=== PATIENT | male | born 1945 | race Caucasian/White ===

== ENCOUNTER → 2020-05-07 | Outpatient (BNVA) | payer MEDICARE, BC, SELFPAY | PROVIDERS: PCP Nurse Practitioner Family; Referring Provider Internal Medicine; Visit Provider Internal Medicine | DX: J44.9 Chronic obstructive pulmonary disease, unspecified (principal); Z79.899 Other long term (current) drug therapy | CPT/HCPCS: 94010; 99213 ==

== ENCOUNTER 2020-06-09 09:18 | Outpatient (REF) | payer MEDICARE, BC, SELFPAY ==
[2020-06-09 11:54] LABS: Anion Gap 11 (12-20); Blood Urea Nitrogen 9 mg/dL (9-16); Calcium 8.8 mg/dL (8.4-10.2); Carbon Dioxide 29 mmol/L (22-29); Chloride 103 mmol/L (96-108); Cholesterol 142 mg/dL; Estimated Glomerular Filt Rate > 60; Glucose Fasting 88 mg/dL (60-99); HDL Cholesterol 65 mg/dL; LDL Cholesterol Calculated 66 mg/dl; Potassium 4.2 mmol/l (3.3-5.1); Sodium 139 mmol/L (135-145); Triglycerides 58 mg/dL
[2020-06-09 12:28] LABS: TSH reflex Free T4 0.73 mIU/mL (0.32-4.0)
== END 2020-06-09 09:19 | disposition home or self-care (01) ==
LOC: HO.HMGCLDS 09:18
PROVIDERS: PCP Nurse Practitioner Family; Visit Provider Nurse Practitioner Family
DX: I25.10 Atherosclerotic heart disease of native coronary artery without angina pectoris (principal); J44.9 Chronic obstructive pulmonary disease, unspecified
CPT/HCPCS: 80048; 80061; 84443

== ENCOUNTER 2020-11-05 09:14 | Outpatient (REF) | payer MEDICARE, BC, SELFPAY ==
[2020-11-05 10:37] LABS: MANUAL DIFF FLAG NO
[2020-11-05 11:03] LABS: Basophils Absolute Auto 0.1 X10*3/uL (0.0-0.2); Basophils Percent Auto 0.9 % (0-2); Eosinophils Absolute Auto 0.3 X10*3/uL (0.0-0.4); Eosinophils Percent Auto 4.9 % (0-4); Hematocrit 43.5 % (42-52); Hemoglobin 14.1 g/dl (14.0-18.0); Imm Gran Abs Auto 0.02 X10*3/uL (0.00-0.03); Imm Gran Pct Auto 0.4 % (0.0-0.4); Lymphocytes Absolute Auto 1.9 X10*3/uL (1.2-4.9); Lymphocytes Percent Auto 33.7 % (20-40); Mean Corpuscular HGB Conc 32.4 g/dl (31.0-36.0); Mean Corpuscular Hemoglobin 28.6 pg (27.0-33.0); Mean Corpuscular Volume 88.2 fL (80-98); Mean Platelet Volume 9.5 fL (9.4-12.4); Monocytes Absolute Auto 0.7 X10*3/uL (0.1-1.2); Monocytes Percent Auto 12.8 % (2-11); Neutrophils Absolute Auto 2.6 X10*3/uL (2.0-8.3); Neutrophils Percent Auto 47.3 % (45-73); Platelet Count 199 X10*3/uL (160-400); Red Blood Count 4.93 X10*6/uL (4.60-5.80); Red Cell Distribution Width 12.5 % (11.0-16.0); White Blood Count 5.5 X10*3/uL (4.8-10.8)
[2020-11-06 06:46] LABS: Immunoglobulin E 95 kU/L (<OR=114)
== END 2020-11-05 09:15 | disposition home or self-care (01) ==
LOC: HO.LAB 09:14
PROVIDERS: PCP Nurse Practitioner Family; Visit Provider Internal Medicine
DX: J44.9 Chronic obstructive pulmonary disease, unspecified (principal); Z87.891 Personal history of nicotine dependence; Z79.899 Other long term (current) drug therapy
CPT/HCPCS: 36415; 82785; 85025; 99212

== ENCOUNTER 2021-01-07 08:17 | Outpatient (REF) | payer MEDICARE, BC, SELFPAY ==
[2021-01-07 11:53] LABS: Alanine Aminotransferase 30 U/L (0-40); Albumin Level 4.5 g/dL (3.5-5.0); Alkaline Phosphatase 89 U/L (39-117); Anion Gap 13 (12-20); Aspartate Amino Transferase 35 U/L (5-37); Bilirubin Total 0.8 mg/dL (0.0-1.0); Blood Urea Nitrogen 16 mg/dL (9-16); Calcium 9.4 mg/dL (8.4-10.2); Carbon Dioxide 28 mmol/L (22-29); Chloride 105 mmol/L (96-108); Cholesterol 156 mg/dL; Estimated Glomerular Filt Rate > 60; Glucose Fasting 92 mg/dL (60-99); HDL Cholesterol 71 mg/dL; LDL Cholesterol Calculated 75 mg/dl; Potassium 4.5 mmol/L (3.3-5.1); Sodium 141 mmol/L (135-145); Triglycerides 53 mg/dL
[2021-01-07 12:16] LABS: Prostate Specific Antigen Scr 0.97 ng/mL (<0.05-4.0); TSH reflex Free T4 0.56 uIU/mL (0.32-4.0)
== END 2021-01-07 08:18 | disposition home or self-care (01) ==
LOC: HO.HMGCLDS 08:17
PROVIDERS: PCP Nurse Practitioner Family; Visit Provider Nurse Practitioner Family
DX: Z12.5 Encounter for screening for malignant neoplasm of prostate (principal); E78.5 Hyperlipidemia, unspecified; I10 Essential (primary) hypertension
CPT/HCPCS: 36415; 80053; 80061; 84153; 84443

== ENCOUNTER → 2021-04-17 08:23 | Outpatient (BNVA) | payer MEDICARE, BC, SELFPAY | PROVIDERS: PCP Nurse Practitioner Family; Visit Provider Nurse Practitioner | DX: Z12.11 Encounter for screening for malignant neoplasm of colon (principal); C34.90 Malignant neoplasm of unspecified part of unspecified bronchus or lung; I25.10 Atherosclerotic heart disease of native coronary artery without angina pectoris; J44.9 Chronic obstructive pulmonary disease, unspecified | CPT/HCPCS: Q3014 ==

== ENCOUNTER → 2021-05-19 09:00 | Outpatient (BNVA) | payer BC, MEDICARE, SELFPAY | PROVIDERS: PCP Nurse Practitioner Family; Visit Provider Internal Medicine ==

== ENCOUNTER 2021-06-10 10:32 | Day surgery (SDC) | payer MEDICARE, BC, SELFPAY ==
[2021-06-04 15:35] VITALS: BMI 26.9
--- NOTE | 2021-06-09 14:32 | HO.ANESPROP2 ---
Documented by User: Virginie Conn NP 06/09/21 14:34 HPI - Anesthesia Eval Consult details Narrative: 75yo M for Colonoscopy PMFSH Active Problems Active Problems: All Active Problems (Updated 05/19/21 @ 13:18 by Justin Crenshaw MD) Lung cancer (Acute) Screening for colon cancer (Acute) Screening PSA (prostate specific antigen) (Acute) HTN (hypertension) (Acute) Dyslipidemia (Acute) Asthma (Acute) CAD (coronary artery disease) (Acute) COPD (chronic obstructive pulmonary disease) (Acute) Past Medical History Medical History (Updated 06/10/21 @ 12:01 by Jane Macdonald RN) Asthma CAD (coronary artery disease) COPD (chronic obstructive pulmonary disease) Ectopic cardiac beats GERD (gastroesophageal reflux disease) HTN (hypertension) Leukopenia Lung cancer Trigger finger Family History Family History Father Medical history non-contributory Unknown family medical history Mother CVD (cardiovascular disease) Brother No problems noted. Son No problems noted. Surgical History Surgical History (Updated 06/10/21 @ 11:53 by Jane Macdonald RN) History of umbilical hernia repair Hx of colonoscopy Hx of hand surgery Hx of left knee surgery Social History Social History Patient Tobacco Use Status: Former Tobacco user Years Smoked: 8 years quit in early 20 Use of substances other than those prescribed or required for medical reasons: No Are you DNR?: No Advance Directives: No Advance Directives Information Provided: Yes Meds Allergies Allergy/AdvReac Type Severity Reaction Status Date / Time cat dander Allergy Severe Unknown Verified 06/10/21 11:43 Home Medications Medication Instructions Recorded Confirmed Last Taken Type famotidine 20 mg tablet 20 mg PO BID 04/19/20 04/17/21 06/10/21 08:00 History fluticasone 500 mcg-salmeterol 50 INHALATION 04/19/20 04/17/21 Unknown History mcg/dose blistr powdr for inhalation latanoprost 0.005 % eye drops drp OPHTHALMIC (EYE) DAILY ml 04/19/20 04/17/21 Unknown History aspirin 81 mg tablet,delayed 81 mg PO DAILY 04/17/21 04/17/21 Unknown History release (Adult Aspirin Regimen) fluticasone 500 mcg-salmeterol 50 1 inh INHALATION BID 04/17/21 04/17/21 Unknown History mcg/dose blistr powdr for inhalation (Advair Diskus) Exam Exam Date and Time: June 09, 2021 1432 Height,Weight and Vital Signs: Height 5 ft 9 in Weight 82.554 kg Pertinent Lab Results Pertinent Lab Results: Laboratory Tests 11/05/20 01/07/21 09:56 08:23 WBC 5.5 Hgb 14.1 Hct 43.5 Plt Count 199 Sodium 141 Potassium 4.5 Chloride 105 Carbon Dioxide 28 BUN 16 D Creatinine 0.96 Assessment and Plan Assessment Anesthesia Assessment: Chart Reviewed Documented by User: Gabriella Ng MD 06/10/21 12:09 [facility] Past Medical History Medical History (Updated 06/10/21 @ 12:01 by Jane Macdonald, RN) Asthma CAD (coronary artery disease) COPD (chronic obstructive pulmonary disease) Ectopic cardiac beats GERD (gastroesophageal reflux disease) HTN (hypertension) Leukopenia Lung cancer Trigger finger Family History Family History Father Medical history non-contributory Unknown family medical history Mother CVD (cardiovascular disease) Brother No problems noted. Son No problems noted. Family history of problems with anesthesia: No Surgical History Surgical History (Updated 06/10/21 @ 11:53 by Jane Macdonald, RN) History of umbilical hernia repair Hx of colonoscopy Hx of hand surgery Hx of left knee surgery History of Problems with Anesthesia: No Social History Social History Patient Tobacco Use Status: Former Tobacco user Years Smoked: 8 years quit in early 20 Use of substances other than those prescribed or required for medical reasons: No Are you DNR?: No Advance Directives: No Advance Directives Information Provided: Yes Meds Allergies Allergy/AdvReac Type Severity Reaction Status Date / Time cat dander Allergy Severe Unknown Verified 06/10/21 11:43 Home Medications Medication Instructions Recorded Confirmed Last Taken Type famotidine 20 mg tablet 20 mg PO BID 04/19/20 04/17/21 06/10/21 08:00 History fluticasone 500 mcg-salmeterol 50 INHALATION 04/19/20 04/17/21 Unknown History mcg/dose blistr powdr for inhalation latanoprost 0.005 % eye drops drp OPHTHALMIC (EYE) DAILY ml 04/19/20 04/17/21 Unknown History aspirin 81 mg tablet,delayed 81 mg PO DAILY 04/17/21 04/17/21 Unknown History release (Adult Aspirin Regimen) fluticasone 500 mcg-salmeterol 50 1 inh INHALATION BID 04/17/21 04/17/21 Unknown History mcg/dose blistr powdr for inhalation (Advair Diskus) Exam Airway Mallampati Class: II (Cap lower lateral left) TM Dist: >3cm Neck ROM: Full Heart: rrr Lungs: cta Assessment and Plan Assessment Anesthesia Assessment: Anesthesia Plan Discussed and Chart Reviewed Final Anesthetic Review Family History of Problems with Anesthesia: No History of Problems with Anesthesia: No NPO: Yes ASA Class: III Final Preanesthetic Review: No Changes in Pt Med Stat, Meds/Allgs Chart Reviewed and Consent Obtained/Reviewed Patient Risk: Intermediate Procedure Risk: Intermediate Anesthetic Plan Anesthetic Plan: MAC: Disposition: Standard PACU
[2021-06-10 11:44] VITALS: BP 151/84; PULSE 72; RESP 16; TEMP 36.6; O2SAT 98
--- NOTE | 2021-06-10 11:58 | MHC.SHP ---
Pre-Procedural Eval Section A Date of Service: 06/10/21 Section B Chief Complaint: Screening Relevant Family History (Specify if Yes): Yes Relevant Social History: None (ex smoker) Present Medications: see Short Stay Collaborative assessment Medical History: Significant History (Asthma Asthma CAD (coronary artery disease) COPD (chronic obstructive pulmonary disease) Ectopic cardiac beats GERD (gastroesophageal reflux disease) HTN (hypertension) Leukopenia Lung cancer Trigger finger) History of Previous Operations: Relevant previous surgery/procedure and date(s) (umbilical hernia repair) Allergies: Allergies Allergy/AdvReac Type Severity Reaction Status Date / Time cat dander Allergy Severe Unknown Verified 06/10/21 11:43 Review of Systems Sugical H&P ROS: Negative: Constitution, Cardiovascular, Respiratory, Neurological, Psychiatric, Hem-Onc, Allergic/Immunologic, Gastrointestinal, Genitourinary, Musculoskeletal, Integumentary, Endocrine and Eyes/Ears/Nose/Throat Exam Surgical H&P Exam: Normal: HEENT, Normal: Heart, Normal: Lungs, Normal: Extremities, Normal: Abdomen, Normal: Skin and Normal: Neurological Plan Diagnosis/Plan: Unchanged I have reviewed the history and physical and performed a pertinent physical examination on my patient. No changes have occurred unless specified.
[2021-06-10] MEDS: Lactated Ringers 1,000 ML 100 ML IVCONT (12:00)
--- NOTE | 2021-06-10 13:06 | PM.OP ---
Brief Operative Note Date of Service: 06/10/21 Pre-op diagnosis: colon screening Post-op diagnosis: same Procedure: see op note Surgeon: Gavin Hemphill MD Anesthesia: MAC Was an Financial Management Consultant used for this Procedure?: No Estimated blood loss (mL): 0 Condition: stable Disposition: PACU
--- NOTE | 2021-06-10 13:07 | W.PM.OPN ---
Operative Note Operative Note Date of Service: 06/10/21 Narrative: Operative Information Procedure Description: Colonoscopy COLONOSCOPY Instrument: Olympus variable stiffness adult scope 190L Colonoscopy Monitoring: Vital signs and clinical assessment, continuous EKG monitoring, Pulse oximetry, Carbon Dioxide monitoring and blood pressure monitoring were done throughout the procedure. Colon withdrawal time was 8 minutes. Procedure: The patient was placed in the left lateral decubitis position and pre-procedure medications were administered. After a digital rectal examination of the ano-rectum, the video colonoscope was inserted into the rectum and advanced through the colon to the cecum/TI. The colonoscope was slowly withdrawn in a retrograde panoramic fashion and the colon mucosa was carefully examined including a retroflexed view of the rectum. Findings and interventions are described below. Procedure Difficulty: easy Findings: Terminal Ileum-normal Cecum:normal Ascending Colon: normal Transverse Colon -normal Descending Colon:normal Sigmoid Colon: scattered small diverticuli Rectum: Retroflexion with moderate sized internal hemorrhoids, grade I Anorectum - normal Colon preparation: [place] Bowel Preparation Scale Right colon; 2 Transverse colon: 2 Left colon; 1 (0 = Unprepared colon segment with mucosa not seen due to solid stool that cannot be cleared. 1 = Portion of mucosa of the colon segment seen, but other areas of the colon segment not well seen due to staining, residual stool and/or opaque liquid. 2 = Minor amount of residual staining, small fragments of stool and/or opaque liquid, but mucosa of colon segment seen well. 3 = Entire mucosa of colon segment seen well with no residual staining, small fragments of stool or opaque liquid) Impression and Post Procedure Diagnosis: internal hemorrhoids diverticular disease Plan: High fiber diet leaflet Avoid straining at stool, epsom salts and sitz bath, anusol supps or cream Repeat Colonoscopy in 5 years due to left sided prep if health allows or earlier if clinically indicated Above findings were reviewed with the patient and relevant handouts were provided if indicated.
[2021-06-10 13:25] VITALS: BP 102/61; PULSE 63; RESP 16; TEMP 36.4; O2SAT 98
[2021-06-10 13:47] VITALS: BP 110/62; PULSE 68; RESP 16; O2SAT 96
== END 2021-06-10 14:15 | disposition home or self-care (01) ==
PROVIDERS: PCP Nurse Practitioner Family; Visit Provider Internal Medicine Gastroenterology
PROC: 0DJD8ZZ Inspection of Lower Intestinal Tract, Via Natural or Artificial Opening Endoscopic (ICD-10-PCS; CPT 45378; principal; 2021-06-10 13:20)
DX: Z12.11 Encounter for screening for malignant neoplasm of colon (principal); K57.30 Diverticulosis of large intestine without perforation or abscess without bleeding; K64.0 First degree hemorrhoids; K21.9 Gastro-esophageal reflux disease without esophagitis; J45.909 Unspecified asthma, uncomplicated; I25.10 Atherosclerotic heart disease of native coronary artery without angina pectoris; J44.9 Chronic obstructive pulmonary disease, unspecified; I10 Essential (primary) hypertension; R00.0 Tachycardia, unspecified; D72.819 Decreased white blood cell count, unspecified; Z79.82 Long term (current) use of aspirin; Z79.51 Long term (current) use of inhaled steroids; Z79.899 Other long term (current) drug therapy; Z85.118 Personal history of other malignant neoplasm of bronchus and lung; Z87.891 Personal history of nicotine dependence
CPT/HCPCS: G0121

== ENCOUNTER → 2021-06-23 10:45 | Outpatient (BNVA) | payer MEDICARE, BC, SELFPAY | PROVIDERS: PCP Nurse Practitioner Family; Referring Provider Nurse Practitioner Family; Visit Provider Nurse Practitioner | DX: Z12.11 Encounter for screening for malignant neoplasm of colon (principal) | CPT/HCPCS: 99212 ==

== ENCOUNTER → 2021-09-24 08:58 | Outpatient (BNVA) | payer MEDICARE, BC, SELFPAY | PROVIDERS: PCP Nurse Practitioner Family; Visit Provider Internal Medicine | DX: J44.9 Chronic obstructive pulmonary disease, unspecified (principal); J30.9 Allergic rhinitis, unspecified | CPT/HCPCS: 99212 ==

== ENCOUNTER → 2021-11-30 13:47 | Outpatient (REF) | payer MEDICARE, BC, SELFPAY ==
--- NOTE | 2021-11-30 13:56 | CA_ITS ---
Transthoracic Echocardiogram Patient (Last, First, Middle): Baljeet Jamil, Gender: Male Date of : 1945 Age: 75 Procedure Date: 11/30/2021 Procedure Type: Transthoracic Echocardiogram Location: OP Height: 175.26 cm Weight: 81.65 kg BSA: 1.98 m2 Heart Rate: bpm BP: 125 / 80 mmHg Chief Security Officer: VH/TO Referring MD: Daniel Mejia [facility] Certified Maintenance Welder: Michael Mobley MD Symptoms: I34.0 - Nonrheumatic mitral (valve) insufficiency Study Quality: Fair ECG Rhythm: Sinus Conclusions: - 1. Normal LV systolic function with grade 1 diastolic dysfunction 2. Normal cardiac valvular Doppler 3. Normal RV systolic pressure 4. No pericardial effusion Findings Left Ventricle Normal left ventricular size, thickness, and systolic function. The visually estimated ejection fraction is between 60-65%. Spectral Doppler is indicative of an impaired relaxation filling pattern. E/E prime ratio is <8, consistent with normal filling pressures. Evidence suggests grade I (mild) diastolic dysfunction. Right Ventricle Normal right ventricular cavity size and systolic function. Atria Both atria are normal in size. There is lipomatous hypertrophy of the interatrial septum. There is no evidence of interatrial shunt. Aortic Valve The aortic valve structure and function is likely normal. There is no aortic valve stenosis. There is no aortic valve regurgitation. Mitral Valve Likely normal mitral valve structure and function. There is trace mitral valve regurgitation. There is no mitral valve stenosis. Pulmonic Valve The pulmonic valve was not well visualized. Tricuspid Valve Likely normal tricuspid valve structure and function. There is trace tricuspid valve regurgitation. The right ventricular systolic pressure is normal. The right ventricular systolic pressure is 16 mmHg. Normal right atrial pressure. There is no evidence of pulmonary hypertension. Great Vessels All visible segments of the aorta are normal in size. The pulmonary artery was not well visualized. Venous The inferior vena cava is normal in size and collapses greater than 50% with inspiration. Pericardium/Pleural There is no evidence of pericardial effusion. Prior Study Comparison No significant change compared to prior study dated: 09/13/2017. Measurements 2D Linear Measurements IVSd: 0.86 0.6-0.9/0.6-1.0 cm LVIDd: 4.80 3.9-5.3/4.2-5.9 cm LVIDd Index: 2.42 2.4-3.2/2.2-3.1 cm/m2 LVIDs: 3.04 2.0-3.6 cm LVPWd: 0.82 0.7-1.1 cm LA Diam: 3.30 2.7-3.8/3.0-4.0 cm LAIDs Index: 1.67 1.5-2.3 cm/m2 LV Mass: 167.70 67-162/88-224 g LV Mass Index: 84.70 43-95/49-115 g/m2 LVOT Diam: 1.80 3.0+(-)1.3 cm 2D Systolic Function EF 4C: 61.90 >55% EF 2C: 62.30 >55% EF BiP: 63.10 >55% Mitral Valve MV Pk E: 0.70 MV PK A: 0.75 MV Decel Time: 197.00 E/A: 0.90 E'Lateral: 8.92 E'Medial: 7.83 E/E' Med: 8.90 E/E' Lat: 7.80 PHT: 58.00 MVA PHT: 3.79 Decel [place]: 3.54 Aortic Valve AoV Pk Adal: 1.56 AoV Mn Adal: 1.11 AoV VTI: 0.32 AoV Pk Grad: 10.00 Aov Mn Grad: 5.00 BURT Cont.VTI: 1.85 LVOT LVOT Pk Adal: 1.10 LVOT Mn Adal: 0.68 LVOT VTI: 0.23 LVOT Pk Grad: 5.00 LVOT Mn Grad: 2.00 LVOT Diam: 1.80 LVOT Area: 2.54 Diastolic Function MV Pk E: 0.70 MV Pk A: 0.75 E/A: 0.90 E'Medial: 7.83 E/E' Med: 8.90 E' Laterial: 8.92 E/E' Lat: 7.80 Right Ventricle TAPSE (mm): 22.00 TVS' Adal: 14.00 Tricuspid Valve TR Pk Adal: 1.83 TR Pk Grad: 13.00 RA Press: 3.00 RVSP: 16.00 Great Vessels Aorta Ao Asc: 3.20 2.1-3.4 cm Updated in Other Vendor System with Status of Final Michael Mobley MD electronically signed on 12/01/2021 4:05:57 PM with status of Final
== END ==
LOC: HO.CARD 13:47
PROVIDERS: Visit Provider Nurse Practitioner Family
DX: I34.0 Nonrheumatic mitral (valve) insufficiency (principal)
CPT/HCPCS: 93306

== ENCOUNTER → 2022-01-14 09:39 | Outpatient (REF) | payer MEDICARE, BC, SELFPAY ==
--- NOTE | ~2022-01-14 | NM_ITS ---
Exercise Myocardial perfusion study Indication: Chest pain to evaluate for myocardial ischemia Technique: The patient was brought in for an exercise perfusion study on 01/14/2022. Patient performed exercise as per Manish protocol and was injected 25 mCi of sestamibi was given intravenously one target HR was achieved. Images were obtained using the SPECT gamma camera interlaced with the gating device. Images were obtained in supine position. Resting perfusion study was performed on 01/15/2022. Patient was administered 25 mCi of sestamibi intravenously at rest. Images were then obtained in supine position. Images obtained with and without CT attenuation. Total DLP 87 mGy-cm. Images were processed with the software and compared side to side in short axis, horizontal long axis and vertical long axis views. Findings: The stress perfusion study showed non attenuated images show mildly to moderately reduced uptake in the inferior wall of the LV myocardium. Remainder of the LV myocardium is normally perfused. Attenuated corrected images show normal uptake of radiotracer in all segments of LV myocardium. The gated study shows normal LV systolic function with calculated LVEF of 68%. LV cavity is normal in size. The gated study shows normal systolic wall thickening and contraction of all segments. There is no transient ischemic dilation. Resting study shows non attenuated images show mildly reduced uptake in the inferior wall of the LV myocardium. Attenuated corrected images were suboptimal. Gating at rest reveals normal systolic wall motion with ejection fraction at 73%. The findings are consistent with normal myocardial perfusion. NM/NM cardiolite stress test Impression: 1. Normal myocardial perfusion 2. Gated LVEF is 68% 3. Transient ischemic dilatation not present Stress EKG is negative for ischemia
--- NOTE | 2022-01-14 09:42 | CA_ITS ---
Acquisition Time: 2022-01-14 10:03:45 Total Exercise Time: 00:05:00 Test Indications: Chest Pain Medications: ALBUTEROL AMLODIPINE ASA ATORVASTATIN CITALOPRAM FAMOTIDINE LISINOPRIL SYMBACORT SINGULAIR Protocol: COLLETTE Max HR: 134 BPM 91% of Pred: 146 BPM Max BP: 192/092 mmHG Max Work Load: 7.0 METS Exercise stress test with exercise 5 min of Collette protocol, with moderate sob, no chest discomfort, with isolated PVCs, one ventricular cuplet and one 4 beat NSVT, isolated PACs and one 3 beat atrial run during exercise, with normotensvie response to exercise, without EKG changes meeting criteria for ischemia. In recovery his breathing normalized. Nuclear images pending. Test reviewed with Dr Mobley. Referred By: Daniel Mejia Overread By: BELLA RODRIGUEZ
== END ==
LOC: HO.CARD 09:39
PROVIDERS: PCP Nurse Practitioner Family; Visit Provider Nurse Practitioner Family
DX: R07.9 Chest pain, unspecified (principal)
CPT/HCPCS: 78452; 93017; A9500; J0280; J2785

== ENCOUNTER → 2022-03-30 09:17 | Outpatient (BNVA) | payer MEDICARE, BC, SELFPAY | PROVIDERS: PCP Nurse Practitioner Family; Visit Provider Internal Medicine | DX: J44.9 Chronic obstructive pulmonary disease, unspecified (principal); J30.9 Allergic rhinitis, unspecified | CPT/HCPCS: 99212 ==

== ENCOUNTER → 2022-10-04 09:22 | Outpatient (BNVA) | payer MEDICARE, BC, SELFPAY | PROVIDERS: PCP Nurse Practitioner Family; Visit Provider Internal Medicine | DX: J45.909 Unspecified asthma, uncomplicated (principal); J44.9 Chronic obstructive pulmonary disease, unspecified | CPT/HCPCS: 99212 ==

== ENCOUNTER 2023-03-01 09:54 | Outpatient (AMB) | payer MEDICARE, OTHER, SELFPAY ==
[2023-03-01 10:10] VITALS: BP 140/82; PULSE 68; O2SAT 94; BMI 27.0
--- NOTE | 2023-03-01 10:10 | MHC.PC.OV ---
Vital Signs 03/01/23 10:10 Height 5 ft 9 in Weight 183 lb BMI 27.0 BP 140/82 H Blood Pressure Location Rt brachial Position Sitting Pulse 68 Pulse Source Pulse Oximeter Pulse Oximetry (%) 94 Oxygen Delivery Method Room Air Intake Visit Reasons: Med review Allergies cat dander Allergy (Severe, Verified 03/01/23 10:12) Unknown Tobacco use date assessed: 03/01/23 Fall risk assessment: No Falls in past year Last assessed Fall Risk: 03/01/23 Dental Screening Dental Screen Date: 03/01/23 Did you have a dental visit in the last 12 months?: Yes Did you have a dental problem in the last 6 months where you did not have access to dental care?: No Was dental information given to patient?: Patient has dentist HPI Med review HPI Details HTN: Blood pressure is managed with amlodipine 5mg and lisinopril 20mg. Pt reports white-coat syndrome. Denies chest pain, shortness of breath, headache, dizziness, and blurred vision. Pt reports some difficulty urinating. He does not feel like he is completely emptying his bladder and he takes longer to urinate. Will order PSA. Denies any dribbling with urination and weak stream, refuses STERLING today. Dyslipidemia: On atorvastatin 40mg. Will order labs. [facility] Medical History Allergic rhinitis Asthma CAD (coronary artery disease) COPD (chronic obstructive pulmonary disease) Ectopic cardiac beats GERD (gastroesophageal reflux disease) HTN (hypertension) Leukopenia Lung cancer Trigger finger Surgical History History of umbilical hernia repair Hx of colonoscopy Hx of hand surgery Hx of left knee surgery Family History Father Medical history non-contributory Unknown family medical history Mother CVD (cardiovascular disease) Brother No problems noted. Son No problems noted. 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 Garcia Ruth, Jess Charles, Benito Kennedy and colleagues, with an educational uziel from [employer]. Review of Systems Const Reports as per HPI Physical exam (Primary Care) Vital Signs: Last Vital Signs Pulse 68 03/01/23 10:10 BP 140/82 H 03/01/23 10:10 Pulse Ox 94 03/01/23 10:10 Oxygen Delivery Method Room Air 03/01/23 10:10 BMI result Body Mass Index 27.0 Tobacco/Smoking Status: Tobacco use Status Tobacco use date assessed 03/01/23 03/01/23 10:16 Patient Tobacco Use Status Former Tobacco user 03/01/23 10:16 e-Cigarette/Vaping Use Never Used 03/01/23 10:16 Thrive Assessment: Date of Thrive Assessment Date Thrive assessed 11/17/21 03/01/23 10:16 Const General: cooperative Orientation/consciousness: patient oriented x3 Resp Effort & Inspection: normal respiratory effort Auscultation: clear to auscultation bilaterally Cardio Rate: regular rate Rhythm: regular rhythm Heart sounds: S1 normal heart sound present and S2 normal heart sound present Other: refused STERLING Neuro General: patient oriented x3 Extrem Right lower extremity: no edema Left lower extremity: no edema Psych Appearance: grossly normal Mental Status: mental status grossly normal Speech and movement: Normal speech and movement present Affect: normal affect Attitude: cooperative Thought process: Normal thought process present Thought content: Normal thought content present Insight: Good insight present (Psych) Judgement: Good judgement present (Psych) Assessment and Plan Assessment & Plan (1) HTN (hypertension): Code(s): I10 - Essential (primary) hypertension Plan: Labs ordered (2) Dyslipidemia: Code(s): E78.5 - Hyperlipidemia, unspecified Plan: Labs ordered (3) Screening PSA (prostate specific antigen): Code(s): Z12.5 - Encounter for screening for malignant neoplasm of prostate Plan: PSA ordered Plan The patient agreed to the use of a director of medical education for this encounter. Scribed for TEOFILO Ledesma by Bree Hadley, director of medical education, on 03/01/2023 at 10:25 EST. Orders: Orders Comprehensive [place]. Panel Fast Today E78.5 - Hyperlipidemia, unspecified, I10 - Essential (primary) hypertension Lipid Panel Today E78.5 - Hyperlipidemia, unspecified, I10 - Essential (primary) hypertension TSH reflex Free T4 Today E78.5 - Hyperlipidemia, unspecified, I10 - Essential (primary) hypertension Complete Blood Count Auto Diff Today E78.5 - Hyperlipidemia, unspecified, I10 - Essential (primary) hypertension UA CC w/rflx Micro + Cult Today E78.5 - Hyperlipidemia, unspecified, I10 - Essential (primary) hypertension Prostate Specific Antigen Scr Today Z12.5 - Encounter for screening for malignant neoplasm of prostate Coding Level of Care Code Est Pt Level 3 (53808) Diagnoses HTN (hypertension) I10 Dyslipidemia E78.5 Screening PSA (prostate specific antigen) Z12.5
== END 2023-03-01 11:00 | disposition home or self-care (01) ==
PROVIDERS: PCP Nurse Practitioner Family; Visit Provider Nurse Practitioner Family
DX: I10 Essential (primary) hypertension (principal); E78.5 Hyperlipidemia, unspecified; Z12.5 Encounter for screening for malignant neoplasm of prostate
CPT/HCPCS: 99213

== ENCOUNTER 2023-03-29 09:43 | Outpatient (AMB) | payer MEDICARE, OTHER, SELFPAY ==
[2023-03-29 09:49] VITALS: BP 120/70; PULSE 68; O2SAT 96; BMI 27.0
--- NOTE | 2023-03-29 09:49 | A.OFFVIS_ITS ---
Intake Vital Signs 03/29/23 09:49 Height 5 ft 9 in Weight 183 lb BMI 27.0 BP 120/70 Blood Pressure Location Lt brachial Position Sitting Pulse 68 Pulse Source Pulse Oximeter Pulse Oximetry (%) 96 Oxygen Delivery Method Room Air Intake Visit Reasons: copd Intake Note: pt is here for follow up and states his breathing is okay but gets a discomfort in center of chest. [employer] Required: No Allergies cat dander Allergy (Severe, Verified 03/29/23 09:54) Unknown Medication List - Last Reconciled 03/29/23 by Justin Crenshaw MD albuterol sulfate 90 mcg/actuation 2 puffs PO Q6H PRN amlodipine 5 mg PO DAILY 90 days ascorbate calcium (vitamin C) 500 mg PO DAILY aspirin (Adult Aspirin Regimen) 81 mg PO DAILY 90 days atorvastatin 40 mg PO DAILY 90 days cholecalciferol (vitamin D3) 50 mcg PO DAILY citalopram 20 mg PO DAILY 90 days famotidine 20 mg PO BID PRN fluticasone propion-salmeterol 250-50 mcg/dose (Advair Diskus) 1 inh inhalation Q12H 90 days latanoprost 0.005% drps ophthalmic (eye) DAILY lisinopril 20 mg PO DAILY montelukast 10 mg PO BEDTIME vitamin E (dl, acetate) 45 mg PO DAILY Do you need a note to return to daycare/school/sports/work: No HPI copd HPI Details 77 YEARS OLD VERY PLEASANT GENTLEMAN, COMES AFTER 6 MONTHS FOR HIS REGULAR FOLLOW-UP. HIS TWO MAIN PROBLEMS OR ALLERGIC RHINITIS AND BRONCHIAL ASTHMA/COPD . 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 HE STARTED DOING YOGA EXERCISE, AND JUST AFTER THE 1ST SESSION HE STARTED HAVING SOME DISCOMFORT IN THE MID STERNAL AREA, IT IS GOING AWAY. BREATHING HAS BEEN STABLE, HE DOES GET SHORT OF BREATH ON MODERATE AMOUNT OF EXERTION. HE DOES HAVE MILD INTERMITTENT COUGH AND MILD NASAL CONGESTION OFF AND. [facility] Medical History Allergic rhinitis Asthma CAD (coronary artery disease) COPD (chronic obstructive pulmonary disease) Ectopic cardiac beats GERD (gastroesophageal reflux disease) HTN (hypertension) Leukopenia Lung cancer Trigger finger Surgical History History of umbilical hernia repair Hx of colonoscopy Hx of hand surgery Hx of left knee surgery Family History Father Medical history non-contributory Unknown family medical history Mother CVD (cardiovascular disease) Brother No problems noted. Son No problems noted. 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 Current occupational exposures/hazards: No Cognitive needs: No Hearing needs: No Vision needs: No Review of Systems Const All systems reviewed & are unremarkable except as noted in HPI and below ENT Reports nasal congestion (Mild intermittent) and Reports nasal discharge Card Denies chest pain, Denies irregular heart rhythm and Denies leg edema Resp Reports as per HPI GI Reports heartburn (Controlled with med) Reports no additional complaints Musc Reports no additional complaints Skin/Breast Reports system reviewed and no additional complaints, except as documented Neuro Reports no additional complaints Psych Reports depression (Controlled with med) Endo Reports no additional complaints Pernell/Lymph Reports no additional complaints Physical Exam Vital Signs: Last Vital Signs Pulse 68 03/29/23 09:49 BP 120/70 03/29/23 09:49 Pulse Ox 96 03/29/23 09:49 Oxygen Delivery Method Room Air 03/29/23 09:49 BMI result Body Mass Index 27.0 Const General: healthy appearing, comfortable, no acute distress, alert and awake Orientation/consciousness: patient oriented x3 HEENT Head: Yes normal to inspection General nose exam: No nasal polyps present and No nasal discharge present Face and sinus: Yes sinuses nontender Mouth: oropharynx normal Throat: Yes posterior oropharynx normal Eyes General: appearance normal, both eyes and all related structures Neck Neck: Yes normal visual inspection, Yes no lymphadenopathy, Yes trachea midline and Yes no JVD Thyroid: Thyroid normal Chest Chest palpation & inspection: normal inspection of the chest, normal palpation of entire chest wall and no tenderness Resp Other: Percussion note resonant, breath sounds are slightly distant with prolonged expiratory phase. No audible wheezes rhonchi or crepitations. Cardio Palpation: normal PMI Rate: regular rate Rhythm: regular rhythm Heart sounds: no gallops and no murmurs Peripheral pulses: Peripheral pulses 2+ throughout GI Palpation (GI): Soft to palpation, nontender, No hepatosplenomegaly present and no masses Auscultation: normal bowel sounds Back/Spine/Pelvis Thoracic/Lumbar Spine: thoracic and lumbar spine normal to inspection Skin General skin exam: no rashes or lesions noted Neuro General: patient oriented x3 and no focal motor deficits Cranial nerves: Yes CN's II-XII intact bilaterally Extrem General: Yes normal to inspection, Yes no clubbing, cyanosis or edema and Yes no calf tenderness Psych Appearance: grossly normal and well kempt Speech and movement: Normal speech and movement present Office Procedures Spirometry Testing Spirometry Comments: Spirometry done in the office, Dr. Crenshaw has the results results scanned to his chart. [id number]- Spirometry Results Reviewed Results Reviewed: SPIROMETRY FVC FEV1 FEF 25- 75 05/07/20 78 % 51 % 31 % 03/29 75 % 44 % 24 5 Assessment & Plan Assessment & Plan (1) COPD (chronic obstructive pulmonary disease): Comment: HE HAS CHRONIC OBSTRUCTIVE , PULM . DISORDER , MODERATELY SEVERE , BUT REMAINS STABLE . TX: CONTINUE AIRDUO 232-14 1 INHALATION B.I.D.. PROAIR 2 PUFFS ONLY PRN * SPIROMETRY FINDINGS ARE SLIGHTLY WORSE THAN IN 2020. SYMPTOM MEDICALLY HE IS STABLE. SO WILL CONTINUE THE SAME REGIMEN. Code(s): J44.9 - Chronic obstructive pulmonary disease, unspecified (2) Asthma: Comment: He has longstanding symptoms of allergic rhinitis/asthma, in the past . And the CBC has shown elevated Eiosinophil count. Also elevated IgE level. Thus indicating that he has a component of allergic rhinitis/asthma. However now it has gone more into chronic obstructive pulmonary disorder. TX CONT. TO TAKE SINGULAIR 10 MG DAILY AND CETRIZINE 10 MG PO ONCE ADAY PRN . also see under COPD Code(s): J45.909 - Unspecified asthma, uncomplicated (3) Allergic rhinitis: Comment: Mild chronic, well controlled. TX: Continue montelukast 10 mg daily may use loratadine 10 mg or Cetrizine 10 mg on a p.r.n. basis Code(s): J30.9 - Allergic rhinitis, unspecified Orders: Orders AMB Spirometry Testing Today J44.9 - Chronic obstructive pulmonary disease, unspecified Coding Level of Care Code Est Pt Level 3 (29838) Diagnoses COPD (chronic obstructive pulmonary disease) J44.9 Asthma J45.909 Allergic rhinitis J30.9 CPT Codes Spirometry - CPT: 42963- Spirometry ([id number])
== END 2023-03-29 10:26 | disposition home or self-care (01) ==
PROVIDERS: PCP Nurse Practitioner Family; Visit Provider Internal Medicine
DX: J44.9 Chronic obstructive pulmonary disease, unspecified (principal); J45.909 Unspecified asthma, uncomplicated; J30.9 Allergic rhinitis, unspecified
CPT/HCPCS: 94010; 99213

== ENCOUNTER → 2023-03-29 09:43 | Outpatient (BNVA) | payer MEDICARE, OTHER, SELFPAY | PROVIDERS: PCP Nurse Practitioner Family; Visit Provider Internal Medicine | DX: J44.9 Chronic obstructive pulmonary disease, unspecified (principal); J45.909 Unspecified asthma, uncomplicated; Z79.899 Other long term (current) drug therapy | CPT/HCPCS: 94010; 99212 ==

== ENCOUNTER 2023-03-30 08:55 | Outpatient (REF) | payer MEDICARE, OTHER, SELFPAY ==
[2023-03-30 11:27] LABS: Appearance Urine Clear; Color Urine Yellow; Glucose Urine UA Negative (Negative); Leukocyte Esterase Urine Trace (Negative); Nitrite Urine Negative (Negative); Specific Gravity - Urine 1.015 (1.005-1.025); UMIC TRIGGER UACC YES; Urine Blood Negative (Negative); Urine Ketones Negative (Negative); Urine Protein Negative (Neg-Trace)
[2023-03-30 11:31] LABS: Bacteria Urine None Seen (None Seen); Hyaline Casts Urine 0-2 /LPF (0-2); RBC Urine 0-2 /HPF (0-2); Squamous Epithelial Cell Urine 0-2 /HPF (0-2); WBC Urine 0-5 /HPF (0-5)
[2023-03-30 11:47] LABS: MANUAL DIFF FLAG NO
[2023-03-30 11:49] LABS: Basophils Percent Auto 0.8 % (0-2); Eosinophils Absolute Auto 0.3 X10*3/uL (0.0-0.4); Eosinophils Percent Auto 6.5 % (0-4); Hematocrit 43.5 % (42.0-52.0); Hemoglobin 14.4 g/dl (14.0-18.0); Imm Gran Abs Auto 0.02 X10*3/uL (0.00-0.03); Imm Gran Pct Auto 0.4 % (0.0-0.4); Lymphocytes Percent Auto 19.4 % (20-40); Mean Corpuscular HGB Conc 33.1 g/dl (31.0-36.0); Mean Corpuscular Hemoglobin 29.2 pg (27.0-33.0); Mean Corpuscular Volume 88.2 fL (80.0-98.0); Monocytes Percent Auto 18.8 % (2-11); Neutrophils Absolute Auto 2.8 x10*3/uL (2.0-8.3); Neutrophils Percent Auto 54.1 % (45-73); Platelet Count 188 X10*3/uL (160-400); Red Blood Count 4.93 X10*6/uL (4.60-5.80); Red Cell Distribution Width 13.3 % (11.0-16.0); White Blood Count 5.1 X10*3/uL (4.8-10.8)
[2023-03-30 12:32] LABS: Prostate Specific Antigen Scr 1.62 ng/mL (<0.05-4.0)
[2023-03-30 12:46] LABS: Alanine Aminotransferase 46 U/L (0-40); Albumin Level 4.3 g/dL (3.5-5.0); Alkaline Phosphatase 83 U/L (39-117); Anion Gap 12 (12-20); Aspartate Amino Transferase 59 U/L (5-37); Bilirubin Total 0.7 mg/dL (0.0-1.0); Blood Urea Nitrogen 13 mg/dL (9-16); Calcium 9.7 mg/dL (8.4-10.2); Carbon Dioxide 28 mmol/L (22-29); Chloride 106 mmol/L (96-108); Cholesterol 149 mg/dL (<200); Estimated Glomerular Filt Rate > 60; Glucose Fasting 97 mg/dL (60-99); HDL Cholesterol 62 mg/dL (>40); LDL Cholesterol Calculated 74 mg/dL (<100); Potassium 4.6 mmol/L (3.3-5.1); Sodium 141 mmol/L (135-145); TSH reflex Free T4 0.79 uIU/mL (0.32-4.0); Triglycerides 68 mg/dL (<150)
== END 2023-03-30 08:56 | disposition home or self-care (01) ==
LOC: HO.HMGCLDS 08:55
PROVIDERS: PCP Nurse Practitioner Family; Visit Provider Nurse Practitioner Family
DX: Z12.5 Encounter for screening for malignant neoplasm of prostate (principal); I10 Essential (primary) hypertension; E78.5 Hyperlipidemia, unspecified
CPT/HCPCS: 36415; 80053; 80061; 81001; 84153; 84443; 85025

== ENCOUNTER 2023-04-07 08:44 | Outpatient (REF) | payer MEDICARE, OTHER, SELFPAY ==
--- NOTE | ~2023-04-07 | US_ITS ---
EXAMINATION: US ABDOMEN COMPLETE CLINICAL INFORMATION: Abnormal levels of other serum enzymes. COMPARISON: None available. TECHNIQUE: Real-time imaging of the abdominal viscera. FINDINGS: PANCREAS: Normal. ABDOMINAL AORTA: The proximal, mid, and distal segments are normal in caliber. There is trace distal atherosclerotic calcifications. INFERIOR VENA CAVA: Visualized portions are normal. LIVER: Normal. The liver is normal in size. The liver contour is normal. Parenchymal echogenicity is normal. No focal hepatic lesion. There is no intrahepatic biliary duct dilatation seen. GALLBLADDER: Normal. The gallbladder is physiologically distended without evidence of stones, sludge, polyps, wall thickening or pericholecystic fluid. COMMON BILE DUCT: Normal in caliber measuring 0.46 cm in diameter. RIGHT KIDNEY: Normal. No hydronephrosis. No renal calculi or focal parenchymal lesions. The kidney measures 11.4 cm in maximum dimension. LEFT KIDNEY: There is mild atherosclerotic calcifications in the upper pole. No hydronephrosis. No renal calculi or focal parenchymal lesions. The kidney measures 11.6 cm in maximum dimension. SPLEEN: Normal. The spleen measures 11.2 cm in maximum dimension. FREE FLUID: None. US/US abdomen complete IMPRESSION: Unremarkable examination.
== END 2023-04-07 08:45 | disposition home or self-care (01) ==
LOC: HO.HMGCX 08:44
PROVIDERS: PCP Nurse Practitioner Family; Visit Provider Nurse Practitioner Family
DX: R74.8 Abnormal levels of other serum enzymes (principal)
CPT/HCPCS: 76700

== ENCOUNTER 2023-04-29 09:11 | Outpatient (REF) | payer MEDICARE, OTHER, SELFPAY | END 2023-04-29 09:12 | disposition home or self-care (01) | LOC: HO.HMGCLDS 09:11 | PROVIDERS: PCP Nurse Practitioner Family; Visit Provider Nurse Practitioner Family | DX: I10 Essential (primary) hypertension (principal); R74.8 Abnormal levels of other serum enzymes; E78.5 Hyperlipidemia, unspecified | CPT/HCPCS: 36415; 80076; 81003; 86704; 86706; 86709; 86803; 87340 ==

== ENCOUNTER 2023-07-06 12:59 | Outpatient (AMB) | payer MEDICARE, OTHER, SELFPAY ==
--- NOTE | 2023-07-06 13:14 | MHC.OFFWIV ---
Intake Vital Signs 07/06/23 13:28 Height 5 ft 9 in Weight 183 lb BMI 27.0 BP 110/70 Blood Pressure Location Lt brachial Position Sitting Pulse 67 Pulse Source Pulse Oximeter Temp 97.7 F Pulse Oximetry (%) 96 Oxygen Delivery Method Room Air Intake Visit Reasons: EST/congestion([phone]) Intake Note: pt is here today for congestion startred tuesday Patient Tobacco Use Status: Former Tobacco user Allergies cat dander Allergy (Severe, Verified 07/06/23 13:30) Unknown Do you need a note to return to daycare/school/sports/work: Yes HPI HPI Comments History of Present Illness Details patient has hx of lung ca with partial lung removal he said ST over weekend with hoarsness Has congestion and cough now Called director nursery school but unable to prescribe anything for him Some SOB but no CP No fever but + chill No body aches He tried OTC mucinex with some relief Feels like mucus stuck in chest PFSH Medical History Allergic rhinitis Asthma CAD (coronary artery disease) COPD (chronic obstructive pulmonary disease) Ectopic cardiac beats GERD (gastroesophageal reflux disease) HTN (hypertension) Leukopenia Lung cancer Trigger finger Surgical History History of umbilical hernia repair Hx of colonoscopy Hx of hand surgery Hx of left knee surgery Family History Father Medical history non-contributory Unknown family medical history Mother CVD (cardiovascular disease) Brother No problems noted. Son No problems noted. 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 Current occupational exposures/hazards: No Cognitive needs: No Hearing needs: No Vision needs: No Review of Systems Const Reports chills, Denies fever(s), Denies headache(s) and Denies malaise Eyes Denies blurry vision ENT Denies dizziness, Denies ear discharge, Denies headache(s), Reports nasal congestion, Reports nasal discharge, Reports sinus pressure, Denies sore throat and Denies throat swelling Card Denies chest pain Resp Reports cough Neuro Denies dizziness and Denies headache(s) Aller/Immun Denies throat swelling Physical Exam Vital Signs: Last Vital Signs Temp 97.7 F 07/06/23 13:28 Pulse 67 07/06/23 13:28 BP 110/70 07/06/23 13:28 Pulse Ox 96 07/06/23 13:28 Oxygen Delivery Method Room Air 07/06/23 13:28 BMI result Body Mass Index 27.0 General: Non-toxic, NAD. Speaking full sentences. Skin: Warm dry throughout Eye: EOMI HENT: Airway patent. Uvula midline. No pharyngeal erythema or edema. No MANAGER PLANT. Bilateral canals clear. TM non-erythematous, non-bulging. No TM perforation or hemotympanum noted. Respiratory: CTA bilaterally. No wheezes, rales or rhonchi Cardiac: RRR. No murmur MSK: Full ROM extremities. Neurology: A/O. No aphasia or facial droop. Gait without abnormality Psych: Good mood and affect Results AMB Rapid Strep AMB Rapid Strep Negative Last Edit by Minnie Schwartz CMA on 07/06/23 13:32 Results Reviewed Results Reviewed: Laboratory Last Values Strep Scn Rapid Clinic Negative 07/06/23 13:31 Assessment & Plan Assessment & Plan (1) Cough: Code(s): R05.9 - Cough, unspecified Qualifiers: Cough type: acute Qualified Code(s): R05.1 - Acute cough Plan Patient seen and evaluated. Strep negative declined rsv/flu/covid tessalon for cough Will monitor for fever, phelgm color change, onset SOB/CP and call with concerns of bacteria Follow up with pulmonology ED if worse Patient gave verbal understanding and had no additional questions or concerns at time of discharge All questions answered Orders: Orders AMB Rapid Strep Screen 07/06/23 Z13.9 - Encounter for screening, unspecified Medications: New benzonatate 100 mg PO BID-TID PRN 14 caps 0RF cough R05.9 - Cough, unspecified Coding Level of Care Code Est Pt Level 3 (01690) Diagnoses Acute cough R05.1 Cough type: acute
[2023-07-06 13:28] VITALS: BP 110/70; PULSE 67; TEMP 36.5; O2SAT 96; BMI 27.0
== END 2023-07-06 14:05 | disposition home or self-care (01) ==
PROVIDERS: PCP Nurse Practitioner Family; Visit Provider Physician Assistant
DX: R05.1 Acute cough (principal)
CPT/HCPCS: 87880; 99213

== ENCOUNTER 2023-11-17 08:47 | Outpatient (AMB) | payer MEDICARE, OTHER, SELFPAY ==
--- NOTE | 2023-11-17 09:04 | A.OFFVIS_ITS ---
Vital Signs 11/17/23 09:06 Height 5 ft 9 in Weight 184 lb 1.376 oz BMI 27.2 BP 112/68 Blood Pressure Location Lt brachial Position Sitting Pulse 73 Pulse Source Pulse Oximeter Pulse Oximetry (%) 97 Oxygen Delivery Method Room Air Intake Visit Reasons: copd Intake Note: pt is here for follow up and states he states he sometimes has a dry hacky cough [employer] Required: No Allergies cat dander Allergy (Severe, Verified 11/17/23 09:15) Unknown Medication List - Last Reconciled 11/17/23 by Justin Crenshaw MD albuterol sulfate 90 mcg/actuation 2 puffs PO Q6H PRN amlodipine 5 mg PO DAILY 90 days ascorbate calcium (vitamin C) 500 mg PO DAILY aspirin (Adult Aspirin Regimen) 81 mg PO DAILY 90 days atorvastatin 40 mg PO DAILY 90 days benzonatate 100 mg PO BID-TID PRN cholecalciferol (vitamin D3) 50 mcg PO DAILY citalopram 20 mg PO DAILY 90 days doxycycline hyclate 100 mg PO BID 7 days famotidine 20 mg PO BID PRN fluticasone propion-salmeterol 250-50 mcg/dose (Advair Diskus) 1 inh inhalation Q12H 90 days fluticasone propion-salmeterol 250-50 mcg/dose (Wixela Inhub) 1 inh inhalation BID 30 days latanoprost 0.005% drps ophthalmic (eye) DAILY lisinopril 20 mg PO DAILY montelukast 10 mg PO BEDTIME vitamin E (dl, acetate) 45 mg PO DAILY Do you need a note to return to daycare/school/sports/work: No HPI HPI copd: Details: Baljeet is here for 4 months follow-up. Overall he is doing well and has remained stable. He still has nasal allergy and intermittent cough, especially in the morning. The breathing overall is remaining very stable. He will be starting his guarding activities and, will experience somewhat increased nasal congestion. We had a good discussion about controlling the allergy symptoms. [facility] Medical History Allergic rhinitis Asthma Ectopic cardiac beats Lung cancer Leukopenia CAD (coronary artery disease) Trigger finger GERD (gastroesophageal reflux disease) HTN (hypertension) COPD (chronic obstructive pulmonary disease) Surgical History Hx of left knee surgery Hx of colonoscopy Hx of hand surgery History of umbilical hernia repair Family History Father Medical history non-contributory Unknown family medical history Mother CVD (cardiovascular disease) Brother No problems noted. Son No problems noted. 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 Current occupational exposures/hazards: No Cognitive needs: No Hearing needs: No Vision needs: No Review of Systems Const All systems reviewed & are unremarkable except as noted in HPI and below ENT Reports nasal congestion (Mild intermittent) and Reports nasal discharge Card Denies chest pain, Denies irregular heart rhythm and Denies leg edema Resp Reports as per HPI GI Reports heartburn (Controlled with med) Reports no additional complaints Musc Reports no additional complaints Skin/Breast Reports system reviewed and no additional complaints, except as documented Neuro Reports no additional complaints Psych Reports depression (Controlled with med) Endo Reports no additional complaints Pernell/Lymph Reports no additional complaints Physical Exam Vital Signs: Last Vital Signs Pulse 73 11/17/23 09:06 BP 112/68 11/17/23 09:06 Pulse Ox 97 11/17/23 09:06 Oxygen Delivery Method Room Air 11/17/23 09:06 BMI result Body Mass Index 27.2 Const General: healthy appearing, comfortable, no acute distress, alert and awake Orientation/consciousness: patient oriented x3 HEENT Head: Yes normal to inspection General nose exam: No nasal polyps present and No nasal discharge present Face and sinus: Yes sinuses nontender Mouth: oropharynx normal Throat: Yes posterior oropharynx normal Eyes General: appearance normal, both eyes and all related structures Neck Neck: Yes normal visual inspection, Yes no lymphadenopathy, Yes trachea midline and Yes no JVD Thyroid: Thyroid normal Chest Chest palpation & inspection: normal inspection of the chest, normal palpation of entire chest wall and no tenderness Resp Other: Percussion note resonant, breath sounds are slightly distant with prolonged expiratory phase. No audible wheezes rhonchi or crepitations. Cardio Palpation: normal PMI Rate: regular rate Rhythm: regular rhythm Heart sounds: no gallops and no murmurs Peripheral pulses: Peripheral pulses 2+ throughout GI Palpation (GI): Soft to palpation, nontender, No hepatosplenomegaly present and no masses Auscultation: normal bowel sounds Back/Spine/Pelvis Thoracic/Lumbar Spine: thoracic and lumbar spine normal to inspection Skin General skin exam: no rashes or lesions noted Neuro General: patient oriented x3 and no focal motor deficits Cranial nerves: Yes CN's II-XII intact bilaterally Extrem General: Yes normal to inspection, Yes no clubbing, cyanosis or edema and Yes no calf tenderness Psych Appearance: grossly normal and well kempt Speech and movement: Normal speech and movement present Assessment & Plan Assessment & Plan (1) Asthma: Comment: He has longstanding symptoms of allergic rhinitis/asthma, in the past . And the CBC has shown elevated Eiosinophil count. Also elevated IgE level. Thus indicating that he has a component of allergic rhinitis/asthma. However now it has gone more into chronic obstructive pulmonary disorder. also see under COPD Code(s): J45.909 - Unspecified asthma, uncomplicated Category: Medical Plan: TX CONT. TO TAKE SINGULAIR 10 MG DAILY AND CETRIZINE 10 MG PO ONCE ADAY PRN . MAY ALSO USE FLONASE NASAL SPRAY 2 SPRAYS IN EACH NOSTRIL DAILY PRN (2) COPD (chronic obstructive pulmonary disease): Comment: HE HAS CHRONIC OBSTRUCTIVE , PULM . DISORDER , MODERATELY SEVERE , BUT REMAINS STABLE . Code(s): J44.9 - Chronic obstructive pulmonary disease, unspecified Category: Medical Plan: TX: CONTINUE WIXELA 250-50 1 INHALATION B.I.D.. PROAIR 2 PUFFS ONLY PRN (3) Allergic rhinitis: Comment: Mild chronic, well controlled. Code(s): J30.9 - Allergic rhinitis, unspecified Category: Medical Plan: TX: Continue montelukast 10 mg daily may use loratadine 10 mg or Cetrizine 10 m g on a p.r.n. basis When symptoms are persistent he may also add using Flonase nasal spray 2 spray each nostril daily. Coding Level of Care Code Est Pt Level 3 (94709) Diagnoses Asthma J45.909 COPD (chronic obstructive pulmonary disease) J44.9 Allergic rhinitis J30.9
[2023-11-17 09:06] VITALS: BP 112/68; PULSE 73; O2SAT 97; BMI 27.2
== END 2023-11-17 09:38 | disposition home or self-care (01) ==
PROVIDERS: Visit Provider Internal Medicine
DX: J45.909 Unspecified asthma, uncomplicated (principal); J44.9 Chronic obstructive pulmonary disease, unspecified; J30.9 Allergic rhinitis, unspecified
CPT/HCPCS: 99213

== ENCOUNTER → 2023-11-17 08:47 | Outpatient (BNVA) | payer MEDICARE, OTHER, SELFPAY | PROVIDERS: Visit Provider Internal Medicine | DX: J44.9 Chronic obstructive pulmonary disease, unspecified (principal); J30.9 Allergic rhinitis, unspecified; Z79.899 Other long term (current) drug therapy | CPT/HCPCS: 99212 ==

== ENCOUNTER 2024-03-21 09:31 | Outpatient (AMB) | payer MEDICARE, OTHER, SELFPAY ==
--- NOTE | 2024-03-21 09:37 | MHC.OFFVIS ---
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: No Allergies cat dander Allergy (Severe, Verified 03/21/24 09:55) Unknown Medication List - Last Reconciled 03/21/24 by Justin Crenshaw MD albuterol sulfate 90 mcg/actuation 2 puffs PO Q6H PRN amlodipine 5 mg PO DAILY 90 days ascorbate calcium (vitamin C) 500 mg PO DAILY aspirin (Adult Aspirin Regimen) 81 mg PO DAILY 90 days atorvastatin 40 mg PO DAILY 90 days cholecalciferol (vitamin D3) 50 mcg PO DAILY citalopram 20 mg PO DAILY 90 days famotidine 20 mg PO BID PRN fluticasone propion-salmeterol 250-50 mcg/dose (Wixela Inhub) 1 inh inhalation BID 30 days latanoprost 0.005% drps ophthalmic (eye) DAILY lisinopril 20 mg PO DAILY montelukast 10 mg PO BEDTIME vitamin E (dl, acetate) 45 mg PO DAILY Do you need a note to return to daycare/school/sports/work: No HPI HPI COPD: Details: This 78 years old gentleman is here for his routine 4 months follow-up. He suffers from chronic allergic asthma/COPD , and allergic rhinitis with mild eosinophilia. He does have multiple environmental allergies especially when he works in the garden area. Currently with the help of montelukast his allergies are under good control and he uses cetirizine 10 mg p.o. p.r.n. if there is nasal congestion after he works in the garden area. He is switching from Advair Diskus to Wixela 250-50 and his breathing remains stable without any recurrence of wheezing. [facility] Medical History Allergic rhinitis Asthma Ectopic cardiac beats Lung cancer Leukopenia CAD (coronary artery disease) Trigger finger GERD (gastroesophageal reflux disease) HTN (hypertension) COPD (chronic obstructive pulmonary disease) Surgical History Hx of left knee surgery Hx of colonoscopy Hx of hand surgery History of umbilical hernia repair Family History Father Medical history non-contributory Unknown family medical history Mother CVD (cardiovascular disease) Brother No problems noted. Son No problems noted. 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 Current occupational exposures/hazards: No Cognitive needs: No Hearing needs: No Vision needs: No Review of Systems Const All systems reviewed & are unremarkable except as noted in HPI and below ENT Reports nasal congestion (Mild intermittent) and Reports nasal discharge Card Denies chest pain, Denies irregular heart rhythm and Denies leg edema Resp Reports as per HPI GI Reports heartburn (Controlled with med) Reports no additional complaints Musc Reports no additional complaints Skin/Breast Reports system reviewed and no additional complaints, except as documented Neuro Reports no additional complaints Psych Reports depression (Controlled with med) Endo Reports no additional complaints Pernell/Lymph Reports no additional complaints Physical Exam Vital Signs: Last Vital Signs Pulse 73 03/21/24 09:38 BP 122/64 03/21/24 09:38 Pulse Ox 96 03/21/24 09:38 Oxygen Delivery Method Room Air 03/21/24 09:38 BMI result Body Mass Index 26.9 Const General: healthy appearing, comfortable, no acute distress, alert and awake Orientation/consciousness: patient oriented x3 HEENT Head: Yes normal to inspection General nose exam: No nasal polyps present and No nasal discharge present Face and sinus: Yes sinuses nontender Mouth: oropharynx normal Throat: Yes posterior oropharynx normal Eyes General: appearance normal, both eyes and all related structures Neck Neck: Yes normal visual inspection, Yes no lymphadenopathy, Yes trachea midline and Yes no JVD Thyroid: Thyroid normal Chest Chest palpation & inspection: normal inspection of the chest, normal palpation of entire chest wall and no tenderness Resp Other: Percussion note resonant, breath sounds are slightly distant with prolonged expiratory phase. No audible wheezes rhonchi or crepitations. Cardio Palpation: normal PMI Rate: regular rate Rhythm: regular rhythm Heart sounds: no gallops and no murmurs Peripheral pulses: Peripheral pulses 2+ throughout GI Palpation (GI): Soft to palpation, nontender, No hepatosplenomegaly present and no masses Auscultation: normal bowel sounds Back/Spine/Pelvis Thoracic/Lumbar Spine: thoracic and lumbar spine normal to inspection Skin General skin exam: no rashes or lesions noted Neuro General: patient oriented x3 and no focal motor deficits Cranial nerves: Yes CN's II-XII intact bilaterally Extrem General: Yes normal to inspection, Yes no clubbing, cyanosis or edema and Yes no calf tenderness Psych Appearance: grossly normal and well kempt Speech and movement: Normal speech and movement present Assessment & Plan Assessment & Plan (1) COPD (chronic obstructive pulmonary disease): Comment: HE HAS CHRONIC OBSTRUCTIVE , PULM . DISORDER , MODERATELY SEVERE , BUT REMAINS STABLE . Code(s): J44.9 - Chronic obstructive pulmonary disease, unspecified Category: Medical Plan: Wixela 250-51 inhalation b.i.d. Montelukast 10 mg daily. Albuterol HFA 2 puffs Q 4-6 hours p.r.n. (2) Asthma: Comment: He has longstanding symptoms of allergic rhinitis/asthma, in the past . And the CBC has shown elevated Eiosinophil count. Also elevated IgE level. Thus indicating that he has a component of allergic rhinitis/asthma. However now it has gone more into chronic obstructive pulmonary disorder. Code(s): J45.909 - Unspecified asthma, uncomplicated Category: Medical Plan: as under COPD (3) Allergic rhinitis: Comment: Mild chronic, well controlled. Code(s): J30.9 - Allergic rhinitis, unspecified Category: Medical Plan: continue Montelukast 10 mg daily may use cetirizine 10 mg half or 1 tablet once a day p.r.n. for acute nasal congestion. Coding Level of Care Code Est Pt Level 3 (00208) Diagnoses COPD (chronic obstructive pulmonary disease) J44.9 Asthma J45.909 Allergic rhinitis J30.9
[2024-03-21 09:38] VITALS: BP 122/64; PULSE 73; O2SAT 96; BMI 26.9
== END 2024-03-21 09:56 | disposition home or self-care (01) ==
PROVIDERS: PCP Nurse Practitioner Family; Visit Provider Internal Medicine
DX: J44.9 Chronic obstructive pulmonary disease, unspecified (principal); J45.909 Unspecified asthma, uncomplicated; J30.9 Allergic rhinitis, unspecified
CPT/HCPCS: 99213

== ENCOUNTER → 2024-03-21 09:31 | Outpatient (BNVA) | payer MEDICARE, OTHER, SELFPAY | PROVIDERS: PCP Nurse Practitioner Family; Visit Provider Internal Medicine | DX: J44.9 Chronic obstructive pulmonary disease, unspecified (principal); J30.9 Allergic rhinitis, unspecified | CPT/HCPCS: 99212 ==

== ENCOUNTER 2024-07-31 09:41 | Outpatient (AMB) | payer MEDICARE, OTHER, SELFPAY ==
--- NOTE | 2024-07-31 09:47 | A.OFFVIS_ITS ---
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: No Allergies cat dander Allergy (Severe, Verified 07/31/24 10:09) Unknown Medication List - Last Reconciled 07/31/24 by Justin Crenshaw MD albuterol sulfate 90 mcg/actuation 2 puffs PO Q6H PRN amlodipine 5 mg PO DAILY 90 days ascorbate calcium (vitamin C) 500 mg PO DAILY aspirin (Adult Aspirin Regimen) 81 mg PO DAILY 90 days atorvastatin 40 mg PO DAILY 90 days cholecalciferol (vitamin D3) 50 mcg PO DAILY citalopram 20 mg PO DAILY 90 days famotidine 20 mg PO BID PRN fluticasone propion-salmeterol 250-50 mcg/dose (Wixela Inhub) 1 inh inhalation BID 30 days latanoprost 0.005% drps ophthalmic (eye) DAILY lisinopril 20 mg PO DAILY montelukast 10 mg PO BEDTIME tamsulosin 0.4 mg PO BEDTIME vitamin E (dl, acetate) 45 mg PO DAILY Do you need a note to return to daycare/school/sports/work: No HPI HPI COPD: Details: THIS 78 YEARS OLD GENTLEMAN IS HERE FOR FOLLOW-UP AFTER 4 MONTHS. HE HAS CHRONIC ALLERGIC RHINITIS/BRONCHIAL ASTHMA/COPD. RECENTLY HIS CAT , AND SINCE THEN HIS NASAL CONGESTION AND COUGH HAS BEEN MUCH LESS. BREATHING IS OKAY WITHOUT ANY SPELLS OF WHEEZING. [facility] Medical History Allergic rhinitis Asthma Ectopic cardiac beats Lung cancer Leukopenia CAD (coronary artery disease) Trigger finger GERD (gastroesophageal reflux disease) HTN (hypertension) COPD (chronic obstructive pulmonary disease) Surgical History Hx of left knee surgery Hx of colonoscopy Hx of hand surgery History of umbilical hernia repair Family History Father Medical history non-contributory Unknown family medical history Mother CVD (cardiovascular disease) Brother No problems noted. Son No problems noted. 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 Current occupational exposures/hazards: No Cognitive needs: No Hearing needs: No Vision needs: No Review of Systems Const All systems reviewed & are unremarkable except as noted in HPI and below ENT Reports nasal congestion (Mild intermittent) and Reports nasal discharge Card Denies chest pain, Denies irregular heart rhythm and Denies leg edema Resp Reports as per HPI GI Reports heartburn (Controlled with med) Reports no additional complaints Musc Reports no additional complaints Skin/Breast Reports system reviewed and no additional complaints, except as documented Neuro Reports no additional complaints Psych Reports depression (Controlled with med) Endo Reports no additional complaints Pernell/Lymph Reports no additional complaints Physical Exam Vital Signs: Last Vital Signs Pulse 77 07/31/24 09:48 BP 130/68 07/31/24 09:48 Pulse Ox 97 07/31/24 09:48 Oxygen Delivery Method Room Air 07/31/24 09:48 BMI result Body Mass Index 27.7 Const General: healthy appearing, comfortable, no acute distress, alert and awake Orientation/consciousness: patient oriented x3 HEENT Head: Yes normal to inspection General nose exam: No nasal polyps present and No nasal discharge present Face and sinus: Yes sinuses nontender Mouth: oropharynx normal Throat: Yes posterior oropharynx normal Eyes General: appearance normal, both eyes and all related structures Neck Neck: Yes normal visual inspection, Yes no lymphadenopathy, Yes trachea midline and Yes no JVD Thyroid: Thyroid normal Chest Chest palpation & inspection: normal inspection of the chest, normal palpation of entire chest wall and no tenderness Resp Other: Percussion note resonant, breath sounds are slightly distant with prolonged expiratory phase. No audible wheezes rhonchi or crepitations. Cardio Palpation: normal PMI Rate: regular rate Rhythm: regular rhythm Heart sounds: no gallops and no murmurs Peripheral pulses: Peripheral pulses 2+ throughout GI Palpation (GI): Soft to palpation, nontender, No hepatosplenomegaly present and no masses Auscultation: normal bowel sounds Back/Spine/Pelvis Thoracic/Lumbar Spine: thoracic and lumbar spine normal to inspection Skin General skin exam: no rashes or lesions noted Neuro General: patient oriented x3 and no focal motor deficits Cranial nerves: Yes CN's II-XII intact bilaterally Extrem General: Yes normal to inspection, Yes no clubbing, cyanosis or edema and Yes no calf tenderness Psych Appearance: grossly normal and well kempt Speech and movement: Normal speech and movement present Assessment & Plan Assessment & Plan (1) COPD (chronic obstructive pulmonary disease): Comment: HE HAS CHRONIC OBSTRUCTIVE PULM . DISORDER , MODERATELY SEVERE , BUT REMAINS STABLE AND CONTROLLED Code(s): J44.9 - Chronic obstructive pulmonary disease, unspecified Category: Medical Plan: CONTINUE WIXELA 250-51 INHALATION B.I.D. ALBUTEROL HFA 2 PUFFS Q 4-6 HOURS ONLY P.R.N. (2) Allergic rhinitis: Comment: HISTORY OF CHRONIC ALLERGIC RHINITIS WITH FREQUENT FLARE UPS ESPECIALLY IN SUMMER MONTHS. HIS CT WAS A BIG SOURCE OF HIS ALLERGIES. FEELS BETTER SINCE HIS CT . ALSO HE HAS BEEN FEELING BETTER SINCE HE IS ON MONTELUKAST. Code(s): J30.9 - Allergic rhinitis, unspecified Category: Medical Plan: CONTINUE USING MONTELUKAST 10 MG DAILY AND FLONASE 2 SPRAY EACH NOSTRIL DAILY Coding Level of Care Code Est Pt Level 3 (69799) Diagnoses COPD (chronic obstructive pulmonary disease) J44.9 Allergic rhinitis J30.9
[2024-07-31 09:48] VITALS: BP 130/68; PULSE 77; O2SAT 97; BMI 27.7
== END 2024-07-31 10:09 | disposition home or self-care (01) ==
PROVIDERS: PCP Nurse Practitioner Family; Visit Provider Internal Medicine
DX: J44.9 Chronic obstructive pulmonary disease, unspecified (principal); J30.9 Allergic rhinitis, unspecified
CPT/HCPCS: 99213

== ENCOUNTER → 2024-07-31 09:41 | Outpatient (BNVA) | payer MEDICARE, OTHER, SELFPAY | PROVIDERS: PCP Nurse Practitioner Family; Visit Provider Internal Medicine | DX: J44.9 Chronic obstructive pulmonary disease, unspecified (principal); J30.9 Allergic rhinitis, unspecified | CPT/HCPCS: 99212 ==

== ENCOUNTER 2024-10-04 10:19 | Outpatient (AMB) | payer MEDICARE, OTHER, SELFPAY ==
--- NOTE | 2024-10-04 10:48 | A.OFFVIS_ITS ---
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 Pt is on a statin. BP is stable, lipids ordered. #2 pt is on flomax, he reports still having excessive dribbling after urination and incomplete bladder emptying. WIll refer to urology [facility] Medical History Allergic rhinitis Asthma Ectopic cardiac beats Lung cancer Leukopenia CAD (coronary artery disease) Trigger finger GERD (gastroesophageal reflux disease) HTN (hypertension) COPD (chronic obstructive pulmonary disease) Surgical History Hx of left knee surgery Hx of colonoscopy Hx of hand surgery History of umbilical hernia repair Family History Father Medical history non-contributory Unknown family medical history Mother CVD (cardiovascular disease) Brother No problems noted. Son No problems noted. 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 Current occupational exposures/hazards: No Cognitive needs: No Hearing needs: No Vision needs: No Questionnaire Medicare Wellness Checkup [age] What gender do you identify with?: male During the past 4 weeks, how much have you been bothered by emotional problems such as feeling anxious, depressed, irritable, sad or downhearted, and blue?: slightly During the past 4 weeks, has your physical & emotional health limited your social activities with family, friends, neighbors, or groups?: not at all During the past 4 weeks, how much bodily pain have you generally had?: very mild pain During the past 4 weeks, was someone available to help you if you needed & wanted help?: yes, as much as I wanted During the past 4 weeks, what was the hardest physical activity you could do for at least 2 minutes?: very heavy Can you get to places out of walking distance without help? (For eg., can you travel alone on buses, taxis or drive your car?): Yes Can you go shopping for groceries or clothes without someone's help?: Yes Can you prepare your own meals?: Yes Can you do your housework without help?: Yes Because of any health problems, do you need the help of another person with your personal care needs such as eating, bathing, dressing or getting around the house?: No Can you handle your own money without help?: Yes During the past 4 weeks, how would you rate your health in general?: very good During the past 4 weeks how have things been going for you?: pretty well Are you having difficulties driving your car?: no Do you always fasten your seat belt when you are in a car?: yes, usually During past 4 weeks, have you been bothered by the following: never: Falling or dizzy when standing up, Trouble eating well?, Teeth or denture problems?, Problems using the telephone? and Tiredness or fatigue? and sometimes: Sexual problems? Have you fallen 2 or more times in the past year?: No Are you afraid of falling?: No Are you a smoker?: no During the past 4 weeks, how many drinks of wine, beer, or other alcoholic beverages did you have?: no alcohol at all Do you exercise for about 20 minutes 3 or more times a week?: yes, most of the time Have you been given information to help with the following?: no: Hazards in your house that might hurt you? and no: Keeping track of your medications? How often do you have trouble taking medicines the way you have been told to take them?: I always take medicine as prescribed How confident are you that you can control & manage most of your health problems?: very confident What is your race?: or origin or descent Mini Mental State Exam (MMSE) Orientation What is the (year) (season) (date) (day) (month)?: year, season, date, day and month Where are we (state) (county) (town or city) (hospital) (floor)?: state, county, town or city, hospital/clinic and floor Registration Name of 3 unrelated objects clearly and slowly, then ask patient to repeat all 3 of them. (1st repeat determines score. Make sure they can repeat all three): object 1, object 2 and object 3 Attention & Calculation (CHOOSE ONE) Spell WORLD backwards (DLROW): 3 letters Recall Ask patient to repeat the 3 items from question #3.: object 1, object 2 and object 3 Language Show patient a wristwatch & ask what it is. Repeat for pencil.: watch and pencil Ask the patient to repeat the phrase 'No ifs, ands, or buts' after you.: correct Ask the patient to 'take a piece of paper with their right hand' 'fold paper in half' 'place paper on floor': take paper in right hand, fold paper in half and place paper on floor Print the sentence 'CLOSE YOUR EYES' on a piece. If patient actually closes eyes then score.: followed written direction Give patient a blank piece of paper & ask to write a sentence. Score if it contains a noun & verb.: sentence contains subject and verb Ask patient to copy figure of intersecting pentagons exactly. Score if all 10 angles & 2 intersects are included.: all 10 angles present & 2 are intersected Score Score: 28 Activity of Daily Living Bathing - sponge bath, tub bath or shower: receives no assistance (gets in/out by self, if usual bathing means Dressing - getting clothes from closets & drawers, including inner/outer garments & fasteners.: gets clothes & gets completely dressed without help Toileting - going to the 'toilet room' for urine/bowel elimination & cleaning self/arranging clothes: goes to toilet room, cleans self, arranges clothes without help Transfer: moves in & out of bed and chair without help (may use support object) Continence: controls urination/bowel movements completely by self Feeding: feeds self without help Total Score: 0 Information obtained from: patient Using telephone: independent Traveling: independent Shopping: independent Preparing meals: independent Housework: independent Taking medicine: independent Managing money: independent PHQ-9 Over the last 2 weeks, how often have you been bothered by any of the following problems? 1. Little interest or pleasure in doing things: not at all 2. Feeling down, depressed, or hopeless: not at all 3. Trouble falling or staying asleep, or sleeping too much: not at all 4. Feeling tired or having little energy: not at all 5. Poor appetite or overeating: not at all 6. Feeling bad about yourself - or that you are a failure or have let yourself or your family down: not at all 7. Trouble concentrating on things, such as reading the newspaper or watching television: not at all 8. Moving or speaking so slowly that other people could have noticed. Or the opposite - being so fidgety or restless that you have been moving around a lot more than usual: not at all 9. Thoughts that you would be better off or of hurting yourself in some way: not at all Total score: 0 Depression Screening Interpretation: Negative Depression Screening Done: Yes 46429 - PHQ-9 Billing: Yes Source: Developed by Drs. Garcia Ruth, Jess Charles, Benito Kennedy and colleagues, with an educational uziel from [employer]. CLAUDIA-7 AMB Questionnaire CLAUDIA-7 Date CLAUDIA - 7 assessed: 10/04/24 Feeling nervous, anxious, or on edge: 0 = Not at all Not being able to stop or control worryin = Not at all Worrying too much about different things: 0 = Not at all Trouble relaxin = Not at all Being so restless that it is hard to sit still: 0 = Not at all Becoming easily annoyed or irritable: 0 = Not at all Feeling afraid as if something awful might happen: 0 = Not at all Total CLAUDIA-7 score (0-4 normal; 5-9 mild; 10-14 moderate; 15-21 severe): 0 Source: Developed by Drs. Garcia Ruth, Benito Keller and colleagues, with an educational uziel from [employer]. CLAUDIA-7 Assessment Billing CLAUDIA-7 Assessment Tool: CLAUDIA-7 Assessment 42742 Physical Exam Vital Signs: Last Vital Signs Temp 97.9 F 10/04/24 11:07 Pulse 76 10/04/24 11:07 BP 110/70 10/04/24 11:07 Pulse Ox 97 10/04/24 11:07 BMI result Body Mass Index 27.0 Const General: healthy appearing and anxious Resp Other: moving air bilat, dim bilat Cardio Rate: regular rate Rhythm: regular rhythm Heart sounds: S1 normal heart sound present and S2 normal heart sound present Other: prostate did feel slightly enlarged, i did not palpate any nodules, smooth central groove noted Psych Appearance: well kempt Mental Status: mental status grossly normal Speech and movement: Normal speech and movement present and Clear speech present Thought content: Normal thought content present Insight: Good insight present (Psych) Judgement: Good judgement present (Psych) Assessment & Plan Assessment & Plan (1) Dyslipidemia: Code(s): E78.5 - Hyperlipidemia, unspecified (2) HTN (hypertension): Code(s): I10 - Essential (primary) hypertension (3) Screening PSA (prostate specific antigen): Code(s): Z12.5 - Encounter for screening for malignant neoplasm of prostate (4) Dribbling following urination: Code(s): N39.43 - Post-void dribbling (5) Incomplete bladder emptying: Code(s): R33.9 - Retention of urine, unspecified Plan . Orders: Orders Complete Blood Count Auto Diff Today E78.5 - Hyperlipidemia, unspecified, I10 - Essential (primary) hypertension Comprehensive [place]. Panel Fast Today E78.5 - Hyperlipidemia, unspecified, I10 - Essential (primary) hypertension TSH reflex Free T4 Today E78.5 - Hyperlipidemia, unspecified, I10 - Essential (primary) hypertension UA CC w/rflx Micro + Cult Today E78.5 - Hyperlipidemia, unspecified, I10 - Essential (primary) hypertension Lipid Panel Today E78.5 - Hyperlipidemia, unspecified, I10 - Essential (primary) hypertension Prostate Specific Antigen Scr Today Z12.5 - Encounter for screening for malignant neoplasm of prostate Referrals Urology Referral N39.43 - Post-void dribbling, R33.9 - Retention of urine, unspecified Quality Reporting (2019) Depression/Bipolar (159/160/161/177) PHQ-9: Total score: 0 Coding Level of Care Code Medicare First (G0438) Est Pt Level 3 (75111) Diagnoses Dyslipidemia E78.5 HTN (hypertension) I10 Screening PSA (prostate specific antigen) Z12.5 Dribbling following urination N39.43 Incomplete bladder emptying R33.9 Additional Codes CLAUDIA-7 Assessment Billing - CLAUDIA-7 Assessment Tool: CLAUDIA-7 Assessment 95769 ([id number]) PHQ-9 - 30993 - PHQ-9 Billing: Yes ([id number]) Advance Care Planning Forms completed: Health Care Proxy (pt getting signed by HCP), MOLST (done) and Living will (recommended have done)
[2024-10-04 11:07] VITALS: BP 110/70; PULSE 76; TEMP 36.6; O2SAT 97; BMI 27.0
--- OUTSIDE RECORDS SUMMARY | 2024-10-04 12:50 | XMS_ITS | Clinical Summary ---
Author Organization [facility] [address] [facility] Address [address] [place] [address] Phone Care Team Providers Care Government Instructor Name Role Phone Hernan Nesbitt MD Primary Care Provider Allergies Active Allergy Reactions Criticality Noted Date Comments Cat Dander 06/05/2024 Other 06/05/2024 Seasonal allergies Medications citalopram (CeleXA) 20 mg tablet Take 1 tablet (20 mg total) by mouth 1 (one) time each day. 4 Active lisinopriL (PRINIVIL,ZEST RIL) 20 mg tablet Take 1 tablet (20 mg total) by mouth 1 (one) time each day. 4 Active aspirin 81 mg EC tablet Take 1 tablet (81 mg total) by mouth 1 (one) time each day. Active cetirizine (ZyrTEC) 5 mg tablet Take 1 tablet (5 mg total) by mouth 1 (one) time each day. Active ascorbic acid (VITAMIN C) 500 mg CR capsule Take 1 capsule (500 mg total) by mouth 1 (one) time each day. Active cholecalcifero l (VITAMIN D-3) 25 mcg (1,000 unit) tablet Take 1 tablet (1,000 Units total) by mouth 1 (one) time each day. Active vitamin E, dl,tocopheryl acet, (vitamin E, dl, acetate,) 450 mg (1,000 unit) capsule Take 1 capsule (1,000 Units total) by mouth 1 (one) time each day. Active montelukast (SINGULAIR) 10 mg tablet Take 1 tablet (10 mg total) by mouth at bedtime. at bedtime. 90 tablet 1 4 Active vitamin E acetate (VITAMIN E ORAL) Take 180 mg by mouth 1 (one) time each day. Active albuterol 2.5 mg /3 mL (0.083 %) nebulizer solution Take 3 mL (2.5 mg total) by nebulization every 6 (six) hours if needed for wheezing. Active tamsulosin (FLOMAX) 0.4 mg 24 hr capsule Take 1 capsule (0.4 mg total) by mouth 1 (one) time each day. Capsules should be taken 30 minutes following the same meal each day. 90 each 1 5 026 Active amLODIPine (NORVASC) 5 mg tablet Take 1 tablet (5 mg total) by mouth 1 (one) time each day. 90 tablet 1 5 Active famotidine (PEPCID) 20 mg tablet Take 1 tablet (20 mg total) by mouth 2 (two) times a day. 180 tablet 1 5 Active atorvastatin (LIPITOR) 40 mg tablet Take 1 tablet (40 mg total) by mouth 1 (one) time each day. for 90 days 90 each 1 5 Active Wixela Inhub 250-50 mcg/dose diskus inhaler Inhale 1 puff by mouth 2 (two) times a day. 1 each 1 5 Active atorvastatin (LIPITOR) 40 mg tablet Take 1 tablet (40 mg total) by mouth 1 (one) time each day. for 90 days 4 025 Discontin ued(Reord er) Wixela Inhub 250-50 mcg/dose diskus inhaler Inhale 1 puff by mouth 2 (two) times a day. 4 025 Discontin ued(Reord er) Surgical History Surgery Date Site/Laterality Comments OTHER SURGICAL HISTORY Left Inguainal hernia repair OTHER SURGICAL HISTORY Right wedge resection of right lung for carcinoid 2006 OTHER SURGICAL HISTORY Left Hand surgery Medical History Medical History Date Comments Hypertension CAD (coronary artery disease) COPD (chronic obstructive pulmonary disease) (CM S/HCC) Hyperlipidemia Anxiety and depression Family History Medical History Relation Name Comments Coronary artery disease Mother Breast cancer Other Aunt Diabetes Neg Hx Relation Name Status Comments Mother Other Aunt Social History Tobacco Use Types Packs/Day Years Used Date Smoking Tobacco: Former Cigarettes Smokeless Tobacco: Never Comments:Quit 1974 Alcohol Use Standard Drinks/Week Comments Never 0 (1 standard drink = 0.6 oz pur e alcohol) Sex and Gender Information Value Date Recorded Sex Assigned at Not on file Legal Sex Male 11:06 AM EDT Gender Identity Not on file Sexual Orientation Not on file Obstetrics History Last Filed Vital Signs Vital Sign Reading Time Taken Comments Blood Pressure 130/60 06/05/2024 2:54 PM EST Pulse 74 06/05/2024 2:54 PM EST Temperature 36.2 ??C (97.2 ??F) 06/05/2024 2:54 PM ES T Respiratory Rate - - Oxygen Saturation - - Inhaled Oxygen Concentration - - Weight 84.2 kg (185 lb 9.6 oz) 06/05/2024 2:54 P M EST Height 175.3 cm (5' 9 ) 06/05/2024 2:54 PM EST Body Mass Index 27.41 06/05/2024 2:54 PM EST Plan of Treatment Upcoming Encounters Date Type Department Care Team (Late st Contact Info) Description 11/07/2024 8:00 AM EDT Office Visit Adult Medicine [address] [phone] Hernan Nesbitt MD [address] [place] [id number] Health Maintenance Due Date Last Done Comments Zoster Vaccines (2 of 3) 10/03/2012 08/08/2012 Pneumococcal Vaccine: 50+ Years (3 of 3 - PCV20 or PCV21) 05/05/2022 05/05/2017, 07/25/2007 RSV Immunization Patients 60+ Years Old (1 - 1-dose 75+ series) 12/09/2022 Depression Screening 02/24/2024 Falls Risk Assessment 02/24/2024 Hepatitis C Screening 02/24/2024 Medicare Annual Wellness Visit 02/24/2024 Social Influencers of Health Screening 02/24/2024 COVID-19 Vaccine ( season) 2024 07/30/2021, 11/25/2020, 10/28/2020 Influenza Vaccine (#1) 2024 2, 05/17/2019, 04/12/2018, Additional history exists Hypertension/CHF/CAD Annual BMP Blood Test 07/10/2025 07/10/2024 DTaP,Tdap,and Td Vaccines (2 - Td or Tdap) 05/02/2027 05/02/2017 Cholesterol Screening (Lipid Panel) 07/10/2029 07/10/2024 HIB Vaccines Aged Out No longer eligi ble based on patient's age to complete this topic HPV Vaccines Aged Out No longer eligi ble based on patient's age to complete this topic Hepatitis A Vaccines Aged Out No long er eligible based on patient's age to complete this topic Hepatitis B Vaccines Aged Out No long er eligible based on patient's age to complete this topic IPV Vaccines Aged Out No longer eligi ble based on patient's age to complete this topic MMR Vaccines Aged Out No longer eligi ble based on patient's age to complete this topic Meningococcal ACWY Vaccine Aged Out N o longer eligible based on patient's age to complete this topic Meningococcal B Vacine Aged Out No lo nger eligible based on patient's age to complete this topic RSV Immunization Patients Under 20 months Aged Out No longer eligible based on patient's age to complete this topic Varicella Vaccines Aged Out No longer eligible based on patient's age to complete this topic Procedures Procedure Name Priority Date/Time Associated Diagnosis Comments CBC WITH AUTO DIFFERENTIAL Routine 07/10/2024 9:45 AM EST Primary hypertension Coronary artery disease involving [place] coronary artery of [place] heart without angina pectoris Mixed hyperlipidemia Chronic obstructive pulmonary disease, unspecified COPD type (CMS/HCC) Benign prostatic hyperplasia with urinary hesitancy Gastroesophageal reflux disease without esophagitis Anxiety and depression Screening for prostate cancer Screening for diabetes mellitus Screening for deficiency anemia HEMOGLOBIN A1C Routine 07/10/2024 9:45 AM EST Primary hypertension Coronary artery disease involving [place] coronary artery of [place] heart without angina pectoris Mixed hyperlipidemia Chronic obstructive pulmonary disease, unspecified COPD type (CMS/HCC) Benign prostatic hyperplasia with urinary hesitancy Gastroesophageal reflux disease without esophagitis Anxiety and depression Screening for prostate cancer Screening for diabetes mellitus Screening for deficiency anemia CBC AND DIFFERENTIAL Routine 07/10/2024 9:45 AM EST Primary hypertension Coronary artery disease involving [place] coronary artery of [place] heart without angina pectoris Mixed hyperlipidemia Chronic obstructive pulmonary disease, unspecified COPD type (CMS/HCC) Benign prostatic hyperplasia with urinary hesitancy Gastroesophageal reflux disease without esophagitis Anxiety and depression Screening for prostate cancer Screening for diabetes mellitus Screening for deficiency anemia COMPREHENSIVE METABOLIC PANEL Routine 07/10/2024 9:45 AM EST Primary hypertension Coronary artery disease involving [place] coronary artery of [place] heart without angina pectoris Mixed hyperlipidemia Chronic obstructive pulmonary disease, unspecified COPD type (CMS/HCC) Benign prostatic hyperplasia with urinary hesitancy Gastroesophageal reflux disease without esophagitis Anxiety and depression Screening for prostate cancer Screening for diabetes mellitus Screening for deficiency anemia PROSTATE SPECIFIC ANTIGEN SCREEN Routine 07/10/2024 9:45 AM EST Primary hypertension Coronary artery disease involving [place] coronary artery of [place] heart without angina pectoris Mixed hyperlipidemia Chronic obstructive pulmonary disease, unspecified COPD type (CMS/HCC) Benign prostatic hyperplasia with urinary hesitancy Gastroesophageal reflux disease without esophagitis Anxiety and depression Screening for prostate cancer Screening for diabetes mellitus Screening for deficiency anemia LIPID PANEL WITH REFLEX TO DIRECT LDL Routine 07/10/2024 9:45 AM EST Primary hypertension Coronary artery disease involving [place] coronary artery of [place] heart without angina pectoris Mixed hyperlipidemia Chronic obstructive pulmonary disease, unspecified COPD type (CMS/HCC) Benign prostatic hyperplasia with urinary hesitancy Gastroesophageal reflux disease without esophagitis Anxiety and depression Screening for prostate cancer Screening for diabetes mellitus Screening for deficiency anemia from Last 3 Months Results * Prostate specific antigen screen (07/10/2024 9:45 AM EST) [facility] Signature PSA 1.16 0.00 - 4.00 ng/mL LAB CHEMISTRY METHOD 07/10/2024 12:15 PM EST [facility] Blood Venous blood specimen / Unknown Venipuncture / Unknown 07/10/2024 9:45 AM EST 07/10/2024 9:45 AM EST Narrative [facility] - 07/10/2024 12:15 PM EST The Siemens Advia Centaur Chemiluminescent Immunoassay is used. Results obtained with different assay methods or kits cannot be used interchangeably. Results cannot be interpreted as absolute evidence of the presence or absence of malignant disease. Hernan Nesbitt MD LAB BLOOD ORDERABLES Final Result Performing Organization Address City/[facility]/ZIP Co de Phone Number [facility] [address] [place] [address], [place] [phone] * Lipid panel with reflex to direct LDL (07/10/2024 9:45 AM EST) [facility] Cholesterol 141 0 - 200 mg/dL LAB CHEMISTRY METHOD 07/10/2024 12:10 PM EST [facility] Triglycerides 50 0 - 150 mg/dL LAB CHEMISTRY METHOD 07/10/2024 12:10 PM EST [facility] HDL 76 >=40 mg/dL LAB CHEMISTRY METHOD 07/10/2024 12:10 PM EST [facility] LDL Calculated 55 0 - 100 mg/dL LAB CHEMISTRY METHOD 07/10/2024 12:10 PM EST [facility] VLDL Cholesterol Sanjay 10 mg/dL LAB CHEMISTRY METHOD 07/10/2024 12:10 PM EST [facility] Non HDL Chol. (LDL+VLDL) 65 <145 mg/dL LAB CHEMISTRY METHOD 07/10/2024 12:10 PM EST [facility] Chol/HDL Ratio 1.9 0.0 - 4.4 LAB CHEMISTRY METHOD 07/10/2024 12:10 PM [facility] Blood Venous blood specimen / Unknown Venipuncture / Unknown 07/10/2024 9:45 AM EST 07/10/2024 9:45 AM EST Hernan Nesbitt MD LAB BLOOD ORDERABLES Final Result Performing Organization Address [facility]/ZIP Co de Phone Number [facility] [address] [place] [address], [place] [phone] * (ABNORMAL) CBC auto differential (07/10/2024 9:45 AM EST) [facility] WBC 6.3 4.8 - 10.8 K/mcL LAB HEMETOLOGY METHOD 07/10/2024 11:57 AM [facility] RBC 4.80 4.50 - 5.50 M/mcL LAB HEMETOLOGY METHOD 07/10/2024 11:57 AM [facility] Hemoglobin 13.6 13.5 - 17.5 g/dL LAB HEMETOLOGY METHOD 07/10/2024 11:57 AM [facility] Hematocrit 42.8 42.0 - 54.0 % LAB HEMETOLOGY METHOD 07/10/2024 11:57 AM [facility] MCV 89.9 79.0 - 98.0 FL LAB HEMETOLOGY METHOD 07/10/2024 11:57 AM [facility] MCH 28.6 27.0 - 32.0 pcg LAB HEMETOLOGY METHOD 07/10/2024 11:57 AM [facility] MCHC 31.8(L) 32.0 - 37.0 g/dL LAB HEMETOLOGY METHOD 07/10/2024 11:57 AM [facility] RDW 13.0 11.0 - 15.0 % LAB HEMETOLOGY METHOD 07/10/2024 11:57 AM [facility] Platelets 215 130 - 400 K/mcL LAB HEMETOLOGY METHOD 07/10/2024 11:57 AM [facility] MPV 9.5 7.0 - 11.0 FL LAB HEMETOLOGY METHOD 07/10/2024 11:57 AM [facility] NRBC 0.0 <1.0 % LAB HEMETOLOGY METHOD 07/10/2024 11:57 AM [facility] NRBC Absolute 0.00 <0.10 K/mcL LAB HEMETOLOGY METHOD 07/10/2024 11:57 AM [facility] Neutrophils Relative 58.7 % LAB HEMETOLOGY METHOD 07/10/2024 11:57 AM [facility] Lymphocytes Relative 25.6 % LAB HEMETOLOGY METHOD 07/10/2024 11:57 AM [facility] Monocytes Relative 11.5 % LAB HEMETOLOGY METHOD 07/10/2024 11:57 AM [facility] Eosinophils Relative 3.4 % LAB HEMETOLOGY METHOD 07/10/2024 11:57 AM [facility] Basophils Relative 0.6 % LAB HEMETOLOGY METHOD 07/10/2024 11:57 AM [facility] Immature Granulocytes Relative 0.2 % LAB HEMETOLOGY METHOD 07/10/2024 11:57 AM [facility] Neutrophils Absolute 3.67 1.50 - 7.00 K/mcL LAB HEMETOLOGY METHOD 07/10/2024 11:57 AM [facility] Lymphocytes Absolute 1.60 1.00 - 5.00 K/mcL LAB HEMETOLOGY METHOD 07/10/2024 11:57 AM [facility] Monocytes Absolute 0.72 0.20 - 1.00 K/mcL LAB HEMETOLOGY METHOD 07/10/2024 11:57 AM [facility] Eosinophils Absolute 0.21 0.00 - 0.50 K/mcL LAB HEMETOLOGY METHOD 07/10/2024 11:57 AM [facility] Basophils Absolute 0.04 0.00 - 0.20 K/mcL LAB HEMETOLOGY METHOD 07/10/2024 11:57 AM [facility] Immature Granulocytes Absolute 0.01 0.00 - 0.03 K/mcL LAB HEMETOLOGY METHOD 07/10/2024 11:57 AM [facility] Blood Venous blood specimen / Unknown Venipuncture / Unknown 07/10/2024 9:45 AM EST 07/10/2024 9:45 AM EST Hernan Nesbitt MD LAB BLOOD ORDERABLES Final Result [facility] [address] [place] [address], [place] [phone] * Hemoglobin A1c (07/10/2024 9:45 AM EST) Pathologist [facility] Hemoglobin A1C 5.7 <6.5 % LAB CHEMISTRY METHOD 07/10/2024 7:01 PM EST [facility] Mean Bld Glu Estim. 117 mg/dL LAB CHEMISTRY METHOD 07/10/2024 7:01 PM [facility] Blood Venous blood specimen / Unknown Venipuncture / Unknown 07/10/2024 9:45 AM EST 07/10/2024 9:45 AM EST Hernan Nesbitt MD LAB BLOOD ORDERABLES Final Result [facility] [address] [place] [address], [place] [phone] * (ABNORMAL) Comprehensive metabolic panel (07/10/2024 9:45 AM EST) [facility] Sodium 140 133 - 145 mmol/L LAB CHEMISTRY METHOD 07/10/2024 12:09 PM [facility] Potassium 4.3 3.5 - 5.5 mmol/L LAB CHEMISTRY METHOD 07/10/2024 12:09 PM [facility] Chloride 106 96 - 110 mmol/L LAB CHEMISTRY METHOD 07/10/2024 12:09 PM [facility] CO2 27 21 - 32 mmol/L LAB CHEMISTRY METHOD 07/10/2024 12:09 PM [facility] Anion Gap 7 3 - 11 LAB CHEMISTRY METHOD 07/10/2024 12:09 PM [facility] Glucose 111(H) 70 - 100 mg/dL LAB CHEMISTRY METHOD 07/10/2024 12:09 PM [facility] BUN 11 5 - 25 mg/dL LAB CHEMISTRY METHOD 07/10/2024 12:09 PM [facility] Creatinine 1.07 0.70 - 1.30 mg/dL LAB CHEMISTRY METHOD 07/10/2024 12:09 PM [facility] eGFR 72 >=60 mL/min/1. 73m2 LAB CHEMISTRY METHOD 07/10/2024 12:09 PM [facility] Comment:Calculation based on the??Chronic Kidney Disease Epidemiology Collaboration (CKD-EPI) equation refit??without adjustment for race. BUN/Creatinine Ratio 10.3 LAB CHEMISTRY METHOD 07/10/2024 12:09 PM [facility] Calcium 9.4 8.5 - 10.5 mg/dL LAB CHEMISTRY METHOD 07/10/2024 12:09 PM [facility] AST (SGOT) 38 10 - 42 unit/L LAB CHEMISTRY METHOD 07/10/2024 12:09 PM [facility] ALT (SGPT) 56 10 - 60 unit/L LAB CHEMISTRY METHOD 07/10/2024 12:09 PM [facility] Alkaline Phosphatase 94 42 - 121 unit/L LAB CHEMISTRY METHOD 07/10/2024 12:09 PM [facility] Total Protein 7.0 6.0 - 8.0 g/dL LAB CHEMISTRY METHOD 07/10/2024 12:09 PM [facility] Albumin 4.0 3.2 - 5.0 g/dL LAB CHEMISTRY METHOD 07/10/2024 12:09 PM [facility] Total Bilirubin 0.7 0.0 - 1.4 mg/dL LAB CHEMISTRY METHOD 07/10/2024 12:09 PM [facility] Blood Venous blood specimen / Unknown Venipuncture / Unknown 07/10/2024 9:45 AM EST 07/10/2024 9:45 AM EST Hernan Nesbitt MD LAB BLOOD ORDERABLES Final Result [facility] ([facility]) [facility] [address] [place] [address], from Last 3 Months Insurance MEDICARE Care Teams Government Instructor Relationship Specialty Start Date End Date Hernan Nesbitt MD [address] [place] [id number] PCP - General Internal Medicine 04/26/24
== END 2024-10-04 11:50 | disposition home or self-care (01) ==
LOC: HO.HMCC 10:20
PROVIDERS: PCP Nurse Practitioner Family; Visit Provider Nurse Practitioner Family
DX: Z00.00 Encounter for general adult medical examination without abnormal findings (principal); R33.9 Retention of urine, unspecified; E78.5 Hyperlipidemia, unspecified; I10 Essential (primary) hypertension; Z12.5 Encounter for screening for malignant neoplasm of prostate; N39.43 Post-void dribbling

== ENCOUNTER → 2024-10-04 10:19 | Outpatient (BNVA) | payer MEDICARE, OTHER, SELFPAY | PROVIDERS: PCP Nurse Practitioner Family; Visit Provider Nurse Practitioner Family | DX: Z00.00 Encounter for general adult medical examination without abnormal findings (principal); E78.5 Hyperlipidemia, unspecified; I10 Essential (primary) hypertension; N39.43 Post-void dribbling; R33.9 Retention of urine, unspecified | CPT/HCPCS: 96127; 99212 ==

== ENCOUNTER 2024-10-30 08:30 | Outpatient (REF) | payer MEDICARE, OTHER, SELFPAY ==
--- OUTSIDE RECORDS SUMMARY | 2024-10-30 08:51 | XMS_ITS | Clinical Summary ---
Author Organization [facility] [address] [facility] Address [address] [place] [address] Phone Care Team Providers Care Cra Officer Name Role Phone Hernan Nesbitt MD Primary Care Provider Allergies Active Allergy Reactions Criticality Noted Date Comments Cat Dander 06/05/2024 Other 06/05/2024 Seasonal allergies Medications citalopram (CeleXA) 20 mg tablet Take 1 tablet (20 mg total) by mouth 1 (one) time each day. 4 Active lisinopriL (PRINIVIL,ZESTR [place]) 20 mg tablet Take 1 tablet (20 [...] mouth 1 (one) time each day. Active cholecalciferol (VITAMIN D-3) 25 mcg (1,000 unit) tablet [...] the same meal each day. 90 each 5 08/21/19 26 Active amLODIPine (NORVASC) 5 mg tablet Take [...] a day. 1 each 1 5 Active Surgical History Surgery Date Site/Laterality Comments OTHER [...] 8:00 AM EDT Office Visit Adult Medicine [address] [phone] Hernan Nesbitt MD [address] [place] [address] Health Maintenance Due Date Last Done Comments Zoster Vaccines (2 of 3) 10/03/2012 08/08/2012 Pneumococcal Vaccine: 50+ Years (3 of 3 - PCV20 or PCV21) 05/05/2022 05/05/2017, 07/25/2007 RSV Immunization Adult Patients (1 - 1-dose 75+ series) 12/09/2022 Depression Screening 02/24/2024 Falls Risk Assessment 02/24/2024 Hepatitis C Screening 02/24/2024 Medicare Annual Wellness Visit 02/24/2024 Social Influencers of Health Screening 02/24/2024 COVID-19 Vaccine ( season) 2024 07/30/2021, 11/25/2020, 10/28/2020 Influenza Vaccine (Season Ended) 2025 07/30/2021, 05/17/2019, 04/12/2018, Additional history exists Hypertension/CHF/CAD Annual [...] age to complete this topic Meningococcal B Vaccine Aged Out No l onger eligible based on patient's age to complete this topic RSV Immunization Patients Under 20 months Aged Out No longer eligible based on patient's age to complete this topic Varicella Vaccines Aged Out No longer eligible based on patient's age to complete this topic Procedures Procedure Name Priority Date/Time Associated Diagnosis Comments COMPREHENSIVE METABOLIC PANEL Routine 07/10/2024 9:45 AM EST Primary hypertension Coronary artery disease involving [place] coronary artery of [place] heart without angina pectoris Mixed hyperlipidemia Chronic obstructive pulmonary disease, unspecified COPD type (CMS/HCC) Benign prostatic hyperplasia with urinary hesitancy Gastroesophageal reflux disease without esophagitis Anxiety and depression Screening for prostate cancer Screening for diabetes mellitus Screening for deficiency anemia LIPID PANEL WITH REFLEX TO DIRECT LDL Routine 07/10/2024 9:45 AM EST Primary hypertension Coronary artery disease involving [place] coronary artery of [place] heart without angina pectoris Mixed hyperlipidemia Chronic obstructive pulmonary disease, unspecified COPD type (CMS/HCC) Benign prostatic hyperplasia with urinary hesitancy Gastroesophageal reflux disease without esophagitis Anxiety and depression Screening for prostate cancer Screening for diabetes mellitus Screening for deficiency anemia from Last 3 Months or Most Recently Relevant to Health Maintenance Results * Lipid panel with reflex to direct LDL (07/10/2024 9:45 AM EST) Cholesterol 141 0 - 200 mg/dL LAB CHEMISTRY METHOD 07/10/2024 12:10 PM EST [facility] Triglycerides 50 0 - 150 mg/dL LAB CHEMISTRY METHOD 07/10/2024 12:10 PM EST [facility] HDL 76 >=40 mg/dL LAB CHEMISTRY METHOD 07/10/2024 12:10 PM [facility] LDL Calculated 55 0 - 100 mg/dL LAB CHEMISTRY METHOD 07/10/2024 12:10 PM [facility] VLDL Cholesterol Sanjay 10 mg/dL LAB CHEMISTRY METHOD 07/10/2024 12:10 PM [facility] Non HDL Chol. (LDL+VLDL) 65 <145 mg/dL LAB CHEMISTRY METHOD 07/10/2024 12:10 PM [facility] Chol/HDL Ratio 1.9 0.0 - 4.4 LAB CHEMISTRY METHOD 07/10/2024 12:10 PM [facility] Blood Venous blood specimen / Unknown Venipuncture / Unknown 07/10/2024 9:45 AM EST 07/10/2024 9:45 AM EST us Hernan Nesbitt MD LAB BLOOD ORDERABLES Final Result [facility] [address] [place] [address], * (ABNORMAL) Comprehensive metabolic panel (07/10/2024 9:45 AM EST) Sodium 140 133 - 145 mmol/L LAB CHEMISTRY METHOD 07/10/2024 12:09 PM [facility] Potassium 4.3 3.5 - 5.5 mmol/L LAB CHEMISTRY METHOD 07/10/2024 12:09 PM [facility] Chloride 106 96 - 110 mmol/L LAB CHEMISTRY METHOD 07/10/2024 12:09 PM [facility] CO2 27 21 - 32 mmol/L LAB CHEMISTRY METHOD 07/10/2024 12:09 PM [facility] Anion Gap 7 3 - 11 LAB CHEMISTRY METHOD 07/10/2024 12:09 PM [facility] Glucose 111(H) 70 - 100 mg/dL LAB CHEMISTRY METHOD 07/10/2024 12:09 PM [facility] BUN 11 5 - 25 mg/dL LAB CHEMISTRY METHOD 07/10/2024 12:09 PM [facility] Creatinine 1.07 0.70 - 1.30 mg/dL LAB CHEMISTRY METHOD 07/10/2024 12:09 PM [facility] eGFR 72 >=60 mL/min/1. 73m2 LAB CHEMISTRY METHOD 07/10/2024 12:09 PM [facility] Comment:Calculation based on the??Chronic Kidney Disease Epidemiology Collaboration (CKD-EPI) equation refit??without adjustment for race. BUN/Creatinine Ratio 10.3 LAB CHEMISTRY METHOD 07/10/2024 12:09 PM [facility] Calcium 9.4 8.5 - 10.5 mg/dL LAB CHEMISTRY METHOD 07/10/2024 12:09 PM [facility] AST (SGOT) 38 10 - 42 unit/L LAB CHEMISTRY METHOD 07/10/2024 12:09 PM [facility] ALT (SGPT) 56 10 - 60 unit/L LAB CHEMISTRY METHOD 07/10/2024 12:09 PM [facility] Alkaline Phosphatase 94 42 - 121 unit/L LAB CHEMISTRY METHOD 07/10/2024 12:09 PM [facility] Total Protein 7.0 6.0 - 8.0 g/dL LAB CHEMISTRY METHOD 07/10/2024 12:09 PM [facility] Albumin 4.0 3.2 - 5.0 g/dL LAB CHEMISTRY METHOD 07/10/2024 12:09 PM [facility] Total Bilirubin 0.7 0.0 - 1.4 mg/dL LAB CHEMISTRY METHOD 07/10/2024 12:09 PM [facility] Blood Venous blood specimen / Unknown Venipuncture / Unknown 07/10/2024 9:45 AM EST 07/10/2024 9:45 AM EST us Hernan Nesbitt MD LAB BLOOD ORDERABLES Final Result [facility] [place] ([facility]) [facility] [address] [place] [address], [place] [phone] from Last 3 Months or Most Recently Relevant to Health Maintenance Insurance MEDICARE Care Teams Cra Officer Relationship Specialty Start Date End Date Hernan Nesbitt MD [address] [place] [phone] PCP - General Internal Medicine 04/26/24
[2024-10-30 09:59] LABS: MANUAL DIFF FLAG NO
[2024-10-30 10:07] LABS: Basophils Percent Auto 0.8 % (0-2); Eosinophils Absolute Auto 0.2 X10*3/uL (0.0-0.4); Eosinophils Percent Auto 4.4 % (0-4); Hematocrit 45.3 % (42.0-52.0); Hemoglobin 14.5 g/dl (14.0-18.0); Imm Gran Abs Auto 0.01 X10*3/uL (0.00-0.03); Imm Gran Pct Auto 0.2 % (0.0-0.4); Lymphocytes Absolute Auto 1.6 X10*3/uL (1.2-4.9); Lymphocytes Percent Auto 31.7 % (20-40); Mean Corpuscular Hemoglobin 28.2 pg (27.0-33.0); Mean Platelet Volume 9.2 fL (9.4-12.4); Monocytes Absolute Auto 0.8 X10*3/uL (0.1-1.2); Monocytes Percent Auto 14.5 % (2-11); Neutrophils Absolute Auto 2.5 x10*3/uL (2.0-8.3); Neutrophils Percent Auto 48.4 % (45-73); Platelet Count 219 X10*3/uL (160-400); Red Blood Count 5.15 X10*6/uL (4.60-5.80); Red Cell Distribution Width 13.3 % (11.0-16.0); White Blood Count 5.2 X10*3/uL (4.8-10.8)
[2024-10-30 10:09] LABS: Appearance Urine Clear; Color Urine Yellow; Glucose Urine UA Negative (Negative); Leukocyte Esterase Urine Trace (Negative); Nitrite Urine Negative (Negative); Specific Gravity - Urine 1.025 (1.005-1.025); UMIC TRIGGER UACC YES; Urine Blood Negative (Negative); Urine Ketones Negative (Negative); Urine Protein Negative (Neg-Trace)
[2024-10-30 10:27] LABS: Alanine Aminotransferase 34 U/L (0-40); Albumin Level 4.4 g/dL (3.5-5.0); Alkaline Phosphatase 85 U/L (39-117); Anion Gap 10 (12-20); Aspartate Amino Transferase 41 U/L (5-37); Bilirubin Total 0.7 mg/dL (0.0-1.0); Blood Urea Nitrogen 16 mg/dL (9-16); Calcium 9.5 mg/dL (8.4-10.2); Carbon Dioxide 27 mmol/L (22-29); Chloride 109 mmol/L (96-108); Cholesterol 136 mg/dL (<200); Estimated Glomerular Filt Rate > 60; Glucose Fasting 101 mg/dL (60-99); HDL Cholesterol 57 mg/dL (>40); LDL Cholesterol Calculated 64 mg/dL (<100); Potassium 4.1 mmol/L (3.3-5.1); Sodium 142 mmol/L (135-145); Total Protein 7.1 g/dL (6.5-8.0); Triglycerides 75 mg/dL (<150)
[2024-10-30 10:31] LABS: Bacteria Urine None Seen (None Seen); RBC Urine 0-2 /HPF (0-2); Squamous Epithelial Cell Urine 0-2 /HPF (0-2); UACC Culture Trigger YES
[2024-10-30 10:48] LABS: TSH reflex Free T4 0.97 uIU/mL (0.32-4.0)
[2024-10-30 11:20] LABS: Prostate Specific Antigen Scr 1.33 ng/mL (<0.05-4.0)
== END 2024-10-30 08:31 | disposition home or self-care (01) ==
LOC: HO.HMGCLDS 08:30
PROVIDERS: PCP Nurse Practitioner Family; Visit Provider Nurse Practitioner Family
DX: E78.5 Hyperlipidemia, unspecified (principal); I10 Essential (primary) hypertension; Z12.5 Encounter for screening for malignant neoplasm of prostate
CPT/HCPCS: 36415; 80053; 80061; 81001; 84153; 84443; 85025; 87086

== ENCOUNTER 2024-11-15 10:09 | Outpatient (REF) | payer MEDICARE, OTHER, SELFPAY ==
--- NOTE | ~2024-11-15 | XR_ITS ---
EXAMINATION: XR RIBS, RIGHT CLINICAL INFORMATION: R06.02 - Shortness of breath COMPARISON: August 03, 2018. TECHNIQUE: 3 views of the right ribs were obtained. FINDINGS: There is a cortical deformity in the posterior lateral aspect of the right fifth rib. No gross pneumothorax. No gross pleural effusion. Pulmonary reticular pattern. 5 mm opacity with questionable calcifications in the left lung. Cardiomediastinal silhouette size is normal. Calcified plaque thoracic aorta. Multilevel thoracolumbar spondylosis. Vascular clips in the inferior right pulmonary hilum. XR/XR ribs RT min 3V w CXR1V IMPRESSION: Acute to subacute fracture, posterior lateral right fifth rib. No gross pneumothorax. Stable appearance of the lungs. Electronically signed by: Severiano Platt MD 11/15/2024 11:25 AM EDT
--- OUTSIDE RECORDS SUMMARY | 2024-11-15 13:03 | XMS_ITS | Clinical Summary ---
Author Organization [facility] [address] [facility] Address [address] [place] [address] Phone Care Team Providers Care Laborer [employer] Name Role Phone Hernan Nesbitt MD Primary Care Provider [phone] Allergies Active Allergy Reactions Criticality Noted Date [...] EST Primary hypertension Coronary artery disease involving koi coronary artery of koi heart without angina pectoris Mixed hyperlipidemia Chronic obstructive pulmonary disease, unspecified COPD type (CMS/HCC V24, CMS/HCC V28) Benign prostatic hyperplasia with urinary hesitancy Gastroesophageal reflux disease without esophagitis Anxiety and depression Screening for prostate cancer Screening for diabetes mellitus Screening for deficiency anemia LIPID PANEL WITH REFLEX TO DIRECT LDL Routine 07/10/2024 9:45 AM EST Primary hypertension Coronary artery disease involving koi coronary artery of koi heart without angina pectoris Mixed hyperlipidemia Chronic [...] LAB CHEMISTRY METHOD 07/10/2024 12:10 PM EST [facility] Triglycerides 50 0 - 150 mg/dL LAB CHEMISTRY METHOD 07/10/2024 12:10 PM EST [facility] HDL 76 >=40 mg/dL LAB CHEMISTRY METHOD 07/10/2024 12:10 PM [facility] LDL Calculated 55 0 - 100 mg/dL LAB CHEMISTRY METHOD 07/10/2024 12:10 PM EST [facility] VLDL Cholesterol Sanjay 10 mg/dL LAB CHEMISTRY METHOD 07/10/2024 12:10 PM [facility] Non HDL Chol. (LDL+VLDL) 65 <145 mg/dL LAB CHEMISTRY METHOD 07/10/2024 12:10 PM [facility] Chol/HDL Ratio 1.9 0.0 - 4.4 LAB CHEMISTRY METHOD 07/10/2024 12:10 PM [facility] Blood Venous blood specimen / Unknown Venipuncture / Unknown 07/10/2024 9:45 AM EST 07/10/2024 9:45 AM EST us Hernan Nesbitt MD LAB BLOOD ORDERABLES Final Result [facility] [address] [place] [address], [place] [phone] * (ABNORMAL) Comprehensive metabolic panel (07/10/2024 9:45 AM EST) Sodium 140 133 - 145 mmol/L LAB CHEMISTRY METHOD 07/10/2024 12:09 PM [facility] Potassium 4.3 3.5 - 5.5 mmol/L LAB CHEMISTRY METHOD 07/10/2024 12:09 PM [facility] Chloride 106 96 - 110 mmol/L LAB CHEMISTRY METHOD 07/10/2024 12:09 PM [facility] CO2 27 21 - 32 mmol/L LAB CHEMISTRY METHOD 07/10/2024 12:09 PM [facility] Anion Gap 7 3 - 11 LAB CHEMISTRY METHOD 07/10/2024 12:09 PM [facility] Glucose 111(H) 70 - 100 mg/dL LAB CHEMISTRY METHOD 07/10/2024 12:09 PM [facility] BUN 11 5 - 25 mg/dL LAB CHEMISTRY METHOD 07/10/2024 12:09 PM [facility] Creatinine 1.07 0.70 - 1.30 mg/dL LAB CHEMISTRY METHOD 07/10/2024 12:09 PM [facility] eGFR 72 >=60 mL/min/1. 73m2 LAB CHEMISTRY METHOD 07/10/2024 12:09 PM [facility] Comment:Calculation based on the??Chronic Kidney Disease Epidemiology Collaboration (CKD-EPI) equation refit??without adjustment for race. BUN/Creatinine Ratio 10.3 LAB CHEMISTRY METHOD 07/10/2024 12:09 PM [facility] Calcium 9.4 8.5 - 10.5 mg/dL LAB CHEMISTRY METHOD 07/10/2024 12:09 PM [facility] AST (SGOT) 38 10 - 42 unit/L LAB CHEMISTRY METHOD 07/10/2024 12:09 PM [facility] ALT (SGPT) 56 10 - 60 unit/L LAB CHEMISTRY METHOD 07/10/2024 12:09 PM [facility] Alkaline Phosphatase 94 42 - 121 unit/L LAB CHEMISTRY METHOD 07/10/2024 12:09 PM [facility] Total Protein 7.0 6.0 - 8.0 g/dL LAB CHEMISTRY METHOD 07/10/2024 12:09 PM [facility] Albumin 4.0 3.2 - 5.0 g/dL LAB CHEMISTRY METHOD 07/10/2024 12:09 PM [facility] Total Bilirubin 0.7 0.0 - 1.4 mg/dL LAB CHEMISTRY METHOD 07/10/2024 12:09 PM [facility] Blood Venous blood specimen / Unknown Venipuncture / Unknown 07/10/2024 9:45 AM EST 07/10/2024 9:45 AM EST us Hernan Nesbitt MD LAB BLOOD ORDERABLES Final Result [facility] [address] [place], [place] [address] [phone] from Last 3 Months or Most Recently Relevant to Health Maintenance Insurance [address] [facility] [address] MEDICARE Care Teams Laborer [employer] Relationship Specialty Start Date End Date Hernan Nesbitt MD [address] [place] [phone] PCP - General Internal Medicine 04/26/24
== END 2024-11-15 10:10 | disposition home or self-care (01) ==
LOC: HO.HMGCX 10:09
PROVIDERS: PCP Nurse Practitioner Family; Visit Provider Nurse Practitioner Family
DX: R06.02 Shortness of breath (principal)
CPT/HCPCS: 71101; 99212

== ENCOUNTER 2024-11-15 10:09 | Outpatient (AMB) | payer MEDICARE, OTHER, SELFPAY ==
--- NOTE | 2024-11-15 10:31 | MHC.OFFWIV ---
Intake Vital Signs 11/15/24 10:32 Weight 183 lb BP 108/62 Blood Pressure Location Rt brachial Position Sitting Pulse 69 Pulse Source Pulse Oximeter Pulse Oximetry (%) 95 Oxygen Delivery Method Room Air Intake Visit Reasons: EP ?Rib fracture, diff breathing Intake Note: Patient here for possible rib fracture, difficulty breathing and very painful. he states he is unsure of how it truly happened. Patient Tobacco Use Status: Former Tobacco user Allergies cat dander Allergy (Severe, Verified 11/15/24 10:33) Unknown Do you need a note to return to daycare/school/sports/work: No HPI HPI Comments History of Present Illness Details 78 y/o Male patient who presents to the walk in clinic with c/o Right sided chest wall pain associated with SOB. Reports that he thinks a Large Pot of flower might Hit his chest when he went to move it from the table, but he is not sure if it did Hit the chest. H/o Lung Cancer, had Lung Surgery 1999. H/O COPD and currently managed by Dr. Crenshaw (Pulmonology). [facility] Medical History (Updated 11/15/24 @ 12:22 by Daniel Mejia, [facility]) SOB (shortness of breath) Allergic rhinitis Asthma Ectopic cardiac beats Lung cancer Leukopenia CAD (coronary artery disease) Trigger finger GERD (gastroesophageal reflux disease) HTN (hypertension) COPD (chronic obstructive pulmonary disease) Surgical History Hx of left knee surgery Hx of colonoscopy Hx of hand surgery History of umbilical hernia repair Family History Father Medical history non-contributory Unknown family medical history Mother CVD (cardiovascular disease) Brother No problems noted. Son No problems noted. 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 Current occupational exposures/hazards: No Cognitive needs: No Hearing needs: No Vision needs: No Review of Systems Const All systems reviewed & are unremarkable except as noted in HPI and below Physical Exam Vital Signs: Last Vital Signs Pulse 69 04/24/25 10:32 BP 108/62 11/15/24 10:32 Pulse Ox 95 11/15/24 10:32 Oxygen Delivery Method Room Air 11/15/24 10:32 Const General: no acute distress; No comfortable Orientation/consciousness: patient oriented x3 Chest Chest palpation & inspection: tenderness rib (Right Sided Anterior chest wall tenderness) Resp Effort & Inspection: normal respiratory effort Auscultation: clear to auscultation bilaterally, no crackles, no rales, no rhonchi and no wheezes Cardio Heart sounds: S1 normal heart sound present and S2 normal heart sound present Neuro General: patient oriented x3 Assessment & Plan Assessment & Plan (1) SOB (shortness of breath): Code(s): R06.02 - Shortness of breath Plan: Ordered chest Xray to r/o Fracture. Advised to Use Albuterol rescue inhaler as directed for SOB. Lungs CTA, Probably costochondritis vs Fracture F/U with Pulmonology. F/U with PCP. Orders: Orders XR ribs RT min 3V w CXR1V Today R06.02 - Shortness of breath Medications: New ibuprofen 800 mg PO Q8H 30 tabs 0RF S22.39XA - Fracture of one rib, unspecified side, initial encounter for closed fracture Coding Level of Care Code Est Pt Level 4 (01764) Diagnoses SOB (shortness of breath) R06.02 Time Spent (min) 20
[2024-11-15 10:32] VITALS: BP 108/62; PULSE 69; O2SAT 95
--- OUTSIDE RECORDS SUMMARY | 2024-11-15 11:42 | XMS_ITS | Clinical Summary ---
Author Organization [facility] [address] [facility] Address [address] [place] [address] Phone Care Team Providers Care Ordnance Handler Name Role Phone Hernan Nesbitt MD Primary [...] meal each day. 90 each 1 5 08/21/19 26 Active amLODIPine (NORVASC) 5 [...] disease) COPD (chronic obstructive pulmonary disease) (CM S/HCC V24, CMS/HCC V28) Hyperlipidemia Anxiety and depression Family History Medical [...] 06/05/2024 2:54 PM EST Plan of Treatment Health Maintenance Due Date Last Done Comments [...] EST Primary hypertension Coronary artery disease involving elem coronary artery of elem heart without angina pectoris Mixed hyperlipidemia Chronic obstructive pulmonary disease, unspecified COPD type (CMS/HCC V24, CMS/HCC V28) Benign prostatic hyperplasia with urinary hesitancy Gastroesophageal reflux disease without esophagitis Anxiety and depression Screening for prostate cancer Screening for diabetes mellitus Screening for deficiency anemia LIPID PANEL WITH REFLEX TO DIRECT LDL Routine 07/10/2024 9:45 AM EST Primary hypertension Coronary artery disease involving elem coronary artery of elem heart without angina pectoris Mixed hyperlipidemia Chronic obstructive pulmonary disease, unspecified COPD type (CMS/HCC V24, CMS/HCC V28) Benign prostatic hyperplasia with urinary hesitancy Gastroesophageal reflux disease without esophagitis Anxiety and depression Screening for prostate cancer Screening for diabetes mellitus Screening for deficiency anemia from Last 3 Months or Most Recently Relevant to Health Maintenance Results * Lipid panel with reflex to direct LDL (07/10/2024 9:45 AM EST) Cholesterol 141 0 - 200 mg/dL LAB CHEMISTRY METHOD 07/10/2024 12:10 PM EST [facility] Triglycerides 50 0 - 150 mg/dL LAB CHEMISTRY METHOD 07/10/2024 12:10 PM EST [facility] HDL 76 >=40 mg/dL LAB CHEMISTRY METHOD 07/10/2024 12:10 PM [facility] LDL Calculated 55 0 - 100 mg/dL LAB CHEMISTRY METHOD 07/10/2024 12:10 PM EST [facility] VLDL Cholesterol Sanjay 10 mg/dL LAB CHEMISTRY METHOD 07/10/2024 12:10 PM [facility] Non HDL Chol. (LDL+VLDL) 65 <145 mg/dL LAB CHEMISTRY METHOD 07/10/2024 12:10 PM [facility] Chol/HDL Ratio 1.9 0.0 - 4.4 LAB CHEMISTRY METHOD 07/10/2024 12:10 PM [facility] Blood Venous blood specimen / Unknown Venipuncture / Unknown 07/10/2024 9:45 AM EST 07/10/2024 9:45 AM EST us Hernan Nesbitt MD LAB BLOOD ORDERABLES Final Result [facility] [address] [place] [address], [place] [phone] * (ABNORMAL) Comprehensive metabolic panel (07/10/2024 9:45 AM EST) Sodium 140 133 - 145 mmol/L LAB CHEMISTRY METHOD 07/10/2024 12:09 PM [facility] Potassium 4.3 3.5 - 5.5 mmol/L LAB CHEMISTRY METHOD 07/10/2024 12:09 PM [facility] Chloride 106 96 - 110 mmol/L LAB CHEMISTRY METHOD 07/10/2024 12:09 PM [facility] CO2 27 21 - 32 mmol/L LAB CHEMISTRY METHOD 07/10/2024 12:09 PM [facility] Anion Gap 7 3 - 11 LAB CHEMISTRY METHOD 07/10/2024 12:09 PM [facility] Glucose 111(H) 70 - 100 mg/dL LAB CHEMISTRY METHOD 07/10/2024 12:09 PM [facility] BUN 11 5 - 25 mg/dL LAB CHEMISTRY METHOD 07/10/2024 12:09 PM [facility] Creatinine 1.07 0.70 - 1.30 mg/dL LAB CHEMISTRY METHOD 07/10/2024 12:09 PM [facility] eGFR 72 >=60 mL/min/1. 73m2 LAB CHEMISTRY METHOD 07/10/2024 12:09 PM [facility] Comment:Calculation based on the??Chronic Kidney Disease Epidemiology Collaboration (CKD-EPI) equation refit??without adjustment for race. BUN/Creatinine Ratio 10.3 LAB CHEMISTRY METHOD 07/10/2024 12:09 PM [facility] Calcium 9.4 8.5 - 10.5 mg/dL LAB CHEMISTRY METHOD 07/10/2024 12:09 PM [facility] AST (SGOT) 38 10 - 42 unit/L LAB CHEMISTRY METHOD 07/10/2024 12:09 PM [facility] ALT (SGPT) 56 10 - 60 unit/L LAB CHEMISTRY METHOD 07/10/2024 12:09 PM [facility] Alkaline Phosphatase 94 42 - 121 unit/L LAB CHEMISTRY METHOD 07/10/2024 12:09 PM [facility] Total Protein 7.0 6.0 - 8.0 g/dL LAB CHEMISTRY METHOD 07/10/2024 12:09 PM [facility] Albumin 4.0 3.2 - 5.0 g/dL LAB CHEMISTRY METHOD 07/10/2024 12:09 PM [facility] Total Bilirubin 0.7 0.0 - 1.4 mg/dL LAB CHEMISTRY METHOD 07/10/2024 12:09 PM [facility] Blood Venous blood specimen / Unknown Venipuncture / Unknown 07/10/2024 9:45 AM EST 07/10/2024 9:45 AM EST us Hernan Nesbitt MD LAB BLOOD ORDERABLES Final Result [facility] [address] [place], [place] [address] [phone] from Last 3 Months or Most Recently Relevant to Health Maintenance Insurance [id number] [facility] [place] [address] MEDICARE Care Teams Ordnance Handler Relationship Specialty Start Date End Date Hernan Nesbitt MD [address] [place] [id number] PCP - General Internal Medicine 04/26/24
== END 2024-11-15 11:34 | disposition home or self-care (01) ==
PROVIDERS: PCP Nurse Practitioner Family; Visit Provider Nurse Practitioner Family
DX: R06.02 Shortness of breath (principal)

== ENCOUNTER → 2024-11-15 11:07 | Outpatient (BNV) | payer MEDICARE, OTHER, SELFPAY | PROVIDERS: PCP Nurse Practitioner Family; Visit Provider Radiology Diagnostic Radiology | DX: S22.31XA Fracture of one rib, right side, initial encounter for closed fracture (principal) | CPT/HCPCS: 71101 ==

== ENCOUNTER 2024-12-14 16:40 | Outpatient (REF) | payer MEDICARE, OTHER, SELFPAY ==
--- NOTE | ~2024-12-14 | CT_ITS ---
CLINICAL HISTORY: R91.1 - Solitary pulmonary nodule CT chest without contrast Comparison: None Findings: The heart size is normal. The visualized thyroid and mediastinum are unremarkable. A 1.2 cm calcified nodule is seen in the left lower lobe. The upper abdomen is unremarkable. The bones are intact. There are multiple bilateral 2-4 mm nodules mostly in a tree-in-bud configuration suggestive of bronchiolitis of indeterminate age. No dominant or suspicious nodules are noted. IMPRESSION: 1. Multiple bilateral pulmonary nodules mostly in a tree-in-bud configuration compatible with bronchiolitis of indeterminate age. If the patient is at high-risk consider obtaining a follow-up examination in 12 months. Otherwise no further follow-up is necessary. This document has been electronically signed by: Saul Wall MD on 12/18/2024 12:31:35
--- OUTSIDE RECORDS SUMMARY | 2024-12-14 16:42 | XMS_ITS | Clinical Summary ---
Author Organization [facility] [address] [facility] Address [address] [place] [address] Phone Care Team Providers Care Sales Account Manager Name Role Phone Hernan Nesbitt MD Primary [...] EST Primary hypertension Coronary artery disease involving [place] coronary artery of [place] heart without angina pectoris Mixed hyperlipidemia Chronic obstructive pulmonary disease, unspecified COPD type (CMS/HCC V24, CMS/HCC V28) Benign prostatic hyperplasia with urinary hesitancy Gastroesophageal reflux disease without esophagitis Anxiety and depression Screening for prostate cancer Screening for diabetes mellitus Screening for deficiency anemia LIPID PANEL WITH REFLEX TO DIRECT LDL Routine 07/10/2024 9:45 AM EST Primary hypertension Coronary artery disease involving [place] coronary artery of [place] heart without angina pectoris Mixed hyperlipidemia Chronic [...] LAB CHEMISTRY METHOD 07/10/2024 12:10 PM EST [facility] Triglycerides 50 0 - 150 mg/dL LAB CHEMISTRY METHOD 07/10/2024 12:10 PM EST [facility] HDL 76 >=40 mg/dL LAB CHEMISTRY METHOD 07/10/2024 12:10 PM [facility] LDL Calculated 55 0 - 100 mg/dL LAB CHEMISTRY METHOD 07/10/2024 12:10 PM EST [facility] VLDL Cholesterol Sanjay 10 mg/dL LAB CHEMISTRY METHOD 07/10/2024 12:10 PM [facility] Non HDL Chol. (LDL+VLDL) 65 <145 mg/dL LAB CHEMISTRY METHOD 07/10/2024 12:10 PM [facility] Chol/HDL Ratio 1.9 0.0 - 4.4 LAB CHEMISTRY METHOD 07/10/2024 12:10 PM [facility] Blood Venous blood specimen / Unknown Venipuncture / Unknown 07/10/2024 9:45 AM EST 07/10/2024 9:45 AM EST us Hernan Nesbitt MD LAB BLOOD ORDERABLES Final Result [facility] [address] [place] [address], [place] [phone] * (ABNORMAL) Comprehensive metabolic panel (07/10/2024 9:45 AM EST) Sodium 140 133 - 145 mmol/L LAB CHEMISTRY METHOD 07/10/2024 12:09 PM [facility] Potassium 4.3 3.5 - 5.5 mmol/L LAB CHEMISTRY METHOD 07/10/2024 12:09 PM [facility] Chloride 106 96 - 110 mmol/L LAB CHEMISTRY METHOD 07/10/2024 12:09 PM [facility] CO2 27 21 - 32 mmol/L LAB CHEMISTRY METHOD 07/10/2024 12:09 PM [facility] Anion Gap 7 3 - 11 LAB CHEMISTRY METHOD 07/10/2024 12:09 PM [facility] Glucose 111(H) 70 - 100 mg/dL LAB CHEMISTRY METHOD 07/10/2024 12:09 PM [facility] BUN 11 5 - 25 mg/dL LAB CHEMISTRY METHOD 07/10/2024 12:09 PM [facility] Creatinine 1.07 0.70 - 1.30 mg/dL LAB CHEMISTRY METHOD 07/10/2024 12:09 PM [facility] eGFR 72 >=60 mL/min/1. 73m2 LAB CHEMISTRY METHOD 07/10/2024 12:09 PM [facility] Comment:Calculation based on the??Chronic Kidney Disease Epidemiology Collaboration (CKD-EPI) equation refit??without adjustment for race. BUN/Creatinine Ratio 10.3 LAB CHEMISTRY METHOD 07/10/2024 12:09 PM [facility] Calcium 9.4 8.5 - 10.5 mg/dL LAB CHEMISTRY METHOD 07/10/2024 12:09 PM [facility] AST (SGOT) 38 10 - 42 unit/L LAB CHEMISTRY METHOD 07/10/2024 12:09 PM [facility] ALT (SGPT) 56 10 - 60 unit/L LAB CHEMISTRY METHOD 07/10/2024 12:09 PM [facility] Alkaline Phosphatase 94 42 - 121 unit/L LAB CHEMISTRY METHOD 07/10/2024 12:09 PM [facility] Total Protein 7.0 6.0 - 8.0 g/dL LAB CHEMISTRY METHOD 07/10/2024 12:09 PM [facility] Albumin 4.0 3.2 - 5.0 g/dL LAB CHEMISTRY METHOD 07/10/2024 12:09 PM [facility] Total Bilirubin 0.7 0.0 - 1.4 mg/dL LAB CHEMISTRY METHOD 07/10/2024 12:09 PM [facility] Blood Venous blood specimen / Unknown Venipuncture / Unknown 07/10/2024 9:45 AM EST 07/10/2024 9:45 AM EST us Hernan Nesbitt MD LAB BLOOD ORDERABLES Final Result [facility] [address] [place], [place] [address] [phone] from Last 3 Months or Most Recently Relevant to Health Maintenance Insurance [address] [facility] [address] MEDICARE Care Teams Sales Account Manager Relationship Specialty Start Date End Date Hernan Nesbitt MD [address] [place] [phone] PCP - General Internal Medicine 04/26/24
== END 2024-12-14 16:41 | disposition home or self-care (01) ==
LOC: HO.CT 16:40
PROVIDERS: PCP Nurse Practitioner Family; Visit Provider Nurse Practitioner Family
DX: R91.1 Solitary pulmonary nodule (principal)
CPT/HCPCS: 71250

== ENCOUNTER 2025-01-08 09:41 | Outpatient (REF) | payer MEDICARE, OTHER, SELFPAY ==
--- NOTE | ~2025-01-08 | XR_ITS ---
EXAMINATION: XR CHEST CLINICAL INFORMATION: R05.9 - Cough, unspecified COMPARISON: August 03, 2018. Correlated to CT chest dated December 14, 2024. TECHNIQUE: 2 views of the chest were obtained. FINDINGS: Pulmonary reticular pattern. 4 mm calcified pulmonary nodule left lung. No pleural effusion. No pneumothorax. Cardiomediastinal silhouette size is normal. Multilevel thoracolumbar spondylosis. S-shaped curvature of the thoracic. XR/XR chest 2V IMPRESSION: Chronic interstitial lung disease. Superimposed acute/subacute airspace disease cannot be excluded. Granuloma, left lung. Multilevel spondylosis and likely mild scoliosis. Electronically signed by: Severiano Platt MD 01/08/2025 10:54 AM EDT
== END 2025-01-08 09:42 | disposition home or self-care (01) ==
LOC: HO.HMGCX 09:41
PROVIDERS: PCP Nurse Practitioner Family; Visit Provider Physician Assistant
DX: I10 Essential (primary) hypertension (principal); R05.9 Cough, unspecified; J22 Unspecified acute lower respiratory infection
CPT/HCPCS: 71046; 87880; 99212

== ENCOUNTER 2025-01-08 09:41 | Outpatient (AMB) | payer MEDICARE, OTHER, SELFPAY ==
--- NOTE | 2025-01-08 09:39 | AM.OFFWIN_ITS ---
Intake Vital Signs 01/08/25 09:43 Height 5 ft 9 in Weight 180 lb 2 oz BMI 26.6 BP 124/68 Blood Pressure Location Rt brachial Position Sitting Pulse 76 Pulse Source Pulse Oximeter Temp 98.0 F Temp Source Oral Pulse Oximetry (%) 95 Oxygen Delivery Method Room Air Intake Visit Reasons: EP-chest congestion, cough, sore throat, body ache Patient Tobacco Use Status: Former Tobacco user Allergies cat dander Allergy (Severe, Verified 01/08/25 09:47) Unknown Do you need a note to return to daycare/school/sports/work: No HPI HPI Comments History of Present Illness0 Details History - The patient is a 79-year-old male with a past med hx of lung ca, COPD, recent 5th rib fx, allergies, CAD, HTN and GERD presenting with cough and shortness of breath. - The cough has been present for a few d ays, initially thought to be due to allergies, with clear mucus production. - The patient reports a history of rib f racture approximately four to five weeks ago, which may be contributing to discomfort and altered breathing patterns. - The patient has a history of lung canc er, with no current evidence of active disease. - The patient has Chronic Obstructive Pu lmonary Disease (COPD) and uses inhalers regularly, including a rescue inhaler. - The patient denies fever but reports w aking up sweaty, and there is no sinus or ear pain. - Takes daily cetirizine but has not rao en any other cough suppressants or decongestants Physical Exam General: Cooperative, healthy appearing, comfortable and no acute distress Orientation/consciousness: Patient oriented x3 Limitations: No limitations Head: Normal to inspection Ears: Hearing grossly normal bilaterally, external ears normal and TM's normal bilaterally Nose: Normal external nose present, Normal nares present and No nasal discharge present Face and sinus: Normal facial exam and Yes sinuses nontender Mouth: Normal oral and palatal mucosa present and moist mucous membranes Throat: Yes tonsils normal, Yes uvula midline. Posterior oropharynx erythema, no exudates Eyes: Appearance normal, both eyes and all related structures Neck: Normal visual inspection, full ROM Respiratory: dim lung sounds, no wheezing. Normal respiratory effort, able to speak in complete sentences, not actively coughing, no respiratory distress, not tachypneic, no tripod positioning and no use of accessory muscles. Cardiovascular: Regular rate and rhythm. Normal S1 and S2 Skin: No rashes or lesions noted Neuro: Patient oriented x3 Extremities: Normal to inspection and Yes no clubbing, cyanosis or edema PFSH Medical History (Updated 01/08/25 @ 10:14 by Janet Maradiaga PA-C) SOB (shortness of breath) Allergic rhinitis Asthma Ectopic cardiac beats Lung cancer Leukopenia CAD (coronary artery disease) Trigger finger GERD (gastroesophageal reflux disease) HTN (hypertension) COPD (chronic obstructive pulmonary disease) Surgical History Hx of left knee surgery Hx of colonoscopy Hx of hand surgery History of umbilical hernia repair Family History Father Medical history non-contributory Unknown family medical history Mother CVD (cardiovascular disease) Brother No problems noted. Son No problems noted. 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 Current occupational exposures/hazards: No Cognitive needs: No Hearing needs: No Vision needs: No Review of Systems Const All systems reviewed & are unremarkable except as noted in HPI and below Physical Exam Vital Signs: Last Vital Signs Temp 98.0 F 01/08/25 09:43 Pulse 76 01/08/25 09:43 BP 124/68 01/08/25 09:43 Pulse Ox 91 L 01/08/25 09:43 Oxygen Delivery Method Room Air 01/08/25 09:43 BMI result Body Mass Index 26.6 Results AMB Rapid Strep AMB Rapid Strep Negative Last Edit by Nancy Freed CMA on 01/08/25 10:07 Assessment & Plan Assessment & Plan (1) Lower respiratory infection (e.g., bronchitis, pneumonia, pneumonitis, pulmonitis): Code(s): J22 - Unspecified acute lower respiratory infection Plan: - VSS, pt well appearing and PE remarkable for dim lung sounds. - Obtain a chest x-ray to rule out pneumonia due to recent rib fracture, likely has been splinting his breathing and current respiratory symptoms. - Prescribe Tessalon Perles as a cough suppressant to be taken at night. - Recommend Mucinex during the day for decongestion. - Follow up with the patient after chest x-ray results to determine further management, including potential antibiotic therapy if pneumonia is confirmed. Patient was informed and verbally consented to the use of an ambient scribe for clinic note documentation during this visit Orders: Orders XR chest 2V Today R05.9 - Cough, unspecified AMB Rapid Strep Screen Today Z13.9 - Encounter for screening, unspecified Medications: New benzonatate 200 mg PO BEDTIME PRN 10 caps 0RF cough Coding Level of Care Code Est Pt Level 4 (41195) Diagnoses Lower respiratory infection (e.g., bronchitis, pneumonia, pneumonitis, pulmonitis) J22
[2025-01-08 09:43] VITALS: BP 124/68; PULSE 76; TEMP 36.7; O2SAT 95; BMI 26.6
--- OUTSIDE RECORDS SUMMARY | 2025-01-08 10:41 | XMS_ITS | Clinical Summary ---
Author Organization [facility] [address] [facility] Address [address] [place] [address] Phone Care Team Providers Care Conference Assistant Name Role Phone Hernan Nesbitt MD Primary Care Provider [phone] Allergies Active Allergy Reactions Criticality Noted Date Comments Cat Dander 06/05/2024 Other 06/05/2024 Seasonal allergies Medications citalopram (CeleXA) 20 mg tablet Take 1 tablet (20 mg total) by mouth 1 (one) time each day. 05/17/20 24 Active lisinopriL (PRINIVIL,ZEST RIL) 20 mg tablet Take 1 tablet (20 mg total) by mouth 1 (one) time each day. 05/24/20 24 Active aspirin 81 mg EC tablet Take [...] 1 (one) time each day. Active vitamin E acetate (VITAMIN E ORAL) [...] same meal each day. 90 each 1 08/21/19 25 026 Active amLODIPine (NORVASC) 5 mg tablet Take 1 tablet (5 mg total) by mouth 1 (one) time each day. 90 tablet 1 08/21/19 25 Active famotidine (PEPCID) 20 mg tablet Take 1 tablet (20 mg total) by mouth 2 (two) times a day. 180 tablet 1 09/04/19 25 Active atorvastatin (LIPITOR) 40 mg tablet Take 1 tablet (40 mg total) by mouth 1 (one) time each day. for 90 days 90 each 1 09/25/19 25 Active Wixela Inhub 250-50 mcg/dose diskus inhaler Inhale 1 puff by mouth 2 (two) times a day. 1 each 1 09/25/19 25 Active montelukast (SINGULAIR) 10 mg tablet TAKE 1 TABLET (10 MG TOTAL) BY MOUTH AT BEDTIME. AT BEDTIME. 30 tablet 12/28/19 25 Active montelukast (SINGULAIR) 10 mg tablet Take 1 tablet (10 mg total) by mouth at bedtime. at bedtime. 90 tablet 1 06/05/20 24 025 Discontinued Surgical History Surgery Date Site/Laterality Comments OTHER [...] EST Primary hypertension Coronary artery disease involving [place] coronary artery of [place] heart without angina pectoris Mixed hyperlipidemia Chronic obstructive pulmonary disease, unspecified COPD type (CMS/HCC V24, CMS/HCC V28) Benign prostatic hyperplasia with urinary hesitancy Gastroesophageal reflux disease without esophagitis Anxiety and depression Screening for prostate cancer Screening for diabetes mellitus Screening for deficiency anemia LIPID PANEL WITH REFLEX TO DIRECT LDL Routine 07/10/2024 9:45 AM EST Primary hypertension Coronary artery disease involving [place] coronary artery of [place] heart without angina pectoris Mixed hyperlipidemia Chronic [...] PM EST [facility] LDL Calculated 55 0 - 100 mg/dL LAB CHEMISTRY METHOD 07/10/2024 12:10 PM [facility] VLDL Cholesterol Sanjay 10 mg/dL LAB CHEMISTRY METHOD 07/10/2024 12:10 PM [facility] Non HDL Chol. (LDL+VLDL) 65 <145 mg/dL LAB CHEMISTRY METHOD 07/10/2024 12:10 PM [facility] Chol/HDL Ratio 1.9 0.0 - 4.4 LAB CHEMISTRY METHOD 07/10/2024 12:10 PM [facility] Blood Venous blood specimen / Unknown Venipuncture / Unknown 07/10/2024 9:45 AM EST 07/10/2024 9:45 AM EST us Hernan Nesbitt MD LAB BLOOD ORDERABLES Final Result [facility] [address] [place] [address], [place] [phone] * (ABNORMAL) Comprehensive metabolic panel (07/10/2024 9:45 AM EST) Sodium 140 133 - 145 mmol/L LAB CHEMISTRY METHOD 07/10/2024 12:09 PM [facility] Potassium 4.3 3.5 - 5.5 mmol/L LAB CHEMISTRY METHOD 07/10/2024 12:09 PM [facility] Chloride 106 96 - 110 mmol/L LAB CHEMISTRY METHOD 07/10/2024 12:09 PM [facility] CO2 27 21 - 32 mmol/L LAB CHEMISTRY METHOD 07/10/2024 12:09 PM [facility] Anion Gap 7 3 - 11 LAB CHEMISTRY METHOD 07/10/2024 12:09 PM [facility] Glucose 111(H) 70 - 100 mg/dL LAB CHEMISTRY METHOD 07/10/2024 12:09 PM [facility] BUN 11 5 - 25 mg/dL LAB CHEMISTRY METHOD 07/10/2024 12:09 PM [facility] Creatinine 1.07 0.70 - 1.30 mg/dL LAB CHEMISTRY METHOD 07/10/2024 12:09 PM [facility] eGFR 72 >=60 mL/min/1. 73m2 LAB CHEMISTRY METHOD 07/10/2024 12:09 PM [facility] Comment:Calculation based on the??Chronic Kidney Disease Epidemiology Collaboration (CKD-EPI) equation refit??without adjustment for race. BUN/Creatinine Ratio 10.3 LAB CHEMISTRY METHOD 07/10/2024 12:09 PM [facility] Calcium 9.4 8.5 - 10.5 mg/dL LAB CHEMISTRY METHOD 07/10/2024 12:09 PM [facility] AST (SGOT) 38 10 - 42 unit/L LAB CHEMISTRY METHOD 07/10/2024 12:09 PM [facility] ALT (SGPT) 56 10 - 60 unit/L LAB CHEMISTRY METHOD 07/10/2024 12:09 PM [facility] Alkaline Phosphatase 94 42 - 121 unit/L LAB CHEMISTRY METHOD 07/10/2024 12:09 PM [facility] Total Protein 7.0 6.0 - 8.0 g/dL LAB CHEMISTRY METHOD 07/10/2024 12:09 PM [facility] Albumin 4.0 3.2 - 5.0 g/dL LAB CHEMISTRY METHOD 07/10/2024 12:09 PM [facility] Total Bilirubin 0.7 0.0 - 1.4 mg/dL LAB CHEMISTRY METHOD 07/10/2024 12:09 PM [facility] Blood Venous blood specimen / Unknown Venipuncture / Unknown 07/10/2024 9:45 AM EST 07/10/2024 9:45 AM EST us Hernan Nesbitt MD LAB BLOOD ORDERABLES Final Result [facility] [address] [place] [address], from Last 3 Months or Most Recently Relevant to Health Maintenance Insurance MEDICARE Care Teams Conference Assistant Relationship Specialty Start Date End Date Hernan Nesbitt MD [address] [place] [phone] PCP - General Internal Medicine 04/26/24
== END 2025-01-08 10:18 | disposition home or self-care (01) ==
PROVIDERS: PCP Nurse Practitioner Family; Visit Provider Physician Assistant
DX: Z13.9 Encounter for screening, unspecified (principal); J22 Unspecified acute lower respiratory infection

== ENCOUNTER → 2025-01-08 10:13 | Outpatient (BNV) | payer MEDICARE, OTHER, SELFPAY | PROVIDERS: PCP Nurse Practitioner Family; Visit Provider Radiology Diagnostic Radiology | DX: J84.9 Interstitial pulmonary disease, unspecified (principal) | CPT/HCPCS: 71046 ==

== ENCOUNTER 2025-01-30 10:12 | Outpatient (AMB) | payer MEDICARE, OTHER, SELFPAY ==
[2025-01-30 10:18] VITALS: BP 120/74; PULSE 60; O2SAT 96; BMI 26.4
--- NOTE | 2025-01-30 10:18 | MHC.OFFVIS ---
Vital Signs 01/30/25 10:18 Height 5 ft 9 in Weight 178 lb 9.191 oz BMI 26.4 BP 120/74 Blood Pressure Location Lt brachial Position Sitting Pulse 60 Pulse Source Pulse Oximeter Pulse Oximetry (%) 96 Oxygen Delivery Method Room Air Intake Visit Reasons: copd Intake Note: pt is here for follow up and is feeling okay, needs refill on Wixela and montelukast., he does states that it seems he is getting out of breath more. Ship Worker Required: No Allergies cat dander Allergy (Severe, Verified 01/30/25 10:35) Unknown Medication List - Last Reconciled 01/30/25 by Justin Crenshaw MD albuterol sulfate 90 mcg/actuation 2 puffs PO Q6H PRN amlodipine 5 mg PO DAILY 90 days ascorbate calcium (vitamin C) 500 mg PO DAILY aspirin (Adult Aspirin Regimen) 81 mg PO DAILY 90 days atorvastatin 40 mg PO DAILY 90 days benzonatate 200 mg PO BEDTIME PRN cholecalciferol (vitamin D3) 50 mcg PO DAILY citalopram 20 mg PO DAILY 90 days famotidine 20 mg PO BID PRN fluticasone propion-salmeterol 250-50 mcg/dose (Wixela Inhub) 1 inh inhalation BID 30 days latanoprost 0.005% drps ophthalmic (eye) DAILY lisinopril 20 mg PO DAILY montelukast 10 mg PO BEDTIME tamsulosin 0.4 mg PO BEDTIME vitamin E (dl, acetate) 45 mg PO DAILY Do you need a note to return to daycare/school/sports/work: No HPI HPI copd: Details: This 79 years old gentleman is being seen after 6 months for his follow-up. Complains of increased shortness of breath on exertion and also more frequent bouts of cough. He has been treated with a course of antibiotic in October and then in December 2024. Nasal congestion is mild and controlled with montelukast. [facility] Medical History SOB (shortness of breath) Allergic rhinitis Asthma Ectopic cardiac beats Lung cancer Leukopenia CAD (coronary artery disease) Trigger finger GERD (gastroesophageal reflux disease) HTN (hypertension) COPD (chronic obstructive pulmonary disease) Surgical History Hx of left knee surgery Hx of colonoscopy Hx of hand surgery History of umbilical hernia repair Family History Father Medical history non-contributory Unknown family medical history Mother CVD (cardiovascular disease) Brother No problems noted. Son No problems noted. 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 Current occupational exposures/hazards: No Cognitive needs: No Hearing needs: No Vision needs: No Review of Systems Const All systems reviewed & are unremarkable except as noted in HPI and below ENT Reports nasal congestion (Mild intermittent) and Reports nasal discharge Card Denies chest pain, Denies irregular heart rhythm and Denies leg edema Resp Reports as per HPI GI Reports heartburn (Controlled with med) Reports no additional complaints Musc Reports no additional complaints Skin/Breast Reports system reviewed and no additional complaints, except as documented Neuro Reports no additional complaints Psych Reports depression (Controlled with med) Endo Reports no additional complaints Pernell/Lymph Reports no additional complaints Physical Exam Vital Signs: Last Vital Signs Pulse 60 01/30/25 10:18 BP 120/74 01/30/25 10:18 Pulse Ox 96 01/30/25 10:18 Oxygen Delivery Method Room Air 01/30/25 10:18 BMI result Body Mass Index 26.4 Const General: healthy appearing, comfortable, no acute distress, alert and awake Orientation/consciousness: patient oriented x3 HEENT Head: Yes normal to inspection General nose exam: No nasal polyps present and No nasal discharge present Face and sinus: Yes sinuses nontender Mouth: oropharynx normal Throat: Yes posterior oropharynx normal Eyes General: appearance normal, both eyes and all related structures Neck Neck: Yes normal visual inspection, Yes no lymphadenopathy, Yes trachea midline and Yes no JVD Thyroid: Thyroid normal Chest Chest palpation & inspection: normal inspection of the chest, normal palpation of entire chest wall and no tenderness Resp Other: Percussion note resonant, breath sounds are distant with prolonged expiratory phase. No audible wheezes but there are a few inspiratory crackles over the lower lobes. Cardio Palpation: normal PMI Rate: regular rate Rhythm: regular rhythm Heart sounds: no gallops and no murmurs Peripheral pulses: Peripheral pulses 2+ throughout GI Palpation (GI): Soft to palpation, nontender, No hepatosplenomegaly present and no masses Auscultation: normal bowel sounds Back/Spine/Pelvis Thoracic/Lumbar Spine: thoracic and lumbar spine normal to inspection Skin General skin exam: no rashes or lesions noted Neuro General: patient oriented x3 and no focal motor deficits Cranial nerves: Yes CN's II-XII intact bilaterally Extrem General: Yes normal to inspection, Yes no clubbing, cyanosis or edema and Yes no calf tenderness Psych Appearance: grossly normal and well kempt Speech and movement: Normal speech and movement present Office Procedures Spirometry Testing Spirometry Comments: Spirometry done in the office, Dr. Crenshaw has the results results scanned to his chart. [id number]- Spirometry Results Reviewed Results Reviewed: SPIROMETRY 03/29/2023 01/30/2025 FVC 75 % 70 % FEV1 44 % 44 % FEF 25-75 24 % 33 % Assessment & Plan Assessment & Plan (1) COPD (chronic obstructive pulmonary disease): Comment: HE HAS CHRONIC OBSTRUCTIVE PULM . DISORDER , MODERATELY SEVERE , BUT REMAINS STABLE AND CONTROLLED HOWEVER HE COMPLAINS OF SOMEWHAT INCREASED SHORTNESS OF BREATH ON EXERTION AND ALSO MORE FREQUENT EPISODES OF COUGH. SPIROMETRY SHOWS SEVERE OBSTRUCTIVE DISORDER BUT UNCHANGED FROM BEFORE Code(s): J44.9 - Chronic obstructive pulmonary disease, unspecified Category: Medical Plan: ADVISED TO CONTINUE USING WIXELA 250-51 INHALATION B.I.D. ADD LAMA AGENT, ORDERED INCRUSE ELLIPTA 1 INHALATION DAILY. ALSO GIVEN A SHORT SUPPLY OF PREDNISONE 20 MG B.I.D. FOR 5 DAYS JUST TO KEEP ON HAND IN CASE HE HAS AN ACUTE EXACERBATION. (2) Asthma: Comment: He has longstanding symptoms of allergic rhinitis/asthma, in the past . And the CBC has shown elevated Eiosinophil count. Also elevated IgE level. Thus indicating that he has a component of allergic rhinitis/asthma. However now it has gone more into chronic obstructive pulmonary disorder. Code(s): J45.909 - Unspecified asthma, uncomplicated Category: Medical Plan: SEE THE TREATMENT UNDER COPD (3) Allergic rhinitis: Comment: HISTORY OF CHRONIC ALLERGIC RHINITIS WITH FREQUENT FLARE UPS ESPECIALLY IN SUMMER MONTHS. HIS CAT WAS A BIG SOURCE OF HIS ALLERGIES. FEELS BETTER SINCE HIS CAT . ALSO HE HAS BEEN FEELING BETTER SINCE HE IS ON MONTELUKAST. Code(s): J30.9 - Allergic rhinitis, unspecified Category: Medical Plan: CONTINUE MONTELUKAST 10 MG DAILY MAY USE LORATADINE 10 MG ONCE A DAY P.R.N. Orders: Orders AMB Spirometry Testing Today J44.9 - Chronic obstructive pulmonary disease, unspecified Medications: New prednisone 20 mg PO BID 10 tabs 2RF COPD EXCERBATION 5 days fluticasone propion-salmeterol 250-50 mcg/dose (Wixela Inhub) 1 inh inhalation BID 60 ea 5RF 30 days umeclidinium 62.5 mcg/actuation (Incruse Ellipta) 1 inh inhalation DAILY 30 ea 5RF COPD 30 days J44.9 - Chronic obstructive pulmonary disease, unspecified Coding Level of Care Code Est Pt Level 3 (27479) Diagnoses COPD (chronic obstructive pulmonary disease) J44.9 Asthma J45.909 Allergic rhinitis J30.9 CPT Codes Spirometry - CPT: 13909- Spirometry ([id number])
--- OUTSIDE RECORDS SUMMARY | 2025-01-30 10:59 | XMS_ITS | Clinical Summary ---
Author Organization [facility] [address] [facility] Address [address] [place] [address] Phone Care Team Providers Care Pharmacist In Charge Owner Name Role Phone Hernan Nesbitt MD Primary [...] a day. 1 each 1 5 Active montelukast (SINGULAIR) 10 mg tablet TAKE 1 TABLET (10 MG TOTAL) BY MOUTH AT BEDTIME. AT BEDTIME. 30 tablet 5 Active Surgical History Surgery Date Site/Laterality [...] 74 06/05/2024 2:54 PM EST Temperature 36.2 C (97.2 F) 06/05/2024 2:54 PM EST Respiratory Rate - - Oxygen Saturation - [...] 2024 07/30/2021, 11/25/2020, 10/28/2020 Influenza Vaccine (#1) 2025 , 05/17/2019, 04/12/2018, Additional history exists Hypertension/CHF/CAD Annual [...] EST Primary hypertension Coronary artery disease involving mi'kmaq coronary artery of mi'kmaq heart without angina pectoris Mixed hyperlipidemia Chronic obstructive pulmonary disease, unspecified COPD type ([facility] V24, CMS/[facility] V28) Benign prostatic hyperplasia with urinary hesitancy Gastroesophageal reflux disease without esophagitis Anxiety and depression Screening for prostate cancer Screening for diabetes mellitus Screening for deficiency anemia LIPID PANEL WITH REFLEX TO DIRECT LDL Routine 07/10/2024 9:45 AM EST Primary hypertension Coronary artery disease involving mi'kmaq coronary artery of mi'kmaq heart without angina pectoris Mixed hyperlipidemia Chronic [...] [facility] Triglycerides 50 0 - 150 mg/dL LAB CHEMISTRY METHOD 07/10/2024 12:10 PM EST [facility] HDL 76 >=40 mg/dL LAB CHEMISTRY METHOD 07/10/2024 12:10 PM EST [facility] LDL Calculated 55 0 - 100 mg/dL LAB CHEMISTRY METHOD 07/10/2024 12:10 PM [facility] VLDL Cholesterol Sanjay 10 [...] Nesbitt MD LAB BLOOD ORDERABLES Final Result [facility] [address] [place] [address], [place] [phone] * (ABNORMAL) Comprehensive metabolic panel (07/10/2024 9:45 [...] [facility] Comment:Calculation based on the Chronic Kidney Disease Epidemiology Collaboration (CKD-EPI) equation refit without adjustment for race. BUN/Creatinine Ratio 10.3 LAB [...] Nesbitt MD LAB BLOOD ORDERABLES Final Result [facility] [address] [place] [address], from Last 3 Months or Most Recently Relevant to Health Maintenance Insurance MEDICARE Care Teams Pharmacist In Charge Owner Relationship Specialty Start Date End Date Hernan Nesbitt MD [address] [place] [phone] PCP - General Internal Medicine 04/26/24
== END 2025-01-30 10:57 | disposition home or self-care (01) ==
LOC: HO.HPS 10:13
PROVIDERS: PCP Nurse Practitioner Family; Visit Provider Internal Medicine
DX: J44.9 Chronic obstructive pulmonary disease, unspecified (principal); J45.909 Unspecified asthma, uncomplicated; J30.9 Allergic rhinitis, unspecified
CPT/HCPCS: 94010; 99213

== ENCOUNTER → 2025-01-30 10:12 | Outpatient (BNVA) | payer MEDICARE, OTHER, SELFPAY | PROVIDERS: PCP Nurse Practitioner Family; Visit Provider Internal Medicine | DX: J44.9 Chronic obstructive pulmonary disease, unspecified (principal); J45.909 Unspecified asthma, uncomplicated; R06.02 Shortness of breath; R05.9 Cough, unspecified; Z79.899 Other long term (current) drug therapy | CPT/HCPCS: 94010; 99212 ==

== ENCOUNTER 2025-01-31 08:19 | Outpatient (AMB) | payer MEDICARE, OTHER, SELFPAY ==
--- OUTSIDE RECORDS SUMMARY | 2025-01-31 08:27 | XMS_ITS | Clinical Summary ---
Author Organization [facility] [address] [facility] Address [address] [place] [address] Phone Care Team Providers Care Tire Repair Mechanic Name Role Phone Hernan Nesbitt MD Primary Care Provider [phone] Allergies Active Allergy Reactions Criticality Noted Date [...] EST Primary hypertension Coronary artery disease involving [place] coronary artery of [place] heart without angina pectoris Mixed hyperlipidemia Chronic obstructive pulmonary disease, unspecified COPD type ([facility] V24, [facility] V28) Benign prostatic hyperplasia with urinary hesitancy Gastroesophageal reflux disease without esophagitis Anxiety and depression Screening for prostate cancer Screening for diabetes mellitus Screening for deficiency anemia LIPID PANEL WITH REFLEX TO DIRECT LDL Routine 07/10/2024 9:45 AM EST Primary hypertension Coronary artery disease involving [place] coronary artery of [place] heart without angina pectoris Mixed hyperlipidemia Chronic [...] mg/dL LAB CHEMISTRY METHOD 07/10/2024 12:10 PM [facility] Triglycerides 50 0 - 150 mg/dL LAB CHEMISTRY METHOD 07/10/2024 12:[address] [facility] HDL 76 >=40 mg/dL LAB CHEMISTRY METHOD 07/10/2024 12:[address] [facility] LDL Calculated 55 0 - 100 mg/dL LAB CHEMISTRY METHOD 07/10/2024 12:10 PM [facility] VLDL Cholesterol Sanjay 10 mg/dL LAB CHEMISTRY METHOD 07/10/2024 12:10 PM [facility] Non HDL Chol. (LDL+VLDL) 65 <145 mg/dL LAB CHEMISTRY METHOD 07/10/2024 12:10 PM [facility] Chol/HDL Ratio 1.9 0.0 - 4.4 LAB CHEMISTRY METHOD 07/10/2024 12:10 PM [facility] Blood Venous blood specimen / Unknown Venipuncture / Unknown 07/10/2024 9:45 AM EST 07/10/2024 9:45 AM EST us Hernan Nesbitt MD LAB BLOOD ORDERABLES Final Result [facility] [address] [place] [address], [place] [phone] * (ABNORMAL) Comprehensive metabolic panel (07/10/2024 9:45 AM EST) Sodium 140 133 - 145 mmol/L LAB CHEMISTRY METHOD 07/10/2024 12:09 PM [facility] Potassium 4.3 3.5 - 5.5 mmol/L LAB CHEMISTRY METHOD 07/10/2024 12:09 PM [facility] Chloride 106 96 - 110 mmol/L LAB CHEMISTRY METHOD 07/10/2024 12:09 PM [facility] CO2 27 21 - 32 mmol/L LAB CHEMISTRY METHOD 07/10/2024 12:09 PM [facility] Anion Gap 7 3 - 11 LAB CHEMISTRY METHOD 07/10/2024 12:09 PM [facility] Glucose 111(H) 70 - 100 mg/dL LAB CHEMISTRY METHOD 07/10/2024 12:09 PM [facility] BUN 11 5 - 25 mg/dL LAB CHEMISTRY METHOD 07/10/2024 12:09 PM [facility] Creatinine 1.07 0.70 - 1.30 mg/dL LAB CHEMISTRY METHOD 07/10/2024 12:09 PM [facility] eGFR 72 >=60 mL/min/1. 73m2 LAB CHEMISTRY METHOD 07/10/2024 12:09 PM [facility] Comment:Calculation based on the Chronic Kidney Disease Epidemiology Collaboration (CKD-EPI) equation refit without adjustment for race. BUN/Creatinine Ratio 10.3 LAB CHEMISTRY METHOD 07/10/2024 12:09 PM [facility] Calcium 9.4 8.5 - 10.5 mg/dL LAB CHEMISTRY METHOD 07/10/2024 12:09 PM [facility] AST (SGOT) 38 10 - 42 unit/L LAB CHEMISTRY METHOD 07/10/2024 12:09 PM [facility] ALT (SGPT) 56 10 - 60 unit/L LAB CHEMISTRY METHOD 07/10/2024 12:09 PM [facility] Alkaline Phosphatase 94 42 - 121 unit/L LAB CHEMISTRY METHOD 07/10/2024 12:09 PM [facility] Total Protein 7.0 6.0 - 8.0 g/dL LAB CHEMISTRY METHOD 07/10/2024 12:09 PM [facility] Albumin 4.0 3.2 - 5.0 g/dL LAB CHEMISTRY METHOD 07/10/2024 12:09 PM [facility] Total Bilirubin 0.7 0.0 - 1.4 mg/dL LAB CHEMISTRY METHOD 07/10/2024 12:09 PM [facility] Blood Venous blood specimen / Unknown Venipuncture / Unknown 07/10/2024 9:45 AM EST 07/10/2024 9:45 AM EST us Hernan Nesbitt MD LAB BLOOD ORDERABLES Final Result [facility] [address] [place] [address], from Last 3 Months or Most Recently Relevant to Health Maintenance Insurance MEDICARE Care Teams Tire Repair Mechanic Relationship Specialty Start Date End Date Hernan Nesbitt MD [address] [place] [id number] PCP - General Internal Medicine 04/26/24
--- NOTE | 2025-01-31 08:35 | MHC.OFFVIS ---
Intake Visit Reasons: postvoid dribbling Intake Note: New Patient is present for post void dribbling Urology Rx:Tamsulosin Blood Thinners:asprin [employer] Certified Network Associate Required: No Accompanied by: Self / Same As Patient Allergies cat dander Allergy (Severe, Verified 01/31/25 08:41) Unknown HPI Comments Details: Baljeet is a pleasant male. He is a patient of Dr. Bettencourt. He is seen for the following urologic conditions - lower urinary tract symptoms Lower urinary tract symptoms Initial presentation with urinary hesitancy and slow stream. Symptoms began within the past year, including hesitation and slow stream. Incomplete bladder emptying is noted, requiring additional voiding attempts. AUA symptom score completed twenty-two bother 3 Current medication is tamsulosin with limited improvement. Improved flow post-coitus due to prostate relaxation. No family history of prostate issues. Urinary Symptoms Review - Hesitancy to urinate - Slow urinary stream - Incomplete bladder emptying requiring additional voiding PFSH Medical History SOB (shortness of breath) Allergic rhinitis Asthma Ectopic cardiac beats Lung cancer Leukopenia CAD (coronary artery disease) Trigger finger GERD (gastroesophageal reflux disease) HTN (hypertension) COPD (chronic obstructive pulmonary disease) Surgical History Hx of left knee surgery Hx of colonoscopy Hx of hand surgery History of umbilical hernia repair Family History Father Medical history non-contributory Unknown family medical history Mother CVD (cardiovascular disease) Brother No problems noted. Son No problems noted. 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 Current occupational exposures/hazards: No Cognitive needs: No Hearing needs: No Vision needs: No Review of Systems Const Denies chills and Denies fever(s) Card Reports no additional complaints and Denies syncope Resp Denies cough GI Denies abdominal pain and Denies heartburn Reports as per HPI and Denies change in libido Neuro Denies syncope Psych Denies change in libido Endo Denies change in libido Physical Exam Const General: cooperative, healthy appearing, comfortable and no acute distress Orientation/consciousness: patient oriented x3 HEENT Face and sinus: Yes normal facial exam Mouth: moist mucous membranes Neck Neck: Yes normal visual inspection, Yes full ROM and Yes trachea midline Chest Chest palpation & inspection: normal inspection of the chest Resp Effort & Inspection: normal respiratory effort, able to speak in complete sentences and no respiratory distress GI Inspection: Yes normal to inspection Back/Spine/Pelvis Cervical Spine: normal cervical lordosis Thoracic/Lumbar Spine: thoracic and lumbar spine normal to inspection Skin General skin exam: no rashes or lesions noted Neuro General: patient oriented x3, gait normal, tone normal and moves all extremities Extrem General: Yes normal to inspection and Yes capillary refill normal Assessment & Plan Assessment & Plan (1) Incomplete bladder emptying: Code(s): R33.9 - Retention of urine, unspecified Category: Medical (2) Weak urinary stream: Code(s): R39.12 - Poor urinary stream Category: Medical (3) Urinary hesitancy: Code(s): R39.11 - Hesitancy of micturition Category: Medical Plan Plan Patient informed verbally consented to the use of an ambient scribe 1. Benign Prostatic Hyperplasia - Switch to terazosin - Bladder ultrasound - Follow-up in two months for uroflowmetry - Consider cystoscopy - Possible procedural intervention Discussion Notes I discussed with the patient the switch from tamsulosin to terazosin for better management of urinary symptoms. We plan to perform a bladder ultrasound and follow-up in two months for uroflowmetry. A cystoscopy may be necessary to evaluate the bladder and prostate, and a procedural intervention might be required if medication is insufficient. Patient Instructions - Start taking terazosin as prescribed - Schedule and complete a bladder ultrasound - Return for follow-up in two months with a full bladder - Be prepared for possible cystoscopy and further procedures if needed Orders: Orders US bladder Today R33.9 - Retention of urine, unspecified Medications: New terazosin 5 mg PO BEDTIME 30 caps 2RF 30 days R33.9 - Retention of urine, unspecified Patient Instructions: This note is constructed using voice recognition software. While every effort has been made to ensure accuracy cafeteria cashier errors may have been included. Imaging studies, laboratory and physical exam results were discussed and reviewed in detail. No major barriers to patient understanding were identified. An opportunity to ask questions regarding the treatment plan was provided. All questions were answered. The patient expressed understanding and agreement with the above treatment plan. The patient is aware they should contact our office by phone for worsening of their current condition or the appearance of new urologic symptoms. Compliance is encouraged with any medications and followup testing that is ordered. It is a privilege to participate in the urologic care of your patient. If you have any questions or concerns regarding treatment for the above conditions, or other urologic issues, please do not hesitate to contact me. The office telephone contact is [phone]. Sincerely, Dr Maxwell Downing MD, [facility] - Urology Compassionate Specialist Care for the Genitourinary System Coding Level of Care Code New Pt Level 4 (79347) Diagnoses Incomplete bladder emptying R33.9 Weak urinary stream R39.12 Urinary hesitancy R39.11
== END 2025-01-31 08:56 | disposition home or self-care (01) ==
LOC: HO.HUSH 08:20
PROVIDERS: PCP Nurse Practitioner Family; Visit Provider Urology
DX: R33.9 Retention of urine, unspecified (principal); R39.12 Poor urinary stream; R39.11 Hesitancy of micturition; Z13.9 Encounter for screening, unspecified
CPT/HCPCS: 99204

== ENCOUNTER → 2025-01-31 08:19 | Outpatient (BNVA) | payer MEDICARE, OTHER, SELFPAY | PROVIDERS: PCP Nurse Practitioner Family; Visit Provider Urology | DX: R39.12 Poor urinary stream (principal); R33.9 Retention of urine, unspecified; R39.11 Hesitancy of micturition | CPT/HCPCS: 81003; 99202 ==

== ENCOUNTER 2025-03-26 08:02 | Outpatient (REF) | payer MEDICARE, OTHER, SELFPAY ==
--- NOTE | ~2025-03-26 | US_ITS ---
EXAMINATION: US PELVIS LIMITED (BLADDER) CLINICAL INFORMATION: Retention of urine.. COMPARISON: None available. TECHNIQUE: Real-time imaging of the bladder. FINDINGS: BLADDER: Well distended and normal. Bilateral ureteral jets are demonstrated. Prevoid bladder volume is 286 mL. Postvoid bladder volume is 54.2 mL. US/US bladder IMPRESSION: Moderate post void bladder retention. Electronically signed by: Rian Valdes MD 03/26/2025 10:22 AM EDT
--- OUTSIDE RECORDS SUMMARY | 2025-03-26 08:16 | XMS_ITS | Clinical Summary ---
Author Organization [facility] [address] [facility] Address [address] [place] [address] Phone Care Team Providers Care Wind Turbine Electrical Engineer Name Role Phone Hernan Nesbitt MD Primary Care Provider [phone] Allergies Active Allergy Reactions Criticality Noted Date [...] (six) hours if needed for wheezing. Active amLODIPine (NORVASC) 5 mg tablet Take 1 tablet (5 mg total) by mouth 1 (one) time each day. 90 tablet 1 08/21/19 25 Active atorvastatin (LIPITOR) 40 mg tablet Take 1 tablet (40 mg total) by mouth 1 (one) time each day. for 90 days 90 each 1 09/25/19 25 Active montelukast (SINGULAIR) 10 mg tablet TAKE 1 TABLET (10 MG TOTAL) BY MOUTH AT BEDTIME. AT BEDTIME. 30 tablet 12/28/19 25 Active Wixela Inhub 250-50 mcg/dose diskus inhaler INHALE 1 PUFF INTO THE LUNGS 2 TIMES A DAY. 1 each 03/06/20 25 Active tamsulosin (FLOMAX) 0.4 mg 24 hr capsule TAKE 1 CAPSULE (0.4 MG TOTAL) BY MOUTH 30 MINUTES AFTER SAME MEAL DAILY 90 capsule 03/06/20 25 Active famotidine (PEPCID) 20 mg tablet TAKE 1 TABLET BY MOUTH TWICE A DAY 60 tablet 02/29/20 25 Active tamsulosin (FLOMAX) 0.4 mg 24 hr capsule Take 1 capsule (0.4 mg total) by mouth 1 (one) time each day. Capsules should be taken 30 minutes following the same meal each day. 90 each 1 08/21/19 25 025 Discontinued famotidine (PEPCID) 20 mg tablet Take 1 tablet (20 mg total) by mouth 2 (two) times a day. 180 tablet 1 09/04/19 25 025 Discontinued Wixela Inhub 250-50 mcg/dose diskus inhaler Inhale 1 puff by mouth 2 (two) times a day. 1 each 1 09/25/19 25 025 Discontinued Surgical History Surgery Date Site/Laterality [...] Patients (1 - 1-dose 75+ series) 12/09/2022 Falls Risk Assessment 02/24/2024 Hepatitis C Screening 02/24/2024 Medicare Annual Wellness Visit 02/24/2024 Social Influencers of Health Screening 02/24/2024 COVID-19 Vaccine ( season) 2024 07/30/2021, 11/25/2020, 10/28/2020 Depression Screening 07/25/2024 Influenza Vaccine (#1) 2025 , 05/17/2019, 04/12/2018, [...] EST Primary hypertension Coronary artery disease involving [place] coronary artery of [place] heart without angina pectoris Mixed hyperlipidemia Chronic obstructive pulmonary disease, unspecified COPD type (CMS/HCC V24, CMS/HCC V28) Benign prostatic hyperplasia with urinary hesitancy Gastroesophageal reflux disease without esophagitis Anxiety and depression Screening for prostate cancer Screening for diabetes mellitus Screening for deficiency anemia LIPID PANEL WITH REFLEX TO DIRECT LDL Routine 07/10/2024 9:45 AM EST Primary hypertension Coronary artery disease involving [place] coronary artery of [place] heart without angina pectoris Mixed hyperlipidemia Chronic [...] to direct LDL (07/10/2024 9:45 AM EST) [facility] Signature Cholesterol 141 0 - 200 mg/dL LAB CHEMISTRY METHOD 07/10/2024 12:10 PM EST [facility] Triglycerides 50 0 - 150 mg/dL LAB CHEMISTRY METHOD 07/10/2024 12:[address] [facility] HDL 76 >=40 mg/dL LAB CHEMISTRY METHOD 07/10/2024 12:[address] [facility] LDL Calculated 55 0 - 100 mg/dL LAB CHEMISTRY METHOD 07/10/2024 12:[address] [facility] VLDL Cholesterol Sanjay 10 mg/dL LAB CHEMISTRY METHOD 07/10/2024 12:[address] [facility] Non HDL Chol. (LDL+VLDL) 65 <145 mg/dL LAB CHEMISTRY METHOD 07/10/2024 12:[address] [facility] Chol/HDL Ratio 1.9 0.0 - 4.4 LAB CHEMISTRY METHOD 07/10/2024 12:[address] [facility] Blood Venous blood specimen / Unknown Venipuncture / Unknown 07/10/2024 9:45 AM EST 07/10/2024 9:45 AM EST us Hernan Nesbitt MD LAB BLOOD ORDERABLES Final Result [facility] [address] [place] [address], [place] [phone] * (ABNORMAL) Comprehensive metabolic panel (07/10/2024 9:45 AM EST) Sodium 140 133 - 145 mmol/L LAB CHEMISTRY METHOD 07/10/2024 12:[address] [facility] Potassium 4.3 3.5 - 5.5 mmol/L LAB CHEMISTRY METHOD 07/10/2024 12:[address] [facility] Chloride 106 96 - 110 mmol/L LAB CHEMISTRY METHOD 07/10/2024 12:[address] [facility] CO2 27 21 - 32 mmol/L LAB CHEMISTRY METHOD 07/10/2024 12:[address] [facility] Anion Gap 7 3 - 11 LAB CHEMISTRY METHOD 07/10/2024 12:[address] [facility] Glucose 111(H) 70 - 100 mg/dL LAB CHEMISTRY METHOD 07/10/2024 12:[address] [facility] BUN 11 5 - 25 mg/dL LAB CHEMISTRY METHOD 07/10/2024 12:[address] [facility] Creatinine 1.07 0.70 - 1.30 mg/dL LAB CHEMISTRY METHOD 07/10/2024 12:[address] [facility] eGFR 72 >=60 mL/min/1. 73m2 LAB CHEMISTRY METHOD 07/10/2024 12:[address] [facility] Comment:Calculation based on the Chronic Kidney Disease Epidemiology Collaboration (CKD-EPI) equation refit without adjustment for race. BUN/Creatinine Ratio 10.3 LAB CHEMISTRY METHOD 07/10/2024 12:[address] [facility] Calcium 9.4 8.5 - 10.5 mg/dL LAB CHEMISTRY METHOD 07/10/2024 12:[address] [facility] AST (SGOT) 38 10 - 42 unit/L LAB CHEMISTRY METHOD 07/10/2024 12:[address] [facility] ALT (SGPT) 56 10 - 60 unit/L LAB CHEMISTRY METHOD 07/10/2024 12:[address] [facility] Alkaline Phosphatase 94 42 - 121 unit/L LAB CHEMISTRY METHOD 07/10/2024 12:[address] [facility] Total Protein 7.0 6.0 - 8.0 g/dL LAB CHEMISTRY METHOD 07/10/2024 12:[address] [facility] Albumin 4.0 3.2 - 5.0 g/dL LAB CHEMISTRY METHOD 07/10/2024 12:[address] [facility] Total Bilirubin 0.7 0.0 - 1.4 mg/dL LAB CHEMISTRY METHOD 07/10/2024 12:[address] [facility] Blood Venous blood specimen / Unknown Venipuncture / Unknown 07/10/2024 9:45 AM EST 07/10/2024 9:45 AM EST Hernan Nesbitt MD LAB BLOOD ORDERABLES Final Result [facility] [address] [place] [address], from Last 3 Months or Most Recently Relevant to Health Maintenance Insurance MEDICARE Care Teams Wind Turbine Electrical Engineer Relationship Specialty Start Date End Date Hernan Nesbitt MD [address] [place] [phone] PCP - General Internal Medicine 04/26/24
== END 2025-03-26 08:03 | disposition home or self-care (01) ==
LOC: HO.HMGCX 08:02
PROVIDERS: PCP Nurse Practitioner Family; Visit Provider Urology
DX: R33.9 Retention of urine, unspecified (principal)
CPT/HCPCS: 76857

== ENCOUNTER → 2025-03-26 08:42 | Outpatient (BNV) | payer MEDICARE, OTHER, SELFPAY | PROVIDERS: PCP Nurse Practitioner Family; Visit Provider Radiology Diagnostic Radiology | DX: R33.9 Retention of urine, unspecified (principal) | CPT/HCPCS: 76857 ==

== ENCOUNTER 2025-04-04 10:05 | Outpatient (AMB) | payer MEDICARE, OTHER, SELFPAY ==
--- NOTE | 2025-04-04 10:20 | MHC.OFFVIS ---
Intake Visit Reasons: Cysto/Uroflow/US Intake Note: patient presents today for: cysto/uruflow/US urology medications: tamsulosin blood thinners: aspirin US done: 03/26/25 today's PVR: 0mls Rip/Mould Operator Required: No Accompanied by: Self / Same As Patient Allergies cat dander Allergy (Severe, Verified 04/04/25 10:27) Unknown HPI Comments Details: Baljeet is a pleasant male. He is a patient of Dr. Bettencourt. He is seen for the following urologic conditions - lower urinary tract symptoms Here for uroflow, discussion bladder ultrasound and cystoscopy Does state improved voiding with terazosin Cystoscopy shows median lip Discussed trial finasteride Prescriptions provided Six-month follow-up office PVR Lower urinary tract symptoms Follow-up presentation with urinary hesitancy and slow stream. Symptoms began within the past year, including hesitation and slow stream. Incomplete bladder emptying is noted, requiring additional voiding attempts. AUA symptom score completed twenty-two bother 3 Had trial of terazosin 5 mg Uroflow - 04/18 25 cc voided volume, Q max 3.1, void time prolonged - technically insufficient test Bladder ultrasound - 50 cc prostate Improved flow post-coitus due to prostate relaxation. No family history of prostate issues. Urinary Symptoms Review - Hesitancy to urinate - Slow urinary stream - Incomplete bladder emptying requiring additional voiding PFSH Medical History SOB (shortness of breath) Allergic rhinitis Asthma Ectopic cardiac beats Lung cancer Leukopenia CAD (coronary artery disease) Trigger finger GERD (gastroesophageal reflux disease) HTN (hypertension) COPD (chronic obstructive pulmonary disease) Surgical History Hx of left knee surgery Hx of colonoscopy Hx of hand surgery History of umbilical hernia repair Family History Father Medical history non-contributory Unknown family medical history Mother CVD (cardiovascular disease) Brother No problems noted. Son No problems noted. 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 Current occupational exposures/hazards: No Cognitive needs: No Hearing needs: No Vision needs: No Review of Systems Const Denies chills and Denies fever(s) Card Reports no additional complaints and Denies syncope Resp Denies cough GI Denies abdominal pain and Denies heartburn Reports as per HPI and Denies change in libido Neuro Denies syncope Psych Denies change in libido Endo Denies change in libido Physical Exam Const General: cooperative, healthy appearing, comfortable and no acute distress Orientation/consciousness: patient oriented x3 HEENT Face and sinus: Yes normal facial exam Mouth: moist mucous membranes Neck Neck: Yes normal visual inspection, Yes full ROM and Yes trachea midline Chest Chest palpation & inspection: normal inspection of the chest Resp Effort & Inspection: normal respiratory effort, able to speak in complete sentences and no respiratory distress GI Inspection: Yes normal to inspection Back/Spine/Pelvis Cervical Spine: normal cervical lordosis Thoracic/Lumbar Spine: thoracic and lumbar spine normal to inspection Skin General skin exam: no rashes or lesions noted Neuro General: patient oriented x3, gait normal, tone normal and moves all extremities Extrem General: Yes normal to inspection and Yes capillary refill normal Office Procedures Cystoscopy Consent Discussed risk and benefit or proposed procedure with the patient. Information consent for procedure given to the patient. Discussed technical aspects, risks, benefits and alternatives in full. Addressed all of the patient's questions and concerns regarding the procedure. The patient demonstrated knowledge and understanding. They wish to proceed with this procedure. Preparation The patient was prepped in the usual manner. A clay roaster was present and in the room. Genitalia was prepped with betadine solution in a sterile manner. Lidocaine Jelly 2% was placed into the urethra and 16Fr flexible Olympus cystoscope was inserted into the meatus after adequate lubrication. Procedure Cystoscopy performed using a disposable Urovue digital 16 Gabonese cystoscope. Meatus circumcised Urethra anterior and posterior urethra normal Prostatic Urethra high-riding bladder lip Bladder examination with retroflexion of cystoscope Bladder Orifices normal shape and position Bladder Capacity Normal Trabeculations grade 1 Cellule Formation None Diverticulum Formation None Mucosal Erythema None Bladder Tumor None [id number] DISPOSABLE SCOPE URO-G FLEXIBLE SCOPE Procedure code (CPT) selection complete AMB Uroflow Complex uroflow performed by: Maxwell Downing Maximum urinary flow rate (mL/second): 5 Voided volume (mL): 25 Comments: Inadequate volume of urination for formal analysis [id number] Procedure code (CPT) selection complete Office Meds lidocaine HCl 2 % mucosal jelly in applicator Performing Provider: Maxwell Downing MD Performing Location: [facility] Administered by: Yoly Escalante RN on 04/04/25 10:42 Dose Route Admin Location Dispensed Lot Number Expiration Date [facility] Regulatory Scientist 10 mL intra-urethral 10 mL nitrofurantoin monohydrate/macrocrystals 100 mg capsule Performing Provider: Maxwell Downing MD Performing Location: [facility] Administered by: Yoly Escalante RN on 04/04/25 10:42 Dose Route Admin Location Dispensed Lot Number Expiration Date [place] Regulatory Scientist 100 mg PO 1 cap Results AMB Urinalysis, Automated UA Leukoctes 0 Karli/uL Last Edit by KANDI Humphreys on 04/04/25 16:04 UA Nitrite Negative Last Edit by KANDI Humphreys on 04/04/25 16:04 UA Urobilinogen 0.2 mg/dL Last Edit by KANDI Humphreys on 04/04/25 16:04 UA Protein 15 mg/dL Last Edit by KANDI Humphreys on 04/04/25 16:04 UA pH 6.0 Last Edit by KANDI Humphreys on 04/04/25 16:04 UA Blood 0 Andrea/uL Last Edit by KANDI Humphreys on 04/04/25 16:04 UA Specific [place] 1.015 Last Edit by KANDI Humphreys on 04/04/25 16:04 UA Ketone Negative Last Edit by KANDI Humphreys on 04/04/25 16:04 UA Bilirubin 0 mg/dL Last Edit by KANDI Humphreys on 04/04/25 16:04 UA Glucose 0 mg/dL Last Edit by KANDI Humphreys on 04/04/25 16:04 Results Reviewed Results Reviewed: Laboratory Last Values Urine pH (Auto) 6.0 04/04/25 16:02 Specific [place] (Auto) 1.015 04/04/25 16:02 Urine Protein (Auto) 15 mg/dL 04/04/25 16:02 Glucose (UA)(Auto) 0 mg/dL 04/04/25 16:02 Urine Ketones (Auto) Negative 04/04/25 16:02 Urine Blood (Auto) 0 Andrea/uL 04/04/25 16:02 Urine Nitrite (Auto) Negative 04/04/25 16:02 Urine Bilirubin (Auto) 0 mg/dL 04/04/25 16:02 Urine Urobilinogen (Auto) 0.2 mg/dL 04/04/25 16:02 Leukocyte Esterase (Auto) 0 Karli/uL 04/04/25 16:02 Assessment & Plan Assessment & Plan (1) Dribbling following urination: Code(s): N39.43 - Post-void dribbling Category: Medical (2) Incomplete bladder emptying: Code(s): R33.9 - Retention of urine, unspecified Category: Medical Plan Trial finasteride Six-month follow-up Orders: Orders AMB Cystoscopy 04/04/25 N39.43 - Post-void dribbling, R33.9 - Retention of urine, unspecified, R39.12 - Poor urinary stream AMB Urinalysis Automated 04/04/25 Z13.9 - Encounter for screening, unspecified AMB Uroflow 04/04/25 R39.11 - Hesitancy of micturition Medications: New finasteride 5 mg PO DAILY 90 tabs 1RF 90 days R39.12 - Poor urinary stream Changed From terazosin 5 mg PO BEDTIME 30 days 30 caps 2RF R33.9 - Retention of urine, unspecified To terazosin 5 mg PO BEDTIME 90 caps 1RF 90 days R33.9 - Retention of urine, unspecified Patient Instructions: This note is constructed using voice recognition software. While every effort has been made to ensure accuracy epic ambulatory specialists errors may have been included. Imaging studies, laboratory and physical exam results were discussed and reviewed in detail. No major barriers to patient understanding were identified. An opportunity to ask questions regarding the treatment plan was provided. All questions were answered. The patient expressed understanding and agreement with the above treatment plan. The patient is aware they should contact our office by phone for worsening of their current condition or the appearance of new urologic symptoms. Compliance is encouraged with any medications and followup testing that is ordered. It is a privilege to participate in the urologic care of your patient. If you have any questions or concerns regarding treatment for the above conditions, or other urologic issues, please do not hesitate to contact me. The office telephone contact is [phone]. Sincerely, Dr Maxwell Downing MD, [facility] - Urology Compassionate Specialist Care for the Genitourinary System Coding Level of Care Code Est Pt Level 4 (04227) Diagnoses Dribbling following urination N39.43 Incomplete bladder emptying R33.9 CPT Codes Cystoscopy - CPT: 15067-[id number] ([id number])
--- OUTSIDE RECORDS SUMMARY | 2025-04-04 12:14 | XMS_ITS | Clinical Summary ---
Author Organization [facility] [address] [facility] Address [address] [place] [address] Phone Care Team Providers Care Willow Machine Operator Name Role Phone Hernan Nesbitt MD Primary Care Provider [phone] Allergies Active Allergy Reactions Criticality Noted Date [...] the same meal each day. 90 each 08/21/19 25 025 Discontinued Wixela Inhub 250-50 mcg/dose diskus inhaler Inhale 1 puff by mouth 2 (two) times a day. 1 each 09/25/19 25 025 Discontinued Surgical History Surgery [...] 02/24/2024 Social Influencers of Health Screening 02/24/2024 Depression Screening 07/25/2024 COVID-19 Vaccine ( season) 2025 07/30/2021, 11/25/2020, 10/28/2020 Influenza Vaccine (#1) 2025 [...] EST Primary hypertension Coronary artery disease involving caddo coronary artery of caddo heart without angina pectoris Mixed hyperlipidemia Chronic obstructive pulmonary disease, unspecified COPD type (CMS/HCC V24, CMS/HCC V28) Benign prostatic hyperplasia with urinary hesitancy Gastroesophageal reflux disease without esophagitis Anxiety and depression Screening for prostate cancer Screening for diabetes mellitus Screening for deficiency anemia LIPID PANEL WITH REFLEX TO DIRECT LDL Routine 07/10/2024 9:45 AM EST Primary hypertension Coronary artery disease involving caddo coronary artery of caddo heart without angina pectoris Mixed hyperlipidemia Chronic [...] LAB CHEMISTRY METHOD 07/10/2024 12:10 PM EST [facility] Triglycerides 50 0 - 150 mg/dL LAB CHEMISTRY METHOD 07/10/2024 12:10 PM EST [facility] HDL 76 >=40 mg/dL LAB CHEMISTRY METHOD 07/10/2024 12:[address] [facility] LDL Calculated 55 0 - 100 mg/dL LAB CHEMISTRY METHOD 07/10/2024 12:[address] [facility] VLDL Cholesterol Sanjay 10 mg/dL LAB CHEMISTRY METHOD 07/10/2024 12:[address] [facility] Non HDL Chol. (LDL+VLDL) 65 <145 mg/dL LAB CHEMISTRY METHOD 07/10/2024 12:[address] [facility] Chol/HDL Ratio 1.9 0.0 - 4.4 LAB CHEMISTRY METHOD 07/10/2024 12:[address] [facility] Blood Venous blood specimen / Unknown Venipuncture / Unknown 07/10/2024 9:45 AM EST 07/10/2024 9:45 AM EST us Hrenan Nesbitt MD LAB BLOOD ORDERABLES Final Result [facility] [address] [place] [address], [place] [phone] * (ABNORMAL) Comprehensive metabolic panel (07/10/2024 9:45 AM EST) Sodium 140 133 - 145 mmol/L LAB CHEMISTRY METHOD 07/10/2024 12:[address] [facility] Potassium 4.3 3.5 - 5.5 mmol/L LAB CHEMISTRY METHOD 07/10/2024 12:[address] [facility] Chloride 106 96 - 110 mmol/L LAB CHEMISTRY METHOD 07/10/2024 12:[address] [facility] CO2 27 21 - 32 mmol/L LAB CHEMISTRY METHOD 07/10/2024 12:[address] [facility] Anion Gap 7 3 - 11 LAB CHEMISTRY METHOD 07/10/2024 12:[address] [facility] Glucose 111(H) 70 - 100 mg/dL LAB CHEMISTRY METHOD 07/10/2024 12:[address] [facility] BUN 11 5 - 25 mg/dL LAB CHEMISTRY METHOD 07/10/2024 12:[address] [facility] Creatinine 1.07 0.70 - 1.30 mg/dL LAB CHEMISTRY METHOD 07/10/2024 12:[address] [facility] eGFR 72 >=60 mL/min/1. 73m2 LAB CHEMISTRY METHOD 07/10/2024 12:[address] [facility] Comment:Calculation based on the Chronic Kidney Disease Epidemiology Collaboration (CKD-EPI) equation refit without adjustment for race. BUN/Creatinine Ratio 10.3 LAB CHEMISTRY METHOD 07/10/2024 12:[address] [facility] Calcium 9.4 8.5 - 10.5 mg/dL LAB CHEMISTRY METHOD 07/10/2024 12:[address] [facility] AST (SGOT) 38 10 - 42 unit/L LAB CHEMISTRY METHOD 07/10/2024 12:[address] [facility] ALT (SGPT) 56 10 - 60 unit/L LAB CHEMISTRY METHOD 07/10/2024 12:[address] [facility] Alkaline Phosphatase 94 42 - 121 unit/L LAB CHEMISTRY METHOD 07/10/2024 12:[address] [facility] Total Protein 7.0 6.0 - 8.0 g/dL LAB CHEMISTRY METHOD 07/10/2024 12:[address] [facility] Albumin 4.0 3.2 - 5.0 g/dL LAB CHEMISTRY METHOD 07/10/2024 12:[address] [facility] Total Bilirubin 0.7 0.0 - 1.4 mg/dL LAB CHEMISTRY METHOD 07/10/2024 12:[address] [facility] Blood Venous blood specimen / Unknown Venipuncture / Unknown 07/10/2024 9:45 AM EST 07/10/2024 9:45 AM EST us Hernan Nesbitt MD LAB BLOOD ORDERABLES Final Result [facility] ([facility]) [facility] [address] [place] [address], from Last 3 Months or Most Recently Relevant to Health Maintenance Insurance MEDICARE Care Teams Willow Machine Operator Relationship Specialty Start Date End Date Hernan Nesbitt MD [address] [place] [address] [id number] PCP - General Internal Medicine 04/26/24
== END 2025-04-04 11:13 | disposition home or self-care (01) ==
LOC: HO.HUSH 10:06
PROVIDERS: PCP Nurse Practitioner Family; Visit Provider Urology
DX: N39.43 Post-void dribbling (principal); R33.9 Retention of urine, unspecified
CPT/HCPCS: 52000; 99214

== ENCOUNTER → 2025-04-04 10:05 | Outpatient (BNVA) | payer MEDICARE, OTHER, SELFPAY | PROVIDERS: PCP Nurse Practitioner Family; Visit Provider Urology | DX: N39.43 Post-void dribbling (principal); R33.9 Retention of urine, unspecified; Z13.9 Encounter for screening, unspecified | CPT/HCPCS: 52000; 81003; 99212 ==

== ENCOUNTER 2025-05-29 10:25 | Outpatient (AMB) | payer MEDICARE, OTHER, SELFPAY ==
--- NOTE | 2025-05-29 10:32 | A.OFFPC_ITS ---
Vital Signs 05/29/25 10:42 Height 5 ft 9 in Weight 183 lb BMI 27.0 BP 120/68 Blood Pressure Location Lt brachial Position Sitting Respiration 16 Pulse 70 Pulse Source Pulse Oximeter Temp 97.7 F Temp Source Oral Pulse Oximetry (%) 95 Oxygen Delivery Method Room Air Intake Visit Reasons: 6m follow up reschedule Plastic Panel Installer Required: No Accompanied by: Self / Same As Patient Allergies cat dander Allergy (Severe, Verified 05/29/25 10:54) Unknown Medication List - Last Reconciled 05/29/25 by Daniel Mejia, IMAGING ACCOUNT MANAGER- albuterol sulfate 90 mcg/actuation 2 puffs PO Q6H PRN amlodipine 5 mg PO DAILY 90 days ascorbate calcium (vitamin C) 500 mg PO DAILY aspirin (Adult Aspirin Regimen) 81 mg PO DAILY 90 days atorvastatin 40 mg PO DAILY 90 days cholecalciferol (vitamin D3) 50 mcg PO DAILY citalopram 20 mg PO DAILY 90 days famotidine 20 mg PO BID PRN finasteride 5 mg PO DAILY 90 days fluticasone propion-salmeterol 250-50 mcg/dose (Wixela Inhub) 1 inh inhalation BID 30 days fluticasone propion-salmeterol 250-50 mcg/dose (Wixela Inhub) 1 inh inhalation BID 30 days latanoprost 0.005% drps ophthalmic (eye) DAILY lisinopril 20 mg PO DAILY montelukast 10 mg PO BEDTIME terazosin 5 mg PO BEDTIME 90 days umeclidinium 62.5 mcg/actuation (Incruse Ellipta) 1 inh inhalation DAILY 30 days vitamin E (dl, acetate) 45 mg PO DAILY Tobacco use date assessed: 05/29/25 Fall risk assessment: No Falls in past year Last assessed Fall Risk: 05/29/25 Dental Screening Dental Screen Date: 05/29/25 Did you have a dental visit in the last 12 months?: Yes Did you have a dental problem in the last 6 months where you did not have access to dental care?: No Was dental information given to patient?: Patient has dentist HPI 6m follow up reschedule 2 HPI Details Chief Complaint Patient presents for follow-up and evaluation of recent chest discomfort. History of Present Illness The patient is a 79-year-old male presenting for follow-up for dyslipidemia and hypertension. He reports a recent episode of left upper chest discomfort that occurred while working out heavily and was reproducible CP. His blood pressure is currently well-controlled. The patient's cardiac history includes a cardiac catheterization approximately 8 years ago which was clear, a stress test in 2021, and an echocardiogram in 2021 which was described as benign. Social History - Exercise: Patient reports he was worki ng out heavily. Health Maintenance - Cardiac screening: Patient had a stres s test and echocardiogram in 2021. Review of Systems - Cardiovascular: Reports recent reprodu cible left upper chest discomfort with heavy exertion. -no sob, CARLISLE, dizziness, blurred vision, Physical Exam General: Cooperative, healthy appearing, comfortable, no acute distress and well developed Orientation: Patient oriented x3 Limitations: No limitations Head: Normal to inspection Ears: Hearing grossly normal bilaterally Nose: Normal external nose present Face and sinus: Normal facial exam Eyes: Appearance normal, both eyes and all related structures Neck: Normal visual inspection and Yes full ROM Respiratory: Normal respiratory effort and able to speak in complete sentences. Clear to auscultation bilaterally Cardiovascular: Regular rate and rhythm. Normal S1 and S2 GI: Normal to inspection. Soft to palpation and nontender Neuro: Patient oriented x3 Extremities: No edema noted, normal to inspection Results - Cardiac Catheterization (approximately 8 years ago): Results were clear. - Echocardiogram (2021): Benign. Plan 1. Chest Discomfort The patient reports recent reproducible left upper chest discomfort associated with heavy exertion (chest work out). An EKG will be obtained today for further evaluation. The patient was advised to go to the emergency room for any worsening of symptoms. 2. Hypertension The patient has a history of hypertension, which is currently well-controlled with a perfect blood pressure reading. Continue current management. 3. Dyslipidemia The patient has a history of dyslipidemia. Continue current management. Discussion Notes I discussed the patient's recent chest discomfort. I explained that an EKG would be performed today to evaluate his symptoms. I advised him to go to the emergency room if his symptoms worsen. Labs ordered Patient Instructions - We will perform an EKG today to check your heart. - If your chest discomfort gets worse, g o to the emergency room. [facility] Medical History SOB (shortness of breath) Allergic rhinitis Asthma Ectopic cardiac beats Lung cancer Leukopenia CAD (coronary artery disease) Trigger finger GERD (gastroesophageal reflux disease) HTN (hypertension) COPD (chronic obstructive pulmonary disease) Surgical History Hx of left knee surgery Hx of colonoscopy Hx of hand surgery History of umbilical hernia repair Family History Father Medical history non-contributory Unknown family medical history Mother CVD (cardiovascular disease) Brother No problems noted. Son No problems noted. 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 1. Little interest or pleasure in doing things: not at all 2. Feeling down, depressed, or hopeless: not at all 3. Trouble falling or staying asleep, or sleeping too much: not at all 4. Feeling tired or having little energy: not at all 5. Poor appetite or overeating: not at all 6. Feeling bad about yourself - or that you are a failure or have let yourself or your family down: not at all 7. Trouble concentrating on things, such as reading the newspaper or watching television: not at all 8. Moving or speaking so slowly that other people could have noticed. Or the opposite - being so fidgety or restless that you have been moving around a lot more than usual: not at all 9. Thoughts that you would be better off or of hurting yourself in some way: not at all Total score: 0 Depression Screening Interpretation: Negative Depression Screening Done: Yes 19982 - PHQ-9 Billing: Patient declined-do not bill Source: Developed by Drs. Garcia Ruth, Jess Charles, Benito Kennedy and colleagues, with an educational uziel from [employer] Thrive Questionnaire Date Thrive assessed: 05/29/25 I am a: Patient What is your living situation today?: I have a steady place to live Within the past 12 months, did the food you bought not last and you didn't have the money to get more?: Never true Within the past 12 months, did you worry whether your food would run out before you got money to buy more?: Never true Do you have trouble paying for medicines?: I choose not to answer this question Do you have trouble getting transportation to medical appointments?: I choose not to answer this question Do you have trouble paying your heating and electricity bill?: I choose not to answer this question Do you have trouble taking care of your child, family member or friend?: I choose not to answer this question Do you have trouble with day-to-day activities such as bathing, preparing meals, shopping, managing finances, etc.?: I choose not to answer this question Are you currently unemployed and looking for a job?: I choose not to answer this question Are you interested in more education?: I choose not to answer this question Please select the resources that you would like help with: None Currently or been in a relationship where the following occur: I choose not to answer THRIVE Score: 0 AUDIT C Alcohol Use Questionnaire (AUDIT-C) 1. How often do you have a drink containing alcohol?: Never Total Score: 0 CLAUDIA-7 AMB Questionnaire CLAUDIA-7 Date CLAUDIA - 7 assessed: 05/29/25 Feeling nervous, anxious, or on edge: 0 = Not at all Not being able to stop or control worryin = Not at all Worrying too much about different things: 0 = Not at all Trouble relaxin = Not at all Being so restless that it is hard to sit still: 0 = Not at all Becoming easily annoyed or irritable: 0 = Not at all Feeling afraid as if something awful might happen: 0 = Not at all Total CLAUDIA-7 score (0-4 normal; 5-9 mild; 10-14 moderate; 15-21 severe): 0 Source: Developed by Drs. Garcia Ruth, Jess Charles, Benito Kennedy and colleagues, with an educational uziel from [employer] CLAUDIA-7 Assessment Billing CLAUDIA-7 Assessment Tool: CLAUDIA-7 Assessment 39946 Physical exam (Primary Care) Vital Signs: Last Vital Signs Temp 97.7 F 05/29/25 10:42 Pulse 70 05/29/25 10:42 Resp 16 05/29/25 10:42 BP 120/68 05/29/25 10:42 Pulse Ox 95 05/29/25 10:42 Oxygen Delivery Method Room Air 05/29/25 10:42 BMI result Body Mass Index 27.0 Tobacco/Smoking Status: Tobacco use Status Tobacco use date assessed 05/29/25 05/29/25 10:49 Patient Tobacco Use Status Former Tobacco user 05/29/25 10:33 e-Cigarette/Vaping Use Never Used 05/29/25 10:33 PHQ-9: PHQ-9 Score PHQ-9: Total score 0 05/29/25 10:49 Depression Screening Interpretation: Negative Thrive Assessment: Date of Thrive Assessment Date Thrive assessed 05/29/25 05/29/25 10:33 Currently or been in a relationship where the following occur: I choose not to answer Coding Level of Care Code Est Pt Level 3 (73559) Diagnoses HTN (hypertension) I10 Dyslipidemia E78.5 Chest discomfort R07.89 Additional Codes CLAUDIA-7 Assessment Billing - CLAUDIA-7 Assessment Tool: CLAUDIA-7 Assessment 68359 ([id number]) Assessment & Plan Assessment & Plan (1) HTN (hypertension): Code(s): I10 - Essential (primary) hypertension Category: Medical (2) Dyslipidemia: Code(s): E78.5 - Hyperlipidemia, unspecified Category: Medical (3) Chest discomfort: Code(s): R07.89 - Other chest pain Category: Medical Plan . Orders: Orders Comprehensive [place]. Panel Fast Today E78.5 - Hyperlipidemia, unspecified, I10 - Essential (primary) hypertension Complete Blood Count Auto Diff Today E78.5 - Hyperlipidemia, unspecified, I10 - Essential (primary) hypertension TSH reflex Free T4 Today E78.5 - Hyperlipidemia, unspecified, I10 - Essential (primary) hypertension UA CC w/rflx Micro + Cult Today E78.5 - Hyperlipidemia, unspecified, I10 - Essential (primary) hypertension Lipid Panel Today E78.5 - Hyperlipidemia, unspecified, I10 - Essential (primary) hypertension AMB EKG-In Office Today R07.89 - Other chest pain Medications: New sildenafil (Viagra) administer 30 minutes to 4 hours before activity 25 mg PO DAILY PRN 10 tabs 0RF sexual activity 10 days
[2025-05-29 10:42] VITALS: BP 120/68; PULSE 70; RESP 16; TEMP 36.5; O2SAT 95; BMI 27.0
--- OUTSIDE RECORDS SUMMARY | 2025-05-29 12:09 | XMS_ITS | Clinical Summary ---
Author Organization [facility] [address] [facility] Address [address] [place] [address] Phone Care Team Providers Care Rn Access Name Role Phone Hernan Nesbitt MD Primary Care Provider [phone] Allergies Active Allergy Reactions Criticality Noted Date [...] day. 90 tablet 1 08/21/19 25 Active montelukast (SINGULAIR) 10 mg tablet [...] A DAY 60 tablet 02/29/20 25 Active atorvastatin (LIPITOR) 40 mg tablet TAKE 1 TABLET (40 MG TOTAL) BY MOUTH 1 (ONE) TIME EACH DAY. FOR 90 DAYS 30 tablet 05/08/20 25 Active atorvastatin (LIPITOR) 40 mg tablet Take 1 tablet (40 mg total) by mouth 1 (one) time each day. for 90 days 90 each 1 09/25/19 25 025 Discontinued Surgical [...] EST Primary hypertension Coronary artery disease involving [place] coronary artery of [place] heart without angina pectoris Mixed hyperlipidemia Chronic obstructive pulmonary disease, unspecified COPD type (CMS/HCC V24, CMS/HCC V28) Benign prostatic hyperplasia with urinary hesitancy Gastroesophageal reflux disease without esophagitis Anxiety and depression Screening for prostate cancer Screening for diabetes mellitus Screening for deficiency anemia LIPID PANEL WITH REFLEX TO DIRECT LDL Routine 07/10/2024 9:45 AM EST Primary hypertension Coronary artery disease involving [place] coronary artery of [place] heart without angina pectoris Mixed hyperlipidemia Chronic [...] 07/10/2024 12:[address] [facility] Triglycerides 50 0 - 150 mg/dL LAB CHEMISTRY METHOD 07/10/2024 12:10 PM EST [facility] HDL 76 >=40 mg/dL LAB [...] Nesbitt MD LAB BLOOD ORDERABLES Final Result [facility] [address] [place] [address], [place] [phone] * (ABNORMAL) Comprehensive metabolic panel (07/10/2024 9:45 [...] Nesbitt MD LAB BLOOD ORDERABLES Final Result [facility] [address] [place] [address], [place] [phone] from Last 3 Months or Most Recently Relevant to Health Maintenance Insurance MEDICARE Care Teams Rn Access Relationship Specialty Start Date End Date Hernan Nesbitt MD [address] [place] [phone] PCP - General Internal Medicine 04/26/24
== END 2025-05-29 11:32 | disposition home or self-care (01) ==
LOC: HO.HMCC 10:26
PROVIDERS: PCP Nurse Practitioner Family; Visit Provider Nurse Practitioner Family
DX: I10 Essential (primary) hypertension (principal); E78.5 Hyperlipidemia, unspecified; R07.89 Other chest pain

== ENCOUNTER → 2025-05-29 10:25 | Outpatient (BNVA) | payer MEDICARE, OTHER, SELFPAY | PROVIDERS: PCP Nurse Practitioner Family; Visit Provider Nurse Practitioner Family | DX: I10 Essential (primary) hypertension (principal); E78.5 Hyperlipidemia, unspecified; R07.89 Other chest pain | CPT/HCPCS: 96127; 99212 ==

== ENCOUNTER 2025-06-05 10:12 | Outpatient (AMB) | payer MEDICARE, OTHER, SELFPAY ==
[2025-06-05 10:27] VITALS: BP 102/62; PULSE 73; O2SAT 95; BMI 27.0
--- NOTE | 2025-06-05 10:27 | A.OFFVIS_ITS ---
Vital Signs 06/05/25 10:27 Height 5 ft 9 in Weight 182 lb 15.739 oz BMI 27.0 BP 102/62 Blood Pressure Location Lt brachial Position Sitting Pulse 73 Pulse Source Pulse Oximeter Pulse Oximetry (%) 95 Oxygen Delivery Method Room Air Intake Visit Reasons: COPD Intake Note: pt is here for follow up and states he is feeling fine, he is good. Office Clerk Routine Required: No Color Maker Formulator: Color Maker Formulator offered & declined Allergies cat dander Allergy (Severe, Verified 06/05/25 10:53) Unknown Medication List - Last Reconciled 06/05/25 by Justin Crenshaw MD albuterol sulfate 90 mcg/actuation 2 puffs PO Q6H PRN amlodipine 5 mg PO DAILY 90 days ascorbate calcium (vitamin C) 500 mg PO DAILY aspirin (Adult Aspirin Regimen) 81 mg PO DAILY 90 days atorvastatin 40 mg PO DAILY 90 days cholecalciferol (vitamin D3) 50 mcg PO DAILY citalopram 20 mg PO DAILY 90 days famotidine 20 mg PO BID PRN finasteride 5 mg PO DAILY 90 days fluticasone propion-salmeterol 250-50 mcg/dose (Wixela Inhub) 1 inh inhalation BID 30 days latanoprost 0.005% drps ophthalmic (eye) DAILY lisinopril 20 mg PO DAILY montelukast 10 mg PO BEDTIME sildenafil (Viagra) 25 mg PO DAILY PRN 10 days terazosin 5 mg PO BEDTIME 90 days umeclidinium 62.5 mcg/actuation (Incruse Ellipta) 1 inh inhalation DAILY 30 days vitamin E (dl, acetate) 45 mg PO DAILY Do you need a note to return to daycare/school/sports/work: No HPI HPI COPD: Details: GIOVANI IS 79 YEARS OLD GENTLEMAN, COMES FOR HIS PULMONARY FOLLOW-UP AFTER 6 MONTHS. HAS BEEN VERY STABLE, .WITHOUT ANY ACUTE EXACERBATION CONTINUES TO USE HIS MEDS REGULARLY, AND MOST OF THE SYMPTOMS REMAINING WELL CONTROLLED,. 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 KNIGHT OF MEDS ETC.. [facility] Medical History SOB (shortness of breath) Allergic rhinitis Asthma Ectopic cardiac beats Lung cancer Leukopenia CAD (coronary artery disease) Trigger finger GERD (gastroesophageal reflux disease) HTN (hypertension) COPD (chronic obstructive pulmonary disease) Surgical History Hx of left knee surgery Hx of colonoscopy Hx of hand surgery History of umbilical hernia repair Family History Father Medical history non-contributory Unknown family medical history Mother CVD (cardiovascular disease) Brother No problems noted. Son No problems noted. 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 Current occupational exposures/hazards: No Cognitive needs: No Hearing needs: No Vision needs: No Review of Systems Const All systems reviewed & are unremarkable except as noted in HPI and below ENT Reports nasal congestion (Mild intermittent) and Reports nasal discharge Card Denies chest pain, Denies irregular heart rhythm and Denies leg edema Resp Reports as per HPI GI Reports heartburn (Controlled with med) Reports no additional complaints Musc Reports no additional complaints Skin/Breast Reports system reviewed and no additional complaints, except as documented Neuro Reports no additional complaints Psych Reports depression (Controlled with med) Endo Reports no additional complaints Pernell/Lymph Reports no additional complaints Physical Exam Vital Signs: Last Vital Signs Pulse 73 06/05/25 10:27 BP 102/62 06/05/25 10:27 Pulse Ox 95 06/05/25 10:27 Oxygen Delivery Method Room Air 06/05/25 10:27 BMI result Body Mass Index 27.0 Const General: healthy appearing, comfortable, no acute distress, alert and awake Orientation/consciousness: patient oriented x3 HEENT Head: Yes normal to inspection General nose exam: No nasal polyps present and No nasal discharge present Face and sinus: Yes sinuses nontender Mouth: oropharynx normal Throat: Yes posterior oropharynx normal Eyes General: appearance normal, both eyes and all related structures Neck Neck: Yes normal visual inspection, Yes no lymphadenopathy, Yes trachea midline and Yes no JVD Thyroid: Thyroid normal Chest Chest palpation & inspection: normal inspection of the chest, normal palpation of entire chest wall and no tenderness Resp Other: Percussion note resonant, breath sounds are distant with prolonged expiratory phase. No audible wheezes but there are a few inspiratory crackles over the lower lobes. Cardio Palpation: normal PMI Rate: regular rate Rhythm: regular rhythm Heart sounds: no gallops and no murmurs Peripheral pulses: Peripheral pulses 2+ throughout GI Palpation (GI): Soft to palpation, nontender, No hepatosplenomegaly present and no masses Auscultation: normal bowel sounds Back/Spine/Pelvis Thoracic/Lumbar Spine: thoracic and lumbar spine normal to inspection Skin General skin exam: no rashes or lesions noted Neuro General: patient oriented x3 and no focal motor deficits Cranial nerves: Yes CN's II-XII intact bilaterally Extrem General: Yes normal to inspection, Yes no clubbing, cyanosis or edema and Yes no calf tenderness Psych Appearance: grossly normal and well kempt Speech and movement: Normal speech and movement present Assessment & Plan Assessment & Plan (1) COPD (chronic obstructive pulmonary disease): Comment: HE HAS CHRONIC OBSTRUCTIVE PULM . DISORDER , MODERATELY SEVERE , BUT REMAINS STABLE AND CONTROLLED HOWEVER HE COMPLAINS OF SOMEWHAT INCREASED SHORTNESS OF BREATH ON EXERTION AND ALSO MORE FREQUENT EPISODES OF COUGH. Code(s): J44.9 - Chronic obstructive pulmonary disease, unspecified Category: Medical Plan: CONTINUE TO USE WIXELA 250-51 INHALATION B.I.D. INCRUSE ELLIPTA 1 INHALATION DAILY , AND ALBUTEROL HFA 2 PUFFS Q 6 HOURS P.R.N. (2) Allergic rhinitis: Comment: HISTORY OF CHRONIC ALLERGIC RHINITIS WITH FREQUENT FLARE UPS ESPECIALLY IN SUMMER MONTHS. HIS CAT WAS A BIG SOURCE OF HIS ALLERGIES. FEELS BETTER SINCE HIS CAT . ALSO HE HAS BEEN FEELING BETTER SINCE HE IS ON MONTELUKAST. Code(s): J30.9 - Allergic rhinitis, unspecified Category: Medical Plan: CONTINUE USING MONTELUKAST 10 MG DAILY Coding Level of Care Code Est Pt Level 3 (86438) Diagnoses COPD (chronic obstructive pulmonary disease) J44.9 Allergic rhinitis J30.9
--- OUTSIDE RECORDS SUMMARY | 2025-06-05 12:01 | XMS_ITS | Clinical Summary ---
Author Organization [facility] [address] [facility] Address [address] [place] [address] Phone Care Team Providers Care Mortgage Protection Specialist Name Role Phone Hernan Nesbitt MD Primary Care Provider [phone] Allergies Active Allergy Reactions Criticality Noted Date [...] EST Primary hypertension Coronary artery disease involving [place] coronary artery of [place] heart without angina pectoris Mixed hyperlipidemia Chronic obstructive pulmonary disease, unspecified COPD type (CMS/HCC V24, CMS/HCC V28) Benign prostatic hyperplasia with urinary hesitancy Gastroesophageal reflux disease without esophagitis Anxiety and depression Screening for prostate cancer Screening for diabetes mellitus Screening for deficiency anemia LIPID PANEL WITH REFLEX TO DIRECT LDL Routine 07/10/2024 9:45 AM EST Primary hypertension Coronary artery disease involving [place] coronary artery of [place] heart without angina pectoris Mixed hyperlipidemia Chronic [...] 12:10 PM [facility] Triglycerides 50 0 - 150 mg/dL LAB CHEMISTRY METHOD 07/10/2024 12:10 PM EST [facility] HDL 76 >=40 mg/dL LAB CHEMISTRY METHOD 07/10/2024 12:10 PM [facility] LDL Calculated 55 0 - [...] Nesbitt MD LAB BLOOD ORDERABLES Final Result [facility] [address] [place] [address], [place] [phone] * (ABNORMAL) Comprehensive metabolic panel (07/10/2024 9:45 [...] [facility] Comment:Calculation based on the Chronic [...] Nesbitt MD LAB BLOOD ORDERABLES Final Result [facility] [address] [place] [address], [place] [phone] from Last 3 Months or Most Recently Relevant to Health Maintenance Insurance MEDICARE Care Teams Mortgage Protection Specialist Relationship Specialty Start Date End Date Hernan Nesbitt MD [address] [place] [address] [phone] PCP - General Internal Medicine 04/26/24
== END 2025-06-05 11:13 | disposition home or self-care (01) ==
PROVIDERS: PCP Nurse Practitioner Family; Visit Provider Internal Medicine
DX: J44.9 Chronic obstructive pulmonary disease, unspecified (principal); J30.9 Allergic rhinitis, unspecified
CPT/HCPCS: 99213

== ENCOUNTER → 2025-06-05 10:12 | Outpatient (BNVA) | payer MEDICARE, OTHER, SELFPAY | PROVIDERS: PCP Nurse Practitioner Family; Visit Provider Internal Medicine | DX: J44.9 Chronic obstructive pulmonary disease, unspecified (principal); Z87.891 Personal history of nicotine dependence; Z79.82 Long term (current) use of aspirin; J30.9 Allergic rhinitis, unspecified | CPT/HCPCS: 99212 ==